=== PATIENT | male | born 1935 | race Caucasian/White ===

== ENCOUNTER → 2018-04-15 | Outpatient (CLI) | payer MEDICARE, OTHER ==
--- NOTE | 2018-04-15 12:51 | US ---
EXAMINATION TYPE: US renal artery duplex complete DATE OF EXAM: 04/15/2018 COMPARISON: Renal ultrasound February 21, 2011 CLINICAL HISTORY: I70.1 Atherosclerosis of renal artery. MEASUREMENTS: RENAL SIZE: Rt Kidney: 11.8 x 5.9 x 5.3cm Lt Kidney: 8.2 x 4.4 x 3.2 RESISTANCE INDEX Right: 0.79 Left: -- RA/AO RATIO (< 3.5 ) Right: 2.1 Left: -- RA VELOCITY ( < 180 cm/s) Right: 166 Left: -- Patient of large body habitus, with extensive overlying bowel gas. Aorta only viewed at mid portion. 2 right kidney cysts 1.) 2.1 x 1.7 x 1.8cm 2.) 4.4 x 3.8 x 3.5cm Left kidney atrophied and ill defined. Unable to visualize blood flow in left kidney. There is one po ssible vessel where flow is picked up but this may not be a vessel in the kidney, it is seen at the a edi of the hilum. Patient states that he had 2 stents put in his left kidney but thought they may be occluded. Suboptimal study due to patient's large body habitus. Visualized portion of aorta shows no aneurysm b ut is not seen in its entirety. Right kidney shows a few larger versus simple appearing cysts. Adjace nt liver is heterogeneously hyperechoic consistent with diffuse fatty infiltration. Velocity measurem ents are satisfactory but upper limits of normal. There is asymmetric atrophy and loss of cortical me dullary differentiation the left kidney without hydronephrosis. Technologist was unable to document f low within left renal artery stents. IMPRESSION: Suspect complete occlusion left renal artery. Atherosclerotic change right artery without significant stenosis clearly seen. Findings can be better evaluated with direct catheter angiogram if desired.
== END | disposition home or self-care (01) ==
LOC: RADUSMAIN 07:46
PROVIDERS: ATTEND Internal Medicine
DX: I70.1 Atherosclerosis of renal artery (principal)
CPT/HCPCS: 93975

== ENCOUNTER → 2018-07-17 | Outpatient (CLI) | payer MEDICARE, OTHER ==
--- NOTE | 2018-07-17 15:12 | US ---
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 DM EXAM MEASUREMENTS: Right Kidney: 11.9 x 5.8 x 5.4 cm Left Kidney: 7.4 x 4.4 x 3.5 cm Right Kidney: Cyst lateral= 4.3 x 4.1 x 3.6 cm/ Cyst mid= 2.5 x 1.6 x 2.2 cm Left Kidney: Appeared atrophic/ Cyst lateral= 2.2 x 1.8 x 1.6 cm Bladder: wnl Bilateral Jets seen: No IMPRESSION: 1. Atrophic left kidney with bilateral simple appearing renal cysts.
== END | disposition home or self-care (01) ==
LOC: RADUSWWP 14:17
PROVIDERS: ATTEND Internal Medicine
DX: N28.1 Cyst of kidney, acquired (principal); N26.1 Atrophy of kidney (terminal); E11.9 Type 2 diabetes mellitus without complications
CPT/HCPCS: 76770

== ENCOUNTER → 2018-07-31 | Outpatient (CLI) | payer MEDICARE, OTHER ==
[2018-07-31 23:19] LABS: Protein, Total 6.9 g/dL (6.2-8.2)
[2018-08-01 10:47] LABS: Lyme IgG/IgM 0.22 Index
[2018-08-02 14:44] LABS: Albumin 3.72 g/dL (3.80-4.90); Gamma Globulin 1.05 g/dL (0.70-1.50)
== END | disposition home or self-care (01) ==
LOC: LABWHC1 15:08
PROVIDERS: ATTEND Psychiatry & Neurology Neurology
DX: R26.81 Unsteadiness on feet (principal); R20.8 Other disturbances of skin sensation; G25.81 Restless legs syndrome; I63.19 Cerebral infarction due to embolism of other precerebral artery; G62.9 Polyneuropathy, unspecified
CPT/HCPCS: 36415; 82550; 82607; 82747; 84165; 84439; 84443; 85652; 86038; 86618

== ENCOUNTER → 2018-10-16 | Outpatient (CLI) | payer MEDICARE, OTHER ==
--- NOTE | 2018-10-16 10:59 | CT ---
EXAMINATION TYPE: CT chest wo con DATE OF EXAM: 10/16/2018 COMPARISON: None HISTORY: Abnormal CXR at doctors office. CT DLP: 330 mGycm. Automated Exposure Control for Dose Reduction was Utilized. TECHNIQUE: CT scan of the thorax is performed without IV contrast. FINDINGS: LUNGS: There is a moderate-sized right pleural effusion with compressive atelectasis. There are calci fic densities within the right lung which may represent granuloma. Left lung demonstrates changes of paraseptal emphysema. No pneumothorax. MEDIASTINUM: Lack of IV contrast is noted to limit evaluation for mediastinal and especially hilar ad enopathy. There are no definitive greater than 1 cm hilar or mediastinal lymph nodes. Heart is enlarg ed. Atherosclerotic change aorta which appears of normal caliber. There is dense coronary artery calc ification and a trace amount pericardial fluid. Hiatal hernia noted. Calcified lymph nodes are noted suggestive of chronic granulomatous disease. OTHER: Numerous splenic granuloma. Left kidney atrophic and contains a calcification measuring less t hanson 5 mm. Right renal lesion measures 15 Hounsfield units suggestive of a cyst and there is evidence of hepatic granuloma and previous cholecystectomy. Hypertrophic and degenerative change of the spine. Trace amount of gynecomastia noted. Thyroid heterogeneous correlate clinically. A small soft tissue density adjacent to the lateral margin of the liver on axial image 57 through 60. Measures 3.5 cm in greatest axis Recommend a dedicated CT of the abdomen with contrast to evaluate to exclude soft tissu e mass versus atypical morphology of the liver. IMPRESSION: 1. Moderate-sized right pleural effusion with compressive atelectasis. 2. Changes of chronic granulomatous disease. 3. COPD. 4. There is a small soft tissue density adjacent to the lateral margin of the liver on axial image 57 through 60. Recommend a dedicated CT of the abdomen with contrast to evaluate to exclude soft tissue mass versus accessory lobe of the liver.
== END | disposition home or self-care (01) ==
LOC: RADCTMAIN 08:24
PROVIDERS: ATTEND Internal Medicine
DX: J44.9 Chronic obstructive pulmonary disease, unspecified (principal); J98.11 Atelectasis; J90 Pleural effusion, not elsewhere classified; M79.89 Other specified soft tissue disorders
CPT/HCPCS: 71250

== ENCOUNTER 2018-10-28 09:45 | Inpatient (IN) | payer MEDICARE, OTHER ==
[2018-10-28] MEDS ORDERED: methylPREDNISolone SOD SUCCI 125 MG/2 ML VIAL IV STA ×2 (10:16→10:24)
[2018-10-28] MEDS ORDERED: IPRATROPIUM-ALBUTEROL 3 ML NEB INHALATION STA (10:18)
[2018-10-28 10:38] LABS: Basophils % (A) 0 %; Eosinophils # (A) 0.1 k/uL (0-0.7); Eosinophils % (A) 1 %; HCT 43.6 % (39.0-53.0); HGB 14.5 gm/dL (13.0-17.5); Lymphocytes % (A) 10 %; MCHC 33.3 g/dL (31.0-37.0); MCV 93.1 fL (80.0-100.0); Mean Platelet Volume 6.6; Monocytes # (A) 0.9 k/uL (0-1.0); Monocytes % (A) 8 %; Neutrophils # (A) 8.4 k/uL (1.3-7.7); Neutrophils % (A) 79 %; Platelet Count 372 k/uL (150-450); RBC 4.68 m/uL (4.30-5.90); RDW 13.9 % (11.5-15.5); WBC 10.6 k/uL (3.8-10.6)
[2018-10-28 10:47] LABS: Albumin 4.2 g/dL (3.5-5.0); Calcium 9.8 mg/dL (8.4-10.2); Potassium 3.7 mmol/L (3.5-5.1); Total Bilirubin 0.6 mg/dL (0.2-1.3); Total Protein 7.7 g/dL (6.3-8.2)
--- NOTE | 2018-10-28 10:51 | XR ---
EXAMINATION TYPE: XR chest 2V DATE OF EXAM: 10/28/2018 COMPARISON: Chest CT 12 days ago. HISTORY: Difficulty in breathing for one month. TECHNIQUE: Frontal and lateral views of the chest are obtained. FINDINGS: There is moderate right-sided pleural effusion felt slightly worsened from prior study wit h associated right lung atelectasis and/or infiltrate. Background chronic emphysematous change. No me diastinal shift. Left lung remains clear. Cardiac silhouette size remains within normal limits with a therosclerotic aorta. Cholecystectomy clips are present. Left renal artery vascular stent redemonstra john. Multilevel spurring thoracic spine is seen. IMPRESSION: Background chronic emphysematous change with moderate size right pleural effusion felt slightly larger from prior study with associated right midlung atelectasis and/or infiltrate again se en. Consider imaging guided thoracentesis for diagnostic and/or therapeutic purposes to further evalu ate.
--- NOTE | 2018-10-28 11:15 | ED ---
General Adult HPI - General Chief complaint: Shortness of Breath Stated complaint: KIARA Time Seen by Provider: 10/28/18 10:05 Source: patient Mode of arrival: ambulatory Limitations: no limitations - History of Present Illness Initial comments: Patient is a 83-year-old male with history of diabetes and COPD is presenting to emergency Department with a chief complaint of shortness of breath. Patient reports he was diagnosed with bronchitis proximally a month ago. Patient was prescribed steroids with minimal improvement. Patient reports going for ev aluation with the primary care who diagnosed with pneumonia. Patient was prescribed antibiotics and another course of steroids. Patient reports no was resolution of symptoms. Patient reports increased dyspnea on exertion. Patient denies any fevers night sweats or chills. Patient reports he finished his course of prescribed medication approximately a week ago. Patient denies any headaches, nausea or vomiting. Patient does report headedness but denies dizziness. Patient denies any chest pain but does report chest tightness and for sedation On full inspiration. Patient does not use oxygen at home. - Related Data Home Medications Medication Instructions Recorded Confirmed Aspirin EC [Ecotrin Low Dose] 81 mg PO DAILY 10/28/18 10/28/18 Atorvastatin [Lipitor] 20 mg PO HS 10/28/18 10/28/18 Hydrochlorothiazide [Hydrodiuril] 25 mg PO DAILY 10/28/18 10/28/18 Insulin Glargine [Lantus] 12 unit SQ DAILY 10/28/18 10/28/18 Levothyroxine Sodium [Synthroid] 25 mcg PO DAILY 10/28/18 10/28/18 Linagliptin [Tradjenta] 5 mg PO DAILY 10/28/18 10/28/18 Multivitamins, Thera [Multivitamin 1 tab PO DAILY 10/28/18 10/28/18 (formulary)] Vitamin B Complex 1 cap PO DAILY 10/28/18 10/28/18 amLODIPine [Norvasc] 5 mg PO DAILY 10/28/18 10/28/18 glipiZIDE [Glucotrol] 5 mg PO AC-BID 10/28/18 10/28/18 hydrALAZINE HCL 25 mg PO BID 10/28/18 10/28/18 Allergies Allergy/AdvReac Type Severity Reaction Status Date / Time No Known Allergies Allergy Verified 10/28/18 10:39 Review of Systems ROS Statement: Those systems with pertinent positive or pertinent negative responses have been documented in the HPI. ROS Other: All systems not noted in ROS Statement are negative. Past Medical History Past Medical History: COPD, Diabetes Mellitus, Hypertension History of Any Multi-Drug Resistant Organisms: None Reported Past Surgical History: Cholecystectomy, Heart Catheterization With Stent, Orthopedic Surgery Additional Past Surgical History / Comment(s): Carpal Tunnel Past Psychological History: No Psychological Hx Reported Smoking Status: Never smoker Past Alcohol Use History: None Reported Past Drug Use History: None Reported - Past Family History Father Family Medical History: Vascular Disorder Additional Family Medical History / Comment(s): Father of arterial sclerosis at the age of 56yrs. Mother Additional Family Medical History / Comment(s): Mother was a heavy drinker. General Exam Limitations: no limitations General appearance: alert, in no apparent distress Head exam: Present: atraumatic, normocephalic, normal inspection Eye exam: Present: normal appearance, PERRL, EOMI. Absent: conjunctival injection Pupils: Present: normal accommodation ENT exam: Present: normal exam, mucous membranes moist, normal external ear exam Neck exam: Present: normal inspection, full ROM Respiratory exam: Present: normal lung sounds bilaterally, wheezes (Wheezing at the right lung base). Absent: chest wall tenderness Cardiovascular Exam: Present: regular rate, normal rhythm, normal heart sounds GI/Abdominal exam: Present: soft. Absent: tenderness, guarding Extremities exam: Present: normal inspection, full ROM Back exam: Present: normal inspection, full ROM. Absent: CVA tenderness (R), CVA tenderness (L) Neurological exam: Present: alert, oriented X3 Psychiatric exam: Present: normal affect, normal mood Skin exam: Present: warm, intact, normal color. Absent: rash Course Vital Signs 10/28/18 10/28/18 10/28/18 09:49 10:50 11:00 Temperature 97.4 F L Pulse Rate 99 93 96 Respiratory 26 H Rate Blood Pressure 174/83 O2 Sat by Pulse 91 L Oximetry 10/28/18 10/28/18 10/28/18 11:02 12:21 12:24 Temperature Pulse Rate 93 81 Respiratory 24 18 Rate Blood Pressure 170/82 167/91 O2 Sat by Pulse 98 94 L 92 L Oximetry 10/28/18 13:00 Temperature Pulse Rate 96 Respiratory 18 Rate Blood Pressure 169/77 O2 Sat by Pulse 95 Oximetry Medical Decision Making - Medical Decision Making Patient is a 83-year-old male with history of COPD is presenting to emergency department with a chief complaint of shortness of breath. Patient was diagnosed with otitis proximally a month ago and underwent a treatment with steroids minimal improvement. Patient was evaluated and diagnosed with pneumonia and underwent a course of steroids antibiotics minimal improvement.. Patient is presenting today with dyspnea on exertion. Patient also reports feeling weak but denies any fevers, night sweats or chills. Patient was given DuoNeb treatment and Solu-Medrol. On reevaluation patient reports an improvement in dyspnea but he is still wheezing on auscultation, bilaterally. Laboratory results indicate no leukocytosis but they show an elevated elective 2.6. Chest x-ray is indicative of right-sided pleural effusion that is increased in size compared to most recent imaging. Patient does also source criteria. Patient given Rocephin and fluids. Patient will be admitted for further medical management. Case discussed with physician. Pulmonology consulted. Admitting physician is Dr. Nye. - Lab Data Result diagrams: 10/28/18 10:16 10/28/18 10:16 Lab Results 10/28/18 10/28/18 10/28/18 Range/Units 10:16 10:16 10:16 WBC 10.6 (3.8-10.6) k/uL RBC 4.68 (4.30-5.90) m/uL Hgb 14.5 (13.0-17.5) gm/dL Hct 43.6 (39.0-53.0) % MCV 93.1 (80.0-100.0) fL MCH 31.0 (25.0-35.0) pg MCHC 33.3 (31.0-37.0) g/dL RDW 13.9 (11.5-15.5) % Plt Count 372 (150-450) k/uL Neutrophils % 79 % Lymphocytes % 10 % Monocytes % 8 % Eosinophils % 1 % Basophils % 0 % Neutrophils # 8.4 H (1.3-7.7) k/uL Lymphocytes # 1.0 (1.0-4.8) k/uL Monocytes # 0.9 (0-1.0) k/uL Eosinophils # 0.1 (0-0.7) k/uL Basophils # 0.0 (0-0.2) k/uL Sodium 136 L (137-145) mmol/L Potassium 3.7 (3.5-5.1) mmol/L Chloride 95 L (98-107) mmol/L Carbon Dioxide 26 (22-30) mmol/L Anion Gap 15 mmol/L BUN 20 (9-20) mg/dL Creatinine 1.42 H (0.66-1.25) mg/dL Est GFR (CKD-EPI)AfAm 53 (>60 ml/min/1.73 sqM) Est GFR (CKD-EPI)NonAf 46 (>60 ml/min/1.73 sqM) Glucose 318 H (74-99) mg/dL Lactic Ac Sepsis Rflx Plasma Lactic Acid Linden 2.7 H* (0.7-2.0) mmol/L Calcium 9.8 (8.4-10.2) mg/dL Total Bilirubin 0.6 (0.2-1.3) mg/dL AST 22 (17-59) U/L ALT 21 (21-72) U/L Alkaline Phosphatase 80 (38-126) U/L Total Protein 7.7 (6.3-8.2) g/dL Albumin 4.2 (3.5-5.0) g/dL 10/28/18 Range/Units 11:00 WBC (3.8-10.6) k/uL RBC (4.30-5.90) m/uL Hgb (13.0-17.5) gm/dL Hct (39.0-53.0) % MCV (80.0-100.0) fL MCH (25.0-35.0) pg MCHC (31.0-37.0) g/dL RDW (11.5-15.5) % Plt Count (150-450) k/uL Neutrophils % % Lymphocytes % % Monocytes % % Eosinophils % % Basophils % % Neutrophils # (1.3-7.7) k/uL Lymphocytes # (1.0-4.8) k/uL Monocytes # (0-1.0) k/uL Eosinophils # (0-0.7) k/uL Basophils # (0-0.2) k/uL Sodium (137-145) mmol/L Potassium (3.5-5.1) mmol/L Chloride (98-107) mmol/L Carbon Dioxide (22-30) mmol/L Anion Gap mmol/L BUN (9-20) mg/dL Creatinine (0.66-1.25) mg/dL Est GFR (CKD-EPI)AfAm (>60 ml/min/1.73 sqM) Est GFR (CKD-EPI)NonAf (>60 ml/min/1.73 sqM) Glucose (74-99) mg/dL Lactic Ac Sepsis Rflx Y Plasma Lactic Acid Linden (0.7-2.0) mmol/L Calcium (8.4-10.2) mg/dL Total Bilirubin (0.2-1.3) mg/dL AST (17-59) U/L ALT (21-72) U/L Alkaline Phosphatase (38-126) U/L Total Protein (6.3-8.2) g/dL Albumin (3.5-5.0) g/dL Disposition Clinical Impression: SOB (shortness of breath), Pleural effusion Disposition: ADMITTED IP TO THIS HOSP Condition: Stable Is patient prescribed a controlled substance at d/c from ED?: No Time of Disposition: 12:02
[2018-10-28] MEDS ORDERED: ACETAMINOPHEN TAB 325 MG TAB PO PRN (11:58)
[2018-10-28] MEDS ORDERED: NALOXONE 0.4 MG/ML 1 ML VIAL IV PRN (11:58)
[2018-10-28] MEDS ORDERED: IBUPROFEN 400 MG TAB PO PRN (11:58)
[2018-10-28] MEDS ORDERED: cefTRIAXone IN SWFI 1,000 MG/10 ML SYRINGE IVP STA (12:01)
[2018-10-28] MEDS ORDERED: INSULIN REGULAR 100 UNIT/ML VIAL SQ ONE (12:45)
[2018-10-28 13:39] VITALS: BMI 29.2
[2018-10-28] MEDS: SODIUM CHLORIDE 0.9% 1,000 ML IV SCH (13:51)
[2018-10-28] MEDS: INSULIN ASPART (NovoLOG) 100 UNIT/ML VIAL SQ SCH ×3 (13:52→21:02)
[2018-10-28 14:24] LABS: Glucose,Whole Blood 310 mg/dL (75-99)
--- NOTE | 2018-10-28 15:53 | US ---
EXAMINATION TYPE: US chest DATE OF EXAM: 10/28/2018 COMPARISON: X ray earlier today. CLINICAL HISTORY: right sided pleural effusion. TECHNIQUE: Targeted ultrasound of the posterior lower right EXAM MEASUREMENTS: Right Pleural Effusion pocket size: 10.8 cm A/P but lung is noted floating within pleural effusion a t depth of 5.4cm A/P Right skin surface to fluid distance: 3.8 cm A/P Right side was marked for possible thoracentesis outside the dept. Pulmonologists are able to review the images in the patient?s EMR. IMPRESSIONS: Confirmation moderate size right pleural effusion on either image saved without signific ant left-sided effusion on single image saved. Findings correlate with same day x-ray.
[2018-10-28 17:32] LABS: Glucose,Whole Blood 261 mg/dL (75-99)
[2018-10-28 20:57] LABS: Glucose,Whole Blood 224 mg/dL (75-99)
[2018-10-28] MEDS: ATORVASTATIN 20 MG TAB PO SCH (21:03)
[2018-10-28] MEDS: hydrALAZINE HCL 25 MG TAB PO SCH (21:03)
[2018-10-28] MEDS: amLODIPine 5 MG TAB PO SCH (21:03)
[2018-10-28] MEDS ORDERED: RX INFO: IV CONTRAST WAS GIVEN 1 EACH MISC MISCELLANE PRN (22:23)
--- NOTE | 2018-10-28 22:31 | P.HPIM ---
History of Present Illness H&P Date: 10/28/18 Chief Complaint: Short of breath History of presenting complaint: This is a very pleasant 83-year-old patient of Dr. Miquel Tran. Chronic stable medical conditions include COPD, diabetes, hypertension, peripheral neuropathy, renal artery stenosis with stent, diverticulosis. Patient also has known coronary artery disease with stent. For about 2 months patient's been having history symptoms. Patient was initially treated for bronchitis given steroids and antibiotics. Continue was diagnosed of pneumonia. But patient is continued to have respiratory symptoms. At rest he is okay but with activity gets easily short winded. Patient has chronic lower extremity edema which is not worse. Denies any orthopnea or PND. There is no phlegm no fever no chills no obvious c ough. Appetite hasn't been the greatest. Patient did have a computed tomography scan of the chest without contrast on October 16. Did show right- sided pleural effusion. Review of systems: GEN.: Tired EYES: None HEENT: None NECK: None RESPIRATORY: As above CARDIOVASCULAR: None GASTROINTESTINAL: None GENITOURINARY: None MUSCULOSKELETAL: Pain in joints LYMPHATICS: None HEMATOLOGICAL: None PSYCHIATRY: None NEUROLOGICAL: None Social history: Smoked for about 32 years stopped in 1985. No alcohol. . Family history: Father from arterial sclerosis age of 56. Physical examination: VITAL SIGNS: 97.4, pulse 99, respirations 26, blood pressure 174/83 , 91% room air GENERAL: Average built, sitting up in a chair, not in distress. EYES: Pupils equal. Conjunctiva normal. HEENT: External appearance of nose and ears normal, oral cavity grossly normal. NECK: JVD not raised; masses not palpable. HEART: First and second heart sounds are normal; edema present. LUNGS: Respiratory rate increased, bronchial breathing on the right side posteriorly. ABDOMEN: Soft, nontender, liver spleen not palpable, no masses palpable. PSYCH: Alert and oriented x3; mood and affect normal. NEUROLOGICAL: Cranial nerves grossly intact; no facial asymmetry, power and sensation grossly intact. LYMPHATICS: No lymph nodes palpable in the axilla and neck MUSCULOSKELETAL: Evidence of OA especially in the hands INVESTIGATIONS, reviewed in the clinical context: Chest x-ray film personally reviewed by me shows a large right-sided pleural effusion Chest ultrasound shows a right-sided large pleural ultrasound EKG tracing personally reviewed by me shows normal sinus rhythm Computed tomography scan of the chest without contrast from October 16 shows right-sided pleural effusion lymphadenopathy cannot be did determined. Assessment: -This is a patient is had progressive respiratory symptoms for a good month now. Who's had seems to have 2 courses of antibiotics. Does not have any fever or chills appetite is decreased. Now has a large right pleural effusion parapneumonic effusions is in the differential. Need to rule out underlying malignancy. Patient is an ex-smoker -COPD in an ex-smoker -Diabetes mellitus type 2 chronically on insulin -Essential hypertension -Hypothyroid -Hyperlipidemia -Primary osteoarthritis Plan: We will hold off any antibiotics does not appear to be active infection at present time. Pulmonary is being consulted. Ultrasound has been done. We'll order a computed tomography scan of the chest abdomen pelvis with contrast. Care was discussed with the patient. Questions were answered. Home medications resumed Accu-Cheks will be followed. Past Medical History Past Medical History: COPD, Diabetes Mellitus, Hypertension Additional Past Medical History / Comment(s): Recent bronchitis/pneumonia, IDDM type II, neuropathy bilateral arms/hands/legs and feet, TIA in 2009, poor circulation, renal artery stenosis with stent, diverticular dx. History of Any Multi-Drug Resistant Organisms: None Reported Past Surgical History: Cholecystectomy, Heart Catheterization With Stent, Orthopedic Surgery Additional Past Surgical History / Comment(s): Carpal Tunnel Additional Past Anesthesia/Blood Transfusion Reaction / Comment(s): Pt states he had a cardiac arrest during PCI/stent procedure. Date of Last Stent Placement:: 04/10/08 Past Psychological History: No Psychological Hx Reported Smoking Status: Never smoker Past Alcohol Use History: None Reported Past Drug Use History: None Reported - Past Family History Father Family Medical History: Vascular Disorder Additional Family Medical History / Comment(s): Father of arterial sclerosis at the age of 56yrs. Mother Additional Family Medical History / Comment(s): Mother was a heavy drinker. Medications and Allergies Home Medications Medication Instructions Recorded Confirmed Type Aspirin EC [Ecotrin Low Dose] 81 mg PO DAILY 10/28/18 10/28/18 History Atorvastatin [Lipitor] 20 mg PO HS 10/28/18 10/28/18 History Hydrochlorothiazide [Hydrodiuril] 25 mg PO DAILY 10/28/18 10/28/18 History Insulin Glargine [Lantus] 12 unit SQ DAILY 10/28/18 10/28/18 History Levothyroxine Sodium [Synthroid] 25 mcg PO DAILY 10/28/18 10/28/18 History Linagliptin [Tradjenta] 5 mg PO DAILY 10/28/18 10/28/18 History Multivitamins, Thera [Multivitamin 1 tab PO DAILY 10/28/18 10/28/18 History (formulary)] Vitamin B Complex 1 cap PO DAILY 10/28/18 10/28/18 History amLODIPine [Norvasc] 5 mg PO DAILY 10/28/18 10/28/18 History glipiZIDE [Glucotrol] 5 mg PO AC-BID 10/28/18 10/28/18 History hydrALAZINE HCL 25 mg PO BID 10/28/18 10/28/18 History Allergies Allergy/AdvReac Type Severity Reaction Status Date / Time No Known Allergies Allergy Verified 10/28/18 10:39 Physical Exam Vitals: Vital Signs Temp Pulse Pulse Resp BP BP Pulse Ox 10/28/18 16:05 95 10/28/18 14:32 18 10/28/18 13:36 97.4 F L 99 16 178/84 95 10/28/18 13:00 96 18 169/77 95 10/28/18 12:24 92 L 10/28/18 12:21 81 18 167/91 94 L 10/28/18 11:02 93 24 170/82 98 10/28/18 11:00 96 10/28/18 10:50 93 10/28/18 09:49 97.4 F L 99 26 H 174/83 91 L Intake and Output 10/28/18 10/28/18 10/28/18 06:59 14:59 22:59 Intake Total 540 840 Balance 540 840 Intake: Oral 540 840 Other: Voiding Method Toilet # Voids 1 2 Weight 77.111 kg Results CBC & Chem 7: 10/28/18 10:16 10/28/18 10:16 Labs: Abnormal Lab Results - Last 24 Hours (Table) 10/28/18 10/28/18 10/28/18 Range/Units 10:16 10:16 10:16 Neutrophils # 8.4 H (1.3-7.7) k/uL Sodium 136 L (137-145) mmol/L Chloride 95 L (98-107) mmol/L Creatinine 1.42 H (0.66-1.25) mg/dL Glucose 318 H (74-99) mg/dL POC Glucose (mg/dL) (75-99) mg/dL Plasma Lactic Acid Linden 2.7 H* (0.7-2.0) mmol/L 10/28/18 10/28/18 10/28/18 Range/Units 13:45 14:14 17:30 Neutrophils # (1.3-7.7) k/uL Sodium (137-145) mmol/L Chloride (98-107) mmol/L Creatinine (0.66-1.25) mg/dL Glucose (74-99) mg/dL POC Glucose (mg/dL) 310 H 261 H (75-99) mg/dL Plasma Lactic Acid Linden 3.0 H* (0.7-2.0) mmol/L 10/28/18 10/28/18 Range/Units 18:18 20:45 Neutrophils # (1.3-7.7) k/uL Sodium (137-145) mmol/L Chloride (98-107) mmol/L Creatinine (0.66-1.25) mg/dL Glucose (74-99) mg/dL POC Glucose (mg/dL) 224 H (75-99) mg/dL Plasma Lactic Acid Linden 3.4 H* (0.7-2.0) mmol/L Thrombosis Risk Factor Assmnt - Choose All That Apply Any of the Below Risk Factors Present?: Yes Each Factor Represents 1 point: Abnormal pulmonary function (COPD), Obesity (BMI >25), Serious lung disease incl. pneumonia (< 1month) Other Risk Factors: Yes Each Risk Factor Represents 3 Points: Age 75 years or older Other congenital or acquired thrombophilia - If yes, enter type in comment: No Thrombosis Risk Factor Assessment Total Risk Factor Score: 6 Thrombosis Risk Factor Assessment Level: High Risk
[2018-10-29] MEDS: LEVOTHYROXINE 25 MCG TAB PO SCH (06:28)
[2018-10-29 07:18] LABS: Glucose,Whole Blood 307 mg/dL (75-99)
[2018-10-29] MEDS: IOPAMIDOL-300 CONTRAST 30 ML VIAL (ORAL USE) PO PRN ×2 (07:52→09:00)
[2018-10-29] MEDS: amLODIPine 5 MG TAB PO SCH ×2 (07:53→21:40)
[2018-10-29] MEDS: LINAGLIPTIN 5 MG TABLET PO SCH (07:53)
[2018-10-29] MEDS: HYDROCHLOROTHIAZIDE 25 MG TAB PO SCH (07:53)
[2018-10-29] MEDS: ASPIRIN 81 MG PO SCH (07:54)
[2018-10-29] MEDS: hydrALAZINE HCL 25 MG TAB PO SCH ×2 (07:54→20:25)
[2018-10-29] MEDS: INSULIN ASPART (NovoLOG) 100 UNIT/ML VIAL SQ SCH ×9 (07:54→22:23)
[2018-10-29] MEDS: MULTIVITAMINS, THERA 1 EACH TAB PO SCH (07:54)
[2018-10-29] MEDS: glipiZIDE 5 MG TAB PO SCH ×2 (07:54→17:28)
[2018-10-29] MEDS: INSULIN DETEMIR (LEVEMIR) 100 UNIT/ML SYR SQ SCH (07:54)
[2018-10-29 08:32] LABS: Albumin 4.1 g/dL (3.5-5.0); Calcium 9.6 mg/dL (8.4-10.2); Potassium 4.5 mmol/L (3.5-5.1); Total Bilirubin 0.5 mg/dL (0.2-1.3); Total Protein 7.6 g/dL (6.3-8.2)
--- NOTE | 2018-10-29 09:31 | ECHOF ---
Referral Reason:Assess LV function MEASUREMENTS -------- HEIGHT: 162.6 cm WEIGHT: 77.1 kg BP: 183/80 RVIDd: 3.2 cm (< 3.3) IVSd: 1.5 cm (0.6 - 1.1) LVIDd: 3.2 cm (3.9 - 5.3) LVPWd: 1.3 cm (0.6 - 1.1) IVSs: 1.8 cm LVIDs: 2.0 cm LVPWs: 1.6 cm LA Diam: 3.7 cm (2.7 - 3.8) LAESV Index (A-L): 20.34 ml/m Ao Diam: 3.2 cm (2.0 - 3.7) AV Cusp: 1.7 cm (1.5 - 2.6) MV EXCURSION: 15.271 mm (> 18.000) MV EF SLOPE: 54 mm/s (70 - 150) EPSS: 0.4 cm MV E Bao: 1.13 m/s MV DecT: 176 ms MV A Bao: 1.57 m/s MV E/A Ratio: 0.72 RAP: 5.00 mmHg RVSP: 52.69 mmHg FINDINGS -------- Sinus rhythm. This was a technically adequate study. The left ventricular size is normal. There is moderate concentric left ventricular hypertrophy. O verall left ventricular systolic function is normal with, an EF between 60 - 65 %. The right ventricle is normal in size. Normal LA size by volume 22+/-6 ml/m2. The right atrium is normal in size. Interatrial and interventricular septum intact. There is mild aortic valve sclerosis. Moderate mitral annular calcification present. Mild tricuspid regurgitation present. There is moderate pulmonary hypertension. The right ventric ular systolic pressure, as measured by Doppler, is 52.69mmHg. Trace/mild (physiologic) pulmonic regurgitation. The aortic root size is normal. Normal inferior vena cava with normal inspiratory collapse consistent with estimated right atrial pre ssure of 5 mmHg. There is no pericardial effusion. CONCLUSIONS -------- 1. Sinus rhythm. 2. This was a technically adequate study. 3. The left ventricular size is normal. 4. There is moderate concentric left ventricular hypertrophy. 5. Overall left ventricular systolic function is normal with, an EF between 60 - 65 %. 6. The right ventricle is normal in size. 7. Normal LA size by volume 22+/-6 ml/m2. 8. The right atrium is normal in size. 9. Interatrial and interventricular septum intact. 10. There is mild aortic valve sclerosis. 11. Moderate mitral annular calcification present. 12. Mild tricuspid regurgitation present. 13. There is moderate pulmonary hypertension. 14. The right ventricular systolic pressure, as measured by Doppler, is 52.69mmHg. 15. Trace/mild (physiologic) pulmonic regurgitation. 16. The aortic root size is normal. 17. Normal inferior vena cava with normal inspiratory collapse consistent with estimated right atrial pressure of 5 mmHg. 18. There is no pericardial effusion. TRAFFIC EXPERT: Mya Barker RDCS
[2018-10-29 11:23] LABS: Glucose,Whole Blood 298 mg/dL (75-99)
--- NOTE | 2018-10-29 11:57 | CT ---
EXAMINATION TYPE: CT ChestAbdPelvis w con DATE OF EXAM: 10/29/2018 COMPARISON: 10/16/2018 HISTORY: 83-year-old male Right pleural effusion TECHNIQUE: Contiguous axial scanning of the chest, abdomen, and pelvis performed with IV Contrast, pa tient injected with 80 mL of Isovue 300. Delayed images through the kidneys were obtained. Coronal/sa gittal reconstructions performed. CT DLP: 1589 mGycm Automated exposure control for dose reduction was used. FINDINGS: CHEST: Heart normal size without pericardial effusion. Coronary vessel calcifications and mild aortic annula r calcifications. Mild to moderate atherosclerotic arch calcifications with conventional branching anatomy. Calcified right hilar and subcarinal lymph nodes compatible with prior granulomatous disease. Otherwi se, scattered nonenlarged mediastinal lymph nodes are present. Mild bilateral gynecomastia. There is a large right pleural effusion. Some effusion is located anteriorly in the upper lung sugges ting some areas of loculation. There is collapse of the right middle and lower lobes and collapse of most of the right upper lobe as well. Small portion of the right upper lobe remains aerated. Mild to moderate centrilobular emphysema. Tiny calcified granuloma subpleural lingula. ABDOMEN: Exczz-sw-rykwders sized hiatal hernia. Calcified granulomas within the liver. No focal liver lesion otherwise seen. Portal venous system is patent. No biliary ductal dilatation. There is an ovoid area of soft tissue density along the right posterolateral aspect of the inferior r ight liver lobe of uncertain etiology. This measures 3.6 x 1.4 cm, unchanged from 10/16/2018. Cholecystectomy clips. Adrenal glands within normal limits. 4.4 cm cyst within the right kidney and smaller adjacent cyst. Atrophic left kidney with an indetermi garry, soft tissue density 1.8 cm lesion posterior aspect. A renal artery stent is present at the left renal artery origin. Multiple calcified granulomas within the spleen. Small anterior splenule. Fatty atrophy of the pancre as. Moderate atherosclerotic calcifications abdominal aorta and iliac artery. Moderate to large stool burden. Left hemicolonic diverticulosis, greatest in the sigmoid colon. No pe ricolonic inflammatory change. No mesenteric or retroperitoneal lymphadenopathy. Pelvis: Bladder partially distended. Mild circumference of wall thickening may relate to incomplete distentio n. Prostate gland measures 4.1 cm wide. Multiple pelvic phleboliths. No abnormal fluid collection in the pelvis or pelvic lymphadenopathy. Bones: Degenerative changes of the hips, SI joints, and lower lumbar spine. IMPRESSION: 1. LARGE, PARTIALLY LOCULATED RIGHT PLEURAL EFFUSION. COLLAPSE OF THE RIGHT MIDDLE AND RIGHT LOWER LO BES AND PARTIAL COLLAPSE OF THE RIGHT UPPER LOBE WELL. CONSIDER FLUID ANALYSIS TO ASSESS FOR ETIOL OGY OF THE EFFUSION. 2. COPD WITH MILD EMPHYSEMA. PRIOR GRANULOMATOUS DISEASE. 3. OVOID 3.6 X 1.4 CM SOFT TISSUE DENSITY LESION POSTERIOR AND LATERAL TO THE INFERIOR RIGHT LIVER LO BE COULD REPRESENT SMALL AMOUNT OF LOCULATED ASCITES. THE EXACT ETIOLOGY IS UNCLEAR. CONSIDER TARGETE D ULTRASOUND TO FURTHER ASSESS. 4. 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 THERE IS AN INDETERMINATE 1 .8 CM LESION POSTERIORLY. SMALL SOLID MASS OR CYST ARE BOTH POSSIBLE. SIX-MONTH FOLLOW-UP TO REASSESS . 5. MODERATE TO LARGE STOOL BURDEN. LEFT-SIDED COLONIC DIVERTICULOSIS, GREATEST IN THE SIGMOID COLON W ITHOUT ACUTE DIVERTICULITIS. 6. MILD CIRCUMFERENTIAL BLADDER WALL THICKENING MAY RELATE TO UNDER DISTENTION. CHRONIC BLADDER WALL HYPERTROPHY OR CYSTITIS ARE ALSO POSSIBLE.
--- NOTE | 2018-10-29 12:04 | PCN ---
PROCEDURE NOTE PROCEDURE: Right thoracentesis. PREOPERATIVE DIAGNOSIS: Right pleural effusion. POSTOP DIAGNOSIS: Right pleural effusion. There was informed consent and universal timeout. Ultrasound guidance was used and appropriate fluid pocket was identified and marked. Patient was positioned, prepped and draped in usual sterile fashion. Lidocaine was used to anesthetize the area. A Thoracentesis catheter was introduced into the pleural space and fluid was removed. Blood loss was none. A chest x-ray was ordered to evaluate for pneumothorax. Total Fluid Removed: 1950 mL Color of Fluid: Dark Bloody Fluid was sent for appropriate laboratory tests. Patient tolerated the procedure well and there were no complications. Post thoracentesis chest x-ray was ordered. The patient's family was in the room with the procedure was completed. He tolerated the procedure well. There was no immediate complication. MMODL / IJN: [id number] /
--- NOTE | 2018-10-29 12:34 | CONS ---
CONSULTATION PULMONARY/CRITICAL CARE CONSULTATION: DATE OF SERVICE: 10/29/2018 This is an 83-year-old male who was admitted with a diagnosis of shortness of breath. He was apparently having shortness of breath for more than a month now. He has been seen by his primary doctor and given multiple rounds of steroids and antibiotics without any improvement at all. The patient apparently saw his primary care and was diagnosed as having "pneumonia." The patient states that he got more and more short of breath over the last month. Medications did not really seem to help. There was no fever or night sweats or chills. He did have a bit of a cough but really not producing much phlegm. Actually, no phlegm. No chest pain or chest discomfort. No nausea, vomiting or diarrhea. No other complaints at this time. We are asked to see him because of a large right-sided pleural effusion. We did do a thoracentesis today. We removed nearly 2000 mL of dark bloody fluid from the right pleural space. It is an ominous sign it may reflect underlying malignancy. The patient tolerated the procedure well. The fluid will be sent for analysis. The patient's family was in the room when the thoracentesis was performed by myself. HOME MEDICATIONS: Include aspirin, Lipitor, HydroDIURIL, insulin, levothyroxine, Tradjenta, multivitamins, vitamin B complex, Norvasc, Glucotrol, and hydralazine. ALLERGIES: Denied. MEDICAL HISTORY: Includes diabetes and hypertension. He also has a history of hypothyroidism and hyperlipidemia. Additional history includes CAD. SURGICAL HISTORY: Includes cholecystectomy, PCI with stent placement, and orthopedic procedures such as carpal tunnel release. SOCIAL HISTORY: Negative for tobacco, alcohol or illicit drug use. FAMILY HISTORY: Positive for ASHD at the age of 56. Mother apparently was a heavy drinker. Likely from alcoholic liver disease. REVIEW OF SYSTEMS: CONSTITUTIONAL: Negative. NEUROLOGIC: Negative. HEENT: Negative. CARDIOVASCULAR: Negative. PULMONARY: Shortness of breath, nonproductive cough. GI: Negative. : Negative. RHEUMATOLOGIC: Negative. IMMUNOLOGIC: Negative. ENDOCRINOLOGIC: Negative. DERMATOLOGIC: Negative. Current vital signs are reviewed, they include a temperature 97.7, heart rate 95, respiratory rate 24, blood pressure 150/72 mean 98. His 2 L saturation is 100%. Appears in no acute distress. HEENT: Examination is grossly unremarkable. Mucous membranes are moist. NECK: Supple. Full range of motion. No adenopathy, thyromegaly, or neck vein distention. CARDIOVASCULAR: Examination reveals regular rhythm and rate. Heart rate 90. S1, S2 normal. LUNGS: Reveal dullness throughout the right lung. Diminished breath sounds on the right side. Left lung sounds are clear. No wheezes or crackles. ABDOMEN: Soft. Bowel sounds are heard. EXTREMITIES: Intact. No cyanosis, clubbing, or edema. SKIN: Without rash. NEUROLOGIC: Examination is brief but nonfocal. Chest x-ray shows a moderate to large right-sided pleural effusion. The chest ultrasound was done to confirm the fluid presence and location. LABS: Reviewed. White count 10.6, hemoglobin, hematocrit and platelet count all normal. Sodium 132, potassium 4.5, chloride 97, CO2 is 22, anion gap 13. BUN and creatinine were 27 and 1.56. His initial lactic acid was 4, dropped down to 1.7. Microbiology is pending or negative. Medications are reviewed. Currently, he is on ceftriaxone for suspected pneumonia. He is also on steroids which he does not need. ASSESSMENT: 1. Large right-sided pleural effusion, which is ominous looking on appearance and may reflect underlying infection and/or a malignancy. 2. Previous history of PCI for coronary artery disease. 3. Hyperlipidemia. 4. Hypertension. 5. Diabetes mellitus. 6. Lifelong nonsmoker. 7. Doubt pneumonia at this time. PLAN: The fluid was sent off for both chemistry, cytology and microbiology. Additional recommendations and suggestions are forthcoming. X-ray was ordered after the procedure. Will continue to follow. Prognosis is guarded. The fluid looks ominous in the sense that it may be consistent with either inflammatory infectious or neoplastic process. The patient tolerated the thoracentesis well. MMODL / IJN: [id number] /
--- NOTE | 2018-10-29 12:40 | XR ---
EXAMINATION TYPE: XR chest 1V portable DATE OF EXAM: 10/29/2018 Comparison: 10/28/2018 Clinical History: 83-year-old male Recent bedside right side thoracentesis Findings: Heart normal size. Atherosclerotic arch calcifications. There is residual glodi-ni-rqxoquvw right ple ural effusion with patchy mid and lower lung opacity. Curvilinear edge could represent a loculated sm all pneumothorax at the right base. Left lung and pleural space relatively clear. Impression: 1. Residual small to moderate right pleural effusion after thoracentesis. There is a curvilinear edge at the right base that could represent a small loculated pneumothorax. Finding called to Nurse Maia haro at 12:38pm. 2. Patchy mid and lower lung opacities on the right could represent residual atelectasis or developin g edema.
[2018-10-29] MEDS: SODIUM CHLORIDE 0.9% 1,000 ML IV SCH (13:20)
[2018-10-29 14:50] LABS: Appearance,BF Bloody; Color,BF Red; Nucleated Cells, Body Fluid 2000 /uL
[2018-10-29 14:51] LABS: RBC, Body Fluid 255500 /uL
[2018-10-29 14:56] LABS: Mononuclear WBC,Body Fluid 35 %; Polynuclear WBC,Body Fluid 60 %; Total Cells Counted,Body Fluid 100
[2018-10-29 17:07] LABS: Glucose,Whole Blood 197 mg/dL (75-99)
[2018-10-29] MEDS: ATORVASTATIN 20 MG TAB PO SCH (20:25)
[2018-10-29 20:32] LABS: Glucose,Whole Blood 211 mg/dL (75-99)
[2018-10-29 21:09] LABS: Total Protein, Body Fluid 4600 mg/dL
[2018-10-29] MEDS: SENNOSIDES 8.6 MG TAB PO SCH (22:39)
--- NOTE | 2018-10-29 23:53 | P.PN ---
Progress Note - Text Progress Note Date: 10/29/18 Chief Complaint: Short of breath Interval history: This is a very pleasant 83-year-old patient of Dr. Miquel Tran. Chronic stable medical conditions include COPD, diabetes, hypertension, peripheral neuropathy, renal artery stenosis with stent, diverticulosis. Patient also has known coronary artery disease with stent. For about 2 months patient's been having history symptoms. Patient was initially treated for bronchitis given steroids and antibiotics. Continue was diagnosed of pneumonia. But patient is continued to have respiratory symptoms. At rest he is okay but with activity gets easily short winded. Patient has chronic lower extremity edema which is not worse. Denies any orthopnea or PND. There is no phlegm no fever no chills no obvious cough. Appetite hasn't been the greatest. Patient did have a computed tomography scan of the chest without contrast on October 16. Did show right- sided pleural effusion. -Today-saw the patient earlier today. Had just returned from a computed tomography scan her chest abdomen pelvis. Awaiting to see pulmonary. No change in breathing patent Review of systems: Was done for constitutional, cardiovascular, GI, pulmonary. relevant finding as above Active Medications Acetaminophen (Tylenol Tab) 650 mg PO Q6HR PRN PRN Reason: Mild Pain or Fever > 100.5 Amlodipine Besylate (Norvasc) 5 mg PO BID [facility] Last Admin: 10/29/18 21:40 Dose: 5 mg Documented by: Aspirin (Aspirin) 81 mg PO DAILY [facility] Last Admin: 10/29/18 07:54 Dose: 81 mg Documented by: Atorvastatin Calcium (Lipitor) 20 mg PO HS [facility] Last Admin: 10/29/18 20:25 Dose: 20 mg Documented by: Glipizide (Glucotrol) 5 mg PO AC-BID [facility] Last Admin: 10/29/18 17:28 Dose: 5 mg Documented by: Hydralazine HCl (Apresoline) 25 mg PO BID [facility] Last Admin: 10/29/18 20:25 Dose: 25 mg Documented by: Hydrochlorothiazide (Hydrodiuril) 25 mg PO DAILY [facility] Last Admin: 10/29/18 07:53 Dose: 25 mg Documented by: Sodium Chloride (Saline 0.9%) 1,000 mls @ 20 mls/hr IV .Q24H [facility] Last Admin: 10/29/18 13:20 Dose: 20 mls/hr Documented by: Insulin Aspart (Novolog) 0 unit SQ ACHS [facility]; Protocol Last Admin: 10/29/18 22:23 Dose: Not Given Documented by: Insulin Aspart (Novolog) 0 unit SQ ACHS [facility]; Protocol Last Admin: 10/29/18 21:52 Dose: 3 unit Documented by: Insulin Detemir (Levemir) 12 unit SQ DAILY@0700 [facility] Last Admin: 10/29/18 07:54 Dose: 12 unit Documented by: Levothyroxine Sodium (Synthroid) 25 mcg PO DAILY@0630 [facility] Last Admin: 10/29/18 06:28 Dose: 25 mcg Documented by: Linagliptin (Tradjenta) 5 mg PO DAILY [facility] Last Admin: 10/29/18 07:53 Dose: 5 mg Documented by: Miscellaneous Information (Rx Info: Iv Contrast Was Given) 1 each MISCELLANE DAILY PRN PRN Reason: Per Protocol Stop: 10/30/18 22:24 Multivitamins (Theragran) 1 each PO DAILY [facility] Last Admin: 10/29/18 07:54 Dose: 1 each Documented by: Naloxone HCl (Narcan) 0.2 mg IV Q2M PRN PRN Reason: Opioid Reversal Senna (Senokot) 8.6 mg PO BID [facility] Last Admin: 10/29/18 22:39 Dose: Not Given Documented by: Physical examination: VITAL SIGNS: 97.7, 98, 24, 1 47 x 16, 100% on 2 L GENERAL: Sitting at the edge of the bed. EYES: Pupils equal. Conjunctiva normal. HEENT: External appearance of nose and ears normal, oral cavity grossly normal. NECK: JVD not raised; masses not palpable. HEART: First and second heart sounds are normal; edema present. LUNGS: Respiratory rate increased, bronchial breathing on the right side posteriorly. ABDOMEN: Soft, nontender, liver spleen not palpable, no masses palpable. PSYCH: Alert and oriented x3; mood and affect normal. INVESTIGATIONS, reviewed in the clinical context: Sodium 132 potassium 4.5 BUN 27 creatinine 1.56 Accu-Cheks 292, 307, 298 Computed tomography scan of the chest abdomen pelvis-large partially loculated right pleural effusion, collapse of the right middle and right lower lobe and partial collapse of the right upper lobe. Atrophic left kidney. Left-sided colonic diverticulosis Admission tests: Chest x-ray film personally reviewed by me shows a large right-sided pleural effusion Chest ultrasound shows a right-sided large pleural ultrasound EKG tracing personally reviewed by me shows normal sinus rhythm Computed tomography scan of the chest without contrast from October 16 shows right-sided pleural effusion lymphadenopathy cannot be did determined. Assessment: -Collapse of the right lower and middle lobe and partial upper lobe of the lung -Loculated right pleural effusion 19 50 mL of bloody fluid was removed by thoracentesis -Localized right liver density -COPD in an ex-smoker -Diabetes mellitus type 2 chronically on insulin -Essential hypertension -Hypothyroid -Hyperlipidemia -Primary osteoarthritis -Atrophic left kidney -Colonic diverticulosis -Hyponatremia likely hypoosmolar, POA Plan: Patient did have thoracentesis per Dr. Jarquin of 19 50 mL bloody fluid was obtained. Patient may need bronchoscopy. Await cytology studies. Given different abdominal findings also get oncology involved.
[2018-10-30] MEDS: LEVOTHYROXINE 25 MCG TAB PO SCH (06:29)
[2018-10-30 07:15] LABS: Glucose,Whole Blood 128 mg/dL (75-99)
--- NOTE | 2018-10-30 07:38 | XR ---
EXAMINATION TYPE: XR chest 2V DATE OF EXAM: 10/30/2018 COMPARISON: Chest x-ray and CT from yesterday. HISTORY: Hydropneumothorax progress study. TECHNIQUE: Frontal and lateral views of the chest are obtained. FINDINGS: There is persistent small to moderate-sized right basilar hydropneumothorax with associate d patchy right basilar atelectasis and/or infiltrate. No mediastinal shift. Left lung remains clear. The cardiac silhouette size remains within normal limits. The osseous structures are intact. IMPRESSION: No significant change from most recent chest x-ray. Partially loculated vjfhn-to-lsugqcq e size right lower lung hydropneumothorax with associated right basilar atelectasis and/or infiltrate
[2018-10-30] MEDS: INSULIN ASPART (NovoLOG) 100 UNIT/ML VIAL SQ SCH ×4 (07:57→13:51)
[2018-10-30] MEDS: SENNOSIDES 8.6 MG TAB PO SCH ×2 (08:16→08:18)
[2018-10-30] MEDS: ASPIRIN 81 MG PO SCH (08:16)
[2018-10-30] MEDS: glipiZIDE 5 MG TAB PO SCH (08:16)
[2018-10-30] MEDS: hydrALAZINE HCL 25 MG TAB PO SCH (08:17)
[2018-10-30] MEDS: HYDROCHLOROTHIAZIDE 25 MG TAB PO SCH (08:17)
[2018-10-30] MEDS: MULTIVITAMINS, THERA 1 EACH TAB PO SCH (08:17)
[2018-10-30] MEDS: INSULIN DETEMIR (LEVEMIR) 100 UNIT/ML SYR SQ SCH (08:17)
[2018-10-30] MEDS: amLODIPine 5 MG TAB PO SCH (08:17)
[2018-10-30] MEDS: LINAGLIPTIN 5 MG TABLET PO SCH (08:17)
--- NOTE | 2018-10-30 11:02 | P.PN ---
Subjective Progress Note Date: 10/30/18 Principal diagnosis: Shortness of breath, large right-sided pleural effusion On 10/30/2018 patient seen in follow-up on medical surgical floor. He is awake and alert, he states his shortness of breath has significantly improved since the right-sided thoracentesis would removal of 1900 mL of dark pleural fluid, pleural fluid analysis reviewed today, showing fluid protein of 4.6 g, and fluid LDH of 528, and this is an exudative fluid, cytology is pending, cultures are negative thus far. He denies any chest pain, he is currently on 2 L of oxygen and the pulse ox of 94%, yesterday postprocedure patient developed some loculated pneumothorax on the right, clinically asymptomatic, follow-up chest x- ray today shows partially loculated jvpqg-ip-wvyumfed size right lower lung hydropneumothorax with associated right basilar atelectasis, and there is some reaccumulation of the fluid in the right lung. No fever or chills, vital signs are stable, no cough or congestion. Patient is tolerating ambulation, he is requesting to go home today, from pulmonary perspective patient is stable for discharge home with outpatient follow-up Objective - Vital Signs Vital signs: Vital Signs Temp 97.8 F 10/30/18 04:45 Pulse 74 10/30/18 04:45 Resp 20 10/30/18 04:45 BP 140/72 10/30/18 04:45 Pulse Ox 94 L 10/30/18 04:45 Intake & Output 10/29/18 10/30/18 10/30/18 18:59 06:59 18:59 Intake Total 1080 100 Balance 1080 100 Intake: Oral 1080 100 Other: Voiding Method Toilet # Voids 1 1 - Exam GENERAL EXAM: Alert, pleasant, 83-year-old white male, on 2 L of oxygen with a pulse ox of 94% comfortable in no apparent distress. HEAD: Normocephalic/atraumatic. EYES: Normal reaction of pupils, equal size. Conjunctiva pink, sclera white. NOSE: Clear with pink turbinates. THROAT: No erythema or exudates. NECK: No masses, no JVD, no thyroid enlargement, no adenopathy. CHEST: No chest wall deformity. Symmetrical expansion. LUNGS: Equal air entry with diminished breath sounds right lower lung CVS: Regular rate and rhythm, normal S1 and S2, no gallops, no murmurs, no rubs ABDOMEN: Soft, nontender. No hepatosplenomegaly, normal bowel sounds, no guarding or rigidity. EXTREMITIES: No clubbing, no edema, no cyanosis, 2+ pulses and upper and lower extremities. MUSCULOSKELETAL: Muscle strength and tone normal. SPINE: No scoliosis or deformity SKIN: No rashes CENTRAL NERVOUS SYSTEM: Alert and oriented -3. No focal deficits, tone is normal in all 4 extremities. PSYCHIATRIC: Alert and oriented -3. Appropriate affect. Intact judgment and insight. - Labs CBC & Chem 7: 10/28/18 10:16 10/29/18 05:52 Labs: Abnormal Lab Results - Last 24 Hours (Table) 10/29/18 10/29/18 10/29/18 Range/Units 11:12 17:00 20:28 POC Glucose (mg/dL) 298 H 197 H 211 H (75-99) mg/dL 10/30/18 Range/Units 07:11 POC Glucose (mg/dL) 128 H (75-99) mg/dL Microbiology - Last 24 Hours (Table) 10/29/18 11:00 Anaerobic Culture - Preliminary Pleural Fluid 10/29/18 11:00 Body Fluid Culture - Preliminary Pleural Fluid 10/29/18 11:00 Fungal Culture - Preliminary Pleural Fluid 10/29/18 11:00 Acid Fast Bacilli Culture - Preliminary Pleural Fluid 10/28/18 10:40 Blood Culture - Preliminary Blood No Growth after 24 hours Assessment and Plan Plan: Assessment: #1. Dyspnea related to large right pleural effusion, status post right-sided thoracentesis would removal of 1900 mL of dark pleural fluid, with pleural fluid analysis indicated of exudative fluid, cytology is pending, doubt infectious etiology, suspect malignant process #2. Coronary artery disease with previous PCI #3. Hypertension #4. Hyperlipidemia #5. Diabetes mellitus #6. Lifelong nonsmoker Plan: A pulmonary perspective patient is stable for discharge home today, cytology is pending, may not be back for a couple more days, clinically patient remains stable, follow-up chest x-ray today shows partial reaccumulation of fluid in the right lung, but overall patient states his breathing much improved since the thoracentesis. He'll need to follow up with Dr. Rivas in the office next week for results of the pleural fluid cytology, pleural fluid cultures are pending, but infectious process is doubtful, suspect malignancy as the underlying cause of right pleural effusion I performed a history & physical examination of the patient and discussed their management with my nurse practitioner, Mireille Tillman. I reviewed the nurse practitioner's note and agree with the documented findings and plan of care. Lung sounds are positive for diminished breath sounds right lower lobe. The findings and the impression was discussed with the patient. I attest to the do cumentation by the nurse practitioner. Time with Patient: Less than 30
[2018-10-30 12:05] LABS: Glucose,Whole Blood 107 mg/dL (75-99)
[2018-10-30] MEDS: SODIUM CHLORIDE 0.9% 1,000 ML IV SCH (13:52)
[2018-10-30 15:49] VITALS: BP 142/81; PULSE 106; RESP 18; TEMP 97.6
--- NOTE | 2018-11-03 00:18 | P.DS ---
Providers Date of admission: 10/28/18 11:53 Expected date of discharge: 10/30/18 Attending physician: Ernesto Nye Consults: 10/28/18 11:58 Consult Physician Stat Consulting Provider: Vasquez Rivas Consult Reason/Comments: Pleural effusion Do you want consulting provider notified?: Yes 10/29/18 23:53 Consult Physician Routine Consulting Provider: Duran Kapadia Consult Reason/Comments: Abdominal masses, and collapsed right middle and lower lung Do you want consulting provider notified?: Yes Primary care physician: [facility] Course: Hospital course: This is a very pleasant 83-year-old patient of Dr. Miquel Tran. Chronic stable medical conditions include COPD, diabetes, hypertension, peripheral neuropathy, renal artery stenosis with stent, diverticulosis. Patient also has known coronary artery disease with stent. For about 2 months patient's been having history symptoms. Patient was initially treated for bronchitis given steroids and antibiotics. He was then treated for pneumonia. But patient is continued to have respiratory symptoms. At rest he is okay but with activity gets easily short winded. Patient has chronic lower extremity edema which is not worse. Denies any orthopnea or PND. There is no phlegm no fever no chills no obvious cough. Appetite hasn't been the greatest. Patient did have a computed tomography scan of the chest without contrast on October 16. Did show right- sided pleural effusion. I ordered a computed tomography scan of the chest abdomen pelvis with contrast. Patient is found to have right middle and lower lobe collapse and some involvement of the right upper lobe. Patient also supportive loculate effusion.. 195 0 mL of bloody fluid was tapped. Patient is stable following the procedure. Dr. Sisi younger the patient to be discharged to be followed up as an outpatient. Consultation: Dr. Rivas from pulmonary Physical examination: VITAL SIGNS: 97.6, 106, 18, 142/81, 92% room air GENERAL: Sitting at the edge of the bed. EYES: Pupils equal. Conjunctiva normal. HEENT: External appearance of nose and ears normal, oral cavity grossly normal. NECK: JVD not raised; masses not palpable. HEART: First and second heart sounds are normal; edema present. LUNGS: Respiratory rate increased, bronchial breathing on the right side posteriorly. ABDOMEN: Soft, nontender, liver spleen not palpable, no masses palpable. PSYCH: Alert and oriented x3; mood and affect normal. INVESTIGATIONS, reviewed in the clinical context: Sodium 132 potassium 4.5 BUN 27 creatinine 1.56 Accu-Cheks 292, 307, 298 Computed tomography scan of the chest abdomen pelvis-large partially loculated right pleural effusion, collapse of the right middle and right lower lobe and partial collapse of the right upper lobe. Atrophic left kidney. Left-sided colonic diverticulosis Admission tests: Chest x-ray film personally reviewed by me shows a large right-sided pleural effusion Chest ultrasound shows a right-sided large pleural ultrasound EKG tracing personally reviewed by me shows normal sinus rhythm Computed tomography scan of the chest without contrast from October 16 shows right-sided pleural effusion lymphadenopathy cannot be did determined. Discharge diagnosis: -Collapse of the right lower and middle lobe and partial upper lobe of the right lung -Loculated right pleural effusion 19 50 mL of bloody fluid was removed by thoracentesis -Localized right liver density -COPD in an ex-smoker -Diabetes mellitus type 2 chronically on insulin -Essential hypertension -Hypothyroid -Hyperlipidemia -Primary osteoarthritis -Atrophic left kidney -Colonic diverticulosis -Hyponatremia likely hypoosmolar, POA Disposition: Home Patient Condition at Discharge: Stable Plan - Discharge Summary Discharge Rx Participant: No New Discharge Prescriptions: Continue Vitamin B Complex 1 cap PO DAILY Multivitamins, Thera [Multivitamin (formulary)] 1 tab PO DAILY Linagliptin [Tradjenta] 5 mg PO DAILY Insulin Glargine [Lantus] 12 unit SQ DAILY Atorvastatin [Lipitor] 20 mg PO HS Aspirin EC [Ecotrin Low Dose] 81 mg PO DAILY hydrALAZINE HCL 25 mg PO BID glipiZIDE [Glucotrol] 5 mg PO AC-BID amLODIPine [Norvasc] 5 mg PO BID Hydrochlorothiazide [Hydrodiuril] 25 mg PO DAILY Levothyroxine Sodium [Synthroid] 25 mcg PO DAILY Discharge Medication List Aspirin EC [Ecotrin Low Dose] 81 mg PO DAILY 10/28/18 [History] Atorvastatin [Lipitor] 20 mg PO HS 10/28/18 [History] Hydrochlorothiazide [Hydrodiuril] 25 mg PO DAILY 10/28/18 [History] Insulin Glargine [Lantus] 12 unit SQ DAILY 10/28/18 [History] Levothyroxine Sodium [Synthroid] 25 mcg PO DAILY 10/28/18 [History] Linagliptin [Tradjenta] 5 mg PO DAILY 10/28/18 [History] Multivitamins, Thera [Multivitamin (formulary)] 1 tab PO DAILY 10/28/18 [History] Vitamin B Complex 1 cap PO DAILY 10/28/18 [History] amLODIPine [Norvasc] 5 mg PO BID 10/28/18 [History] glipiZIDE [Glucotrol] 5 mg PO AC-BID 10/28/18 [History] hydrALAZINE HCL 25 mg PO BID 10/28/18 [History] Follow up Appointment(s)/Referral(s): Vasquez Rivas DO [Doctor of Osteopathic Medicine] - 11/06/18 10:15 am Miquel Ortiz MD [Primary Care Provider] - 11/05/18 10:00 am Patient Instructions/Handouts: Pleural Effusion (DC) Activity/Diet/Wound Care/Special Instructions: Follow-up with Dr. Rivas about test results from thoracentesis. Discharge Disposition: HOME SELF-CARE
== END 2018-10-30 15:13 | disposition home or self-care (01) | DRG 187 ==
LOC: EC 09:45 → 4MS4W 11:53
PROVIDERS: ADMIT Hospitalist; ATTEND Hospitalist
PROC: 0W993ZZ Drainage of Right Pleural Cavity, Percutaneous Approach (ICD-10-PCS; principal; 2018-10-29)
DX: J90 Pleural effusion, not elsewhere classified (principal); E87.1 Hypo-osmolality and hyponatremia; J98.19 Other pulmonary collapse; E11.42 Type 2 diabetes mellitus with diabetic polyneuropathy; J44.9 Chronic obstructive pulmonary disease, unspecified; I70.1 Atherosclerosis of renal artery; E03.9 Hypothyroidism, unspecified; E78.5 Hyperlipidemia, unspecified; I10 Essential (primary) hypertension; I25.10 Atherosclerotic heart disease of native coronary artery without angina pectoris; K57.30 Diverticulosis of large intestine without perforation or abscess without bleeding; M19.91 Primary osteoarthritis, unspecified site; N26.1 Atrophy of kidney (terminal); Z79.4 Long term (current) use of insulin; Z79.82 Long term (current) use of aspirin; Z79.890 Hormone replacement therapy; Z79.899 Other long term (current) drug therapy; Z90.49 Acquired absence of other specified parts of digestive tract; Z95.5 Presence of coronary angioplasty implant and graft; Z87.891 Personal history of nicotine dependence; Z86.73 Personal history of transient ischemic attack (TIA), and cerebral infarction without residual deficits; Z86.74 Personal history of sudden cardiac arrest; Z82.49 Family history of ischemic heart disease and other diseases of the circulatory system
CPT/HCPCS: 36415; 71045; 71046; 71260; 74177; 76604; 80053; 82945; 83605; 83615; 84157; 85025; 87040; 87070; 87075; 87102; 87116; 87205; 87206; 87252; 87496; 87498; 87502; 87529; 87634; 87798; 88108; 88305; 89050; 93005; 93306; 94640; 94760; 96374; 96375; 99285

== ENCOUNTER 2018-11-12 08:45 | Day surgery (SDC) | payer MEDICARE, OTHER ==
[2018-11-12 09:29] VITALS: RESP 22; TEMP 98
[2018-11-12 09:31] LABS: Mean Platelet Volume 6.5; Platelet Count 444 k/uL (150-450)
[2018-11-12 09:37] LABS: INR 0.9 (<1.2); Prothrombin Time 9.9 sec (9.0-12.0)
[2018-11-12 10:45] VITALS: BP 159/71; PULSE 96
--- NOTE | 2018-11-12 10:57 | XR ---
EXAMINATION TYPE: XR chest 1V portable DATE OF EXAM: 11/12/2018 COMPARISON: 11/06/2018 HISTORY: Status post thoracentesis TECHNIQUE: Single frontal view of the chest is obtained. FINDINGS: Moderate to large right pleural effusion, appearing loculated is increased from the prior of 11/06/2018. Few air-fluid levels are again noted in the right lung apex. Right-sided airspace diseas e is progressed. Obscuration of the right cardiac border is unchanged and left cardiac border is unre markable. Left lung remains well aerated. No acute osseous pathology. IMPRESSION: Increasing moderate to large right pleural effusion with air-fluid levels in loculated c omponent in comparison to the prior of 11/06/2018.
[2018-11-12 14:00] LABS: Appearance,BF Cloudy; Color,BF Red
[2018-11-12 14:37] LABS: Nucleated Cells, Body Fluid 300 /uL; RBC, Body Fluid 169900 /uL
[2018-11-12 14:42] LABS: Mononuclear WBC,Body Fluid 87 %; Polynuclear WBC,Body Fluid 10 %; Total Cells Counted,Body Fluid 100
--- NOTE | 2018-11-12 15:24 | US ---
EXAMINATION TYPE: US thoracentesis DATE OF EXAM: 11/12/2018 COMPARISON: NONE HISTORY: Pleural effusion. FINDINGS: Maximal barrier technique was utilized. The skin overlying a suitable pocket of fluid was localized and the overlying skin prepped and draped. Lidocaine was used for local anesthesia. Ultras ound was used with sterile technique. A 5 Portuguese catheter over guide needle was advanced into the pl eural fluid collection using ultrasound guidance and the catheter advanced, needle removed. Approxim ately 0.4 liter(s) of dark red fluid was removed. Catheter was withdrawn and hemostasis achieved. T here is no immediate complication. The patient discharged in stable condition without complication. IMPRESSION: STATUS POST ULTRASOUND GUIDED THORACENTESIS, POST PROCEDURE CHEST X-RAY PENDING. THIS [place] OCEDURE WAS PERFORMED BY THE UNDERSIGNED. Specimen sent for laboratory analysis.
[2018-11-12 20:16] LABS: Total Protein, Body Fluid 3800 mg/dL
== END 2018-11-12 11:05 | disposition home or self-care (01) ==
LOC: RADPROMAIN 08:45
PROVIDERS: ATTEND Internal Medicine Critical Care Medicine
DX: J90 Pleural effusion, not elsewhere classified (principal)
CPT/HCPCS: 32555; 36415; 71045; 82945; 82947; 83615; 84157; 85049; 85610; 87070; 87075; 87116; 87205; 87206; 88108; 88305; 89050

== ENCOUNTER 2018-11-20 10:59 | Day surgery (SDC) | payer MEDICARE, OTHER ==
[2018-11-18 14:10] VITALS: BMI 29.5
[~2018-11-20 10:59] MED LIST: ALBUTEROL NEB (CONC) 2.5 MG/0.5 ML INHALATION ONE; ATROPINE SULFATE 0.4 MG/ML 1 ML VIAL IM ONE; LACTATED RINGERS 1,000 ML IV SCH; LIDOCAINE 1% 20 ML VIAL (10MG/ML) FOR IV START INTRADERMA PRN; LIDOCAINE 2% (PF) 20 MG/ML 5 ML VIAL INHALATION ONE; LIDOCAINE VISCOUS 300 MG/15 ML CUP MUCOUS MEM ONE; SODIUM CHLORIDE 0.9% 1,000 ML IV SCH
[2018-11-20 11:30] VITALS: RESP 18; TEMP 98.5
[2018-11-20 11:51] LABS: Glucose,Whole Blood 140 mg/dL (75-99)
[2018-11-20] MEDS ORDERED: PROPOFOL 10 MG/ML 20 ML VIAL IV ONE (12:04)
[2018-11-20] MEDS ORDERED: LIDOCAINE 2% INJ 20 MG/ML INTRATRACH ONE (12:18)
[2018-11-20 12:47] VITALS: BP 141/78; PULSE 86
--- NOTE | 2018-11-20 14:23 | PCN ---
PROCEDURE NOTE PROCEDURE: Bronchoscopy, airway examination, therapeutic lavage, BAL. JUMPBASTING MACHINE OPERATOR: Dr. Roman. There was informed consent. There was universal timeout. The patient's procedure took place in room #2 [facility]. Anesthesiologist Andrea Rivera CRNA provided unconscious sedation and general anesthesia. After the patient was adequately anesthetized and sedated, and being fully monitored, the bronchoscope was inserted through the right nostril. It passed through the right nasopharynx into the oropharynx. Then it passed into the hypopharynx. The hypopharyngeal structures including anterior commissure, true cords, false cords, arytenoids, piriform sinuses, right and left vallecula and epiglottis all appeared relatively normal. After topicalization, the bronchoscope was pushed through the glottic opening into the trachea. The patient had a clear-cut saber-sheath trachea. The tracheal kesha was sharp. The right and left mainstem were topicalized. Right upper lobe and its 3 segments, the right lower lobe and its 5 segments appeared normal. The entrance into the right middle lobe was quite narrowed. The patient is at high risk for right middle lobe syndrome. I am not sure if this was from the pleural effusion on the right side or from extrinsic compression. Nonetheless, we were able to enter into the right middle lobe. The segments looked normal. There was no dominant mass or tumor. The airways looked relatively clean. The mucosa appeared relatively normal although there was mild erythema. On the left side, the left upper lobe proper and its 2 segments, the lingula and its 2 segments and the left lower lobe and its 4 segments all appeared normal. There were minimal secretions. Again, no dominant mass or tumor. The bronchoscope was wedged into the distal right lung. It sat right above the right middle lobe and right lower lobe. The BAL took place. The patient tolerated the procedure well; 30 mL of fluid was collected. The bronchoscope was then withdrawn. There was no bleeding. The patient will be recovered. The patient tolerated the procedure well. MMODL / IJN: [id number] /
[2018-11-20 16:47] LABS: Appearance,BF Cloudy; Color,BF Red
[2018-11-20 17:30] LABS: RBC, Body Fluid 57300 /uL
[2018-11-20 17:32] LABS: Nucleated Cells, Body Fluid 200 /uL
[2018-11-20 18:35] LABS: Mononuclear WBC,Body Fluid 7 %; Polynuclear WBC,Body Fluid 93 %; Total Cells Counted,Body Fluid 100
== END 2018-11-20 13:11 | disposition home or self-care (01) ==
LOC: ORWHC2ENDO 10:59
PROVIDERS: ATTEND Internal Medicine Critical Care Medicine
DX: J90 Pleural effusion, not elsewhere classified (principal); J44.1 Chronic obstructive pulmonary disease with (acute) exacerbation; I10 Essential (primary) hypertension; E03.9 Hypothyroidism, unspecified; I25.10 Atherosclerotic heart disease of native coronary artery without angina pectoris; M19.90 Unspecified osteoarthritis, unspecified site; K57.90 Diverticulosis of intestine, part unspecified, without perforation or abscess without bleeding; E11.9 Type 2 diabetes mellitus without complications; E78.5 Hyperlipidemia, unspecified; I27.20 Pulmonary hypertension, unspecified; Z79.82 Long term (current) use of aspirin; Z79.890 Hormone replacement therapy; Z79.4 Long term (current) use of insulin; Z79.899 Other long term (current) drug therapy; Z99.81 Dependence on supplemental oxygen; Z95.820 Peripheral vascular angioplasty status with implants and grafts; Z95.5 Presence of coronary angioplasty implant and graft; Z90.49 Acquired absence of other specified parts of digestive tract; Z98.890 Other specified postprocedural states; Z87.891 Personal history of nicotine dependence; Z86.73 Personal history of transient ischemic attack (TIA), and cerebral infarction without residual deficits; Z81.1 Family history of alcohol abuse and dependence
CPT/HCPCS: 94640; 87798 ×3; 87496; 87498; 87529 ×2; 88108; 88305; 89050; 87252; 87502; 87634; 87070; 87205; 87116; 87102; 87206; 31624; J2001 ×2; J0461; J2704

== ENCOUNTER → 2018-12-02 | Outpatient (CLI) | payer MEDICARE, OTHER ==
--- NOTE | 2018-12-02 13:25 | XR ---
EXAMINATION TYPE: XR chest 2V DATE OF EXAM: 12/02/2018 COMPARISON: 11/12/2018 HISTORY: Shortness of breath TECHNIQUE: Frontal and lateral views of the chest are obtained. FINDINGS: Scattered senescent parenchymal changes noted. Hyperinflation compatible with COPD. Persistent right-sided pleural effusion with underlying mass, infiltrate and/or atelectasis. Left carlos alberto g is clear. No significant change seen. Heart size is stable. Mediastinal structures are stable and grossly unremarkable. No evidence for hilar prominence. Degenerative changes dorsal spine. IMPRESSION: 1. Persistent right-sided pleural effusion with underlying mass, infiltrate and/or atelectasis. Left lung is clear. No significant change seen.
== END | disposition home or self-care (01) ==
LOC: RADXRMAIN 12:26
PROVIDERS: ATTEND Thoracic Surgery (Cardiothoracic Vascular Surgery)
DX: J90 Pleural effusion, not elsewhere classified (principal)
CPT/HCPCS: 71046

== ENCOUNTER → 2018-12-04 | Outpatient (CLI) | payer MEDICARE, OTHER ==
[2018-12-04 13:39] LABS: INR 0.9 (<1.2); Partial Thromboplastin Time 28.8 sec (22.0-30.0); Prothrombin Time 10.2 sec (9.0-12.0)
[2018-12-05 01:58] LABS: African American GFR (CKD) 54.2 (60.0-200.0); Anion Gap 11.2 mmol/L (4.00-12.00); Carbon Dioxide 27.8 mmol/L (21.6-31.8); Non-African American GFR(CKD) 46.8 (60.0-200.0); Potassium 4.1 mmol/L (3.5-5.5)
== END | disposition home or self-care (01) ==
LOC: LABWHC1 12:21
PROVIDERS: ATTEND Thoracic Surgery (Cardiothoracic Vascular Surgery)
DX: D68.9 Coagulation defect, unspecified (principal); Z01.818 Encounter for other preprocedural examination; Z01.812 Encounter for preprocedural laboratory examination; J90 Pleural effusion, not elsewhere classified; R58 Hemorrhage, not elsewhere classified; E86.0 Dehydration; R06.00 Dyspnea, unspecified
CPT/HCPCS: 36415; 80051; 82565; 82947; 84520; 85610; 85730; 93005

== ENCOUNTER 2018-12-11 09:10 | Day surgery (SDC) | payer MEDICARE, OTHER ==
[2018-12-08 10:06] VITALS: BMI 29.2
[~2018-12-11 09:10] MED LIST changes: -ALBUTEROL NEB (CONC) 2.5 MG/0.5 ML INHALATION ONE; -ATROPINE SULFATE 0.4 MG/ML 1 ML VIAL IM ONE; +HYDROmorphone 0.5 MG/0.5 ML SYRINGE IVP PRN; -LIDOCAINE 1% 20 ML VIAL (10MG/ML) FOR IV START INTRADERMA PRN; -LIDOCAINE 2% (PF) 20 MG/ML 5 ML VIAL INHALATION ONE; -LIDOCAINE VISCOUS 300 MG/15 ML CUP MUCOUS MEM ONE; -SODIUM CHLORIDE 0.9% 1,000 ML IV SCH
[2018-12-11 09:33] VITALS: RESP 18; TEMP 98.2
[2018-12-11] MEDS ORDERED: LIDOCAINE 1% 20 ML VIAL (10MG/ML) FOR IV START INTRADERMA ONE (09:56)
[2018-12-11] MEDS ORDERED: ONDANSETRON 4 MG/2 ML VIAL IVP ONE (09:58)
[2018-12-11 10:01] LABS: Glucose,Whole Blood 123 mg/dL (75-99)
[2018-12-11] MEDS ORDERED: LIDOCAINE 1% INJ 10MG/ML (20 ML MDV) SQ ONE ×3 (10:23→11:18)
[2018-12-11] MEDS ORDERED: PROPOFOL 10 MG/ML 20 ML VIAL IV ONE (10:48)
[2018-12-11] MEDS ORDERED: LIDOCAINE 1% INJ 10MG/ML (20 ML MDV) ONE (10:48)
[2018-12-11] MEDS ORDERED: MIDAZOLAM 2 MG/2 ML VIAL ONE (10:48)
[2018-12-11] MEDS ORDERED: fentaNYL (PF) 50 MCG/ML 2 ML AMP ONE (10:48)
--- NOTE | 2018-12-11 11:52 | P.OP ---
Date of Procedure: 12/11/18 Preoperative Diagnosis: Recurrent right pleural effusion Postoperative Diagnosis: Same Procedure(s) Performed: Right Pleurx catheter placement with fluoroscopy Implants: Pleurx catheter Anesthesia: MAC Surgeon: Peter Guaman Estimated Blood Loss (ml): 3 IV fluids (ml): 300 Pathology: other (Right pleural fluid for cytology) Condition: stable Indications for Procedure: 83-year-old male with symptomatic right pleural effusion. This was initially tapped by Dr. Laird for 2 L with good symptomatic improvement. Was again tapped this time by interventional radiology. They are unable to draw 350 mL and the patient remained severely short of breath. Patient was referred for evaluation and it was felt that the best initial treatment in this elderly gentleman should be placement of a Pleurx catheter. Operative Findings: 900 mL of serous fluid was drained. The majority of this was sent for cytology. Description of Procedure: The patient was brought to the operating room and placed supine on the fluoroscopy table. The right chest was sterilely prepped and draped. Area in the anterior axillary line above the sixth rib was anesthetized with 1% lidocaine and the pleura was punctured here with a 18-gauge needle. Guidewire was threaded into the right chest under fluoroscopic guidance. One percent lidocaine was used to anesthetize an area just below the costal margin and a three-quarter and centimeter incision was made here. The site of the guidewire was enlarged to 1.2 cm. Pleurx catheter was tunneled from the costal margin to the guidewire and the cuff was positioned just under the skin at the costal margin. Introducer and dilator were placed over the guidewire and under fluoroscopic guidance pushed into the pleural cavity. Dilator and guidewire were removed and through the introducer sheath the Pleurx catheter was placed into the right pleural space. Introducer sheath was then split and removed. Fluoroscopy demonstrated good placement of the catheter in the right pleural space. The catheter was connected to suction in the pleural fluid drained. The entry site was closed with a 4-0 Vicryl suture. This was then dressed with some skin glue and a Band-Aid. Dry sterile dressings were applied applied at the exit site. Catheter was capped. Tegaderm dressing was applied. Patient was transferred to recovery in stable condition.
--- NOTE | 2018-12-11 12:45 | XR ---
EXAMINATION TYPE: XR chest 1V portable DATE OF EXAM: 12/11/2018 Comparison: 12/02/2018 Clinical History: 83-year-old male post Pleurx cath placement Findings: Heart upper limits of normal in size. The splenic arch calcifications. Mild hyperinflation. New right basilar loculated appearing pneumotho rax measuring approximately 3.4 cm. Pleurx catheter is in place with corresponding subcutaneous emphy sema. Residual focal areas of pleural parenchymal right mid and lower lung density. Impression: Right Pleurx catheter now in place with a 3.4 cm right basilar, loculated pneumothorax. Underlying pl eural effusion appears to have diminished though prominent residual pleural-parenchymal opacities rem ain in the right mid and lower lung.
[2018-12-11 13:12] LABS: Glucose,Whole Blood 130 mg/dL (75-99)
[2018-12-11 13:20] VITALS: BP 138/77; PULSE 90
--- NOTE | 2018-12-11 14:37 | FL ---
EXAMINATION TYPE: FL fluoroscopy <1hr DATE OF EXAM: 12/11/2018 FLUOROSCOPY Fluoroscopy time of 41 seconds was used during right Pleurx catheter insertion. 1 image/s document/s the procedure.
== END 2018-12-11 13:36 | disposition home health service (06) ==
LOC: OR 09:10
PROVIDERS: ATTEND Thoracic Surgery (Cardiothoracic Vascular Surgery)
DX: J90 Pleural effusion, not elsewhere classified (principal); E11.9 Type 2 diabetes mellitus without complications; I25.10 Atherosclerotic heart disease of native coronary artery without angina pectoris; I11.9 Hypertensive heart disease without heart failure; I27.20 Pulmonary hypertension, unspecified; K57.90 Diverticulosis of intestine, part unspecified, without perforation or abscess without bleeding; Z79.82 Long term (current) use of aspirin; Z79.4 Long term (current) use of insulin; Z79.899 Other long term (current) drug therapy; Z79.890 Hormone replacement therapy; Z99.81 Dependence on supplemental oxygen; Z91.011 Allergy to milk products; Z90.49 Acquired absence of other specified parts of digestive tract; Z98.890 Other specified postprocedural states; Z98.42 Cataract extraction status, left eye; Z98.41 Cataract extraction status, right eye; Z95.5 Presence of coronary angioplasty implant and graft; Z95.820 Peripheral vascular angioplasty status with implants and grafts; Z87.891 Personal history of nicotine dependence; Z86.73 Personal history of transient ischemic attack (TIA), and cerebral infarction without residual deficits
CPT/HCPCS: 32550; 88108; 88305; 75989; 71045; J2250; J0690; J2405; J2001; J3010; J2704; 76000

== ENCOUNTER → 2018-12-22 | Outpatient (CLI) | payer MEDICARE, OTHER ==
[2018-12-22 19:58] LABS: Total Volume 24 Hour,Urine 1500 mL
[2018-12-22 20:10] LABS: Anti-DNA, DS unit <1.0 IU/mL; DNA Double-Stranded NEGATIVE (NEGATIVE)
[2018-12-22 21:41] LABS: Total Protein,Urine Random 41.1 mg/dL (0.0-13.5)
[2018-12-23 11:28] LABS: Free Kappa Lt Chain Qnt, Serum 7.56 mg/dL (0.33-1.94)
[2018-12-23 13:29] LABS: C-ANCA <1:20 Titer (<1:20)
== END | disposition home or self-care (01) ==
LOC: LABWHC1 12:12
PROVIDERS: ATTEND Nurse Practitioner Family
DX: R80.9 Proteinuria, unspecified (principal)
CPT/HCPCS: 36415; 81050; 82570; 83516; 83883; 84156; 84166; 86038; 86160; 86162; 86225; 86255; 86334

== ENCOUNTER → 2019-01-07 | Outpatient (CLI) | payer MEDICARE, OTHER ==
[2019-01-07 07:37] LABS: MCH 27.4 pg (25.0-35.0); MCHC 31.5 g/dL (31.0-37.0); MCV 87.1 fL (80.0-100.0); Platelet Count 591 k/uL (150-450); RBC 4.36 m/uL (4.30-5.90); RDW 14.7 % (11.5-15.5); WBC 11.7 k/uL (3.8-10.6)
[2019-01-07 11:48] LABS: % Iron Saturation 9.77 (15.00-50.00); African American GFR (CKD) 59.3 (60.0-200.0); Albumin 4.1 g/dL (3.80-4.90); Albumin/Globulin Ratio 1.46 (1.60-3.17); Anion Gap 8.9 mmol/L (4.00-12.00); BUN/Creat Ratio 13.08 Ratio (12.00-20.00); Calcium 9.2 mg/dL (8.7-10.3); Carbon Dioxide 31.1 mmol/L (21.6-31.8); Ferritin 980.5 ng/mL (22.0-322.0); Globulin 2.8 g/dL (1.6-3.3); Magnesium 1.7 mg/dL (1.5-2.4); Phosphorus 3.1 mg/dL (2.4-5.1); Potassium 4.7 mmol/L (3.5-5.5); Total Bilirubin 0.4 mg/dL (0.3-1.2); Total Protein 6.9 g/dL (6.2-8.2); Uric Acid 4.9 mg/dL (3.7-8.7)
[2019-01-07 14:06] LABS: Hemoglobin A1C 8.5 % (4.0-6.0)
[2019-01-07 15:14] LABS: Appearance,Urine Clear (Clear); Bacteria,Urine Rare /hpf; Bilirubin,Urine Negative (Negative); Blood,Urine Negative (Negative); Color,Urine Yellow; Glucose,Urine (UA) Negative (Negative); Hyaline Casts,Urine 1 /lpf (0-2); Ketones,Urine Negative (Negative); Leukocyte Esterase,Urine Negative (Negative); Mucus,Urine Rare /hpf; Nitrite,Urine Negative (Negative); Protein,Urine 1+ (Negative); RBC,Urine 1 /hpf (0-5); Specific Gravity,Urine 1.015 (1.001-1.035); Squamous Epithelial Cell,Urine <1 /hpf (0-4); Urobilinogen,Urine <2.0 mg/dL (<2.0); WBC,Urine <1 /hpf (0-5)
== END | disposition home or self-care (01) ==
LOC: LABWHC1 06:46
PROVIDERS: ATTEND Nurse Practitioner Family
DX: N18.3 Chronic kidney disease, stage 3 (moderate) (principal); E11.22 Type 2 diabetes mellitus with diabetic chronic kidney disease; D63.1 Anemia in chronic kidney disease; N39.0 Urinary tract infection, site not specified; N25.81 Secondary hyperparathyroidism of renal origin; E55.0 Rickets, active; M10.9 Gout, unspecified
CPT/HCPCS: 36415; 80053; 81001; 82306; 82728; 83036; 83540; 83550; 83735; 83970; 84100; 84550; 85027

== ENCOUNTER 2019-01-08 08:12 | Day surgery (SDC) | payer MEDICARE, OTHER ==
[2019-01-06 11:45] VITALS: BMI 27.4
[~2019-01-08 08:12] MED LIST changes: +ONDANSETRON 4 MG/2 ML VIAL IVP PRN
[2019-01-08 08:40] VITALS: TEMP 98.2
[2019-01-08] MEDS ORDERED: LIDOCAINE 1% 20 ML VIAL (10MG/ML) FOR IV START INTRADERMA ONE (09:00)
[2019-01-08] MEDS ORDERED: LACTATED RINGERS 1,000 ML IV ONE (09:00)
[2019-01-08 09:06] LABS: Glucose,Whole Blood 137 mg/dL (75-99)
[2019-01-08] MEDS ORDERED: LIDOCAINE 1% INJ 10MG/ML (20 ML MDV) SQ ONE (09:06)
[2019-01-08] MEDS ORDERED: PROPOFOL 10 MG/ML 20 ML VIAL IV ONE (09:30)
[2019-01-08] MEDS ORDERED: MIDAZOLAM 2 MG/2 ML VIAL ONE (09:30)
[2019-01-08] MEDS ORDERED: fentaNYL (PF) 50 MCG/ML 2 ML AMP ONE (09:30)
--- NOTE | 2019-01-08 10:07 | P.OP ---
Date of Procedure: 01/08/19 Preoperative Diagnosis: History of recurrent right pleural effusion, status post right Pleurx placement and treatment. Postoperative Diagnosis: Same Procedure(s) Performed: Removal of right Pleurx catheter Anesthesia: MAC Surgeon: Peter Guaman Estimated Blood Loss (ml): 2 IV fluids (ml): 160 Pathology: none sent Condition: stable Disposition: PACU Indications for Procedure: 83-year-old male with recurrent right pleural effusion underwent right Pleurx catheter. Patient drainage has proceeded well and over the last 2 weeks he has had minimal drainage from the catheter and therefore removal of the catheter was recommended. Operative Findings: Pleurx catheter was exiting the skin without any evidence of inflammation or infection. The subcutaneous cuff was well incorporated into the subcutaneous tissues. Description of Procedure: The right Pleurx catheter at its exit site were sterilely prepped and draped. 1% lidocaine was injected into the skin and subcutaneous tissues at the exit site and around the subcutaneous cuff. Gentle blunt dissection with a hemostat was performed up along the catheter and along the subcutaneous cuff freeing it from its investing tissues. The catheter was then gently removed from the chest. The skin was approximated with direct finger pressure and skin glue was applied. Once this was dried a Band-Aid dressing was applied. Plan - Discharge Summary Discharge Rx Participant: Yes New Discharge Prescriptions: Continue Vitamin B Complex 1 cap PO DAILY Multivitamins, Thera [Multivitamin (formulary)] 1 tab PO DAILY Linagliptin [Tradjenta] 5 mg PO DAILY Insulin Glargine [Lantus] 16 unit SQ HS Atorvastatin [Lipitor] 20 mg PO HS Aspirin EC [Ecotrin Low Dose] 81 mg PO DAILY hydrALAZINE HCL 25 mg PO BID glipiZIDE [Glucotrol] 5 mg PO AC-BID amLODIPine [Norvasc] 5 mg PO BID Hydrochlorothiazide [Hydrodiuril] 25 mg PO DAILY Levothyroxine Sodium [Synthroid] 25 mcg PO DAILY Discharge Medication List Aspirin EC [Ecotrin Low Dose] 81 mg PO DAILY 10/28/18 [History] Atorvastatin [Lipitor] 20 mg PO HS 10/28/18 [History] Hydrochlorothiazide [Hydrodiuril] 25 mg PO DAILY 10/28/18 [History] Insulin Glargine [Lantus] 16 unit SQ HS 10/28/18 [History] Levothyroxine Sodium [Synthroid] 25 mcg PO DAILY 10/28/18 [History] Linagliptin [Tradjenta] 5 mg PO DAILY 10/28/18 [History] Multivitamins, Thera [Multivitamin (formulary)] 1 tab PO DAILY 10/28/18 [History] Vitamin B Complex 1 cap PO DAILY 10/28/18 [History] amLODIPine [Norvasc] 5 mg PO BID 10/28/18 [History] glipiZIDE [Glucotrol] 5 mg PO AC-BID 10/28/18 [History] hydrALAZINE HCL 25 mg PO BID 10/28/18 [History]
[2019-01-08 10:29] LABS: Glucose,Whole Blood 131 mg/dL (75-99)
[2019-01-08 11:24] VITALS: BP 145/80; PULSE 78; RESP 20
== END 2019-01-08 11:14 | disposition home or self-care (01) ==
LOC: OR 08:12
PROVIDERS: ATTEND Thoracic Surgery (Cardiothoracic Vascular Surgery)
DX: Z46.82 Encounter for fitting and adjustment of non-vascular catheter (principal); J90 Pleural effusion, not elsewhere classified; I10 Essential (primary) hypertension; I25.10 Atherosclerotic heart disease of native coronary artery without angina pectoris; E73.9 Lactose intolerance, unspecified; E78.5 Hyperlipidemia, unspecified; J44.9 Chronic obstructive pulmonary disease, unspecified; I70.1 Atherosclerosis of renal artery; E11.42 Type 2 diabetes mellitus with diabetic polyneuropathy; E07.9 Disorder of thyroid, unspecified; Z87.891 Personal history of nicotine dependence; Z95.5 Presence of coronary angioplasty implant and graft; Z95.828 Presence of other vascular implants and grafts; Z79.4 Long term (current) use of insulin; Z79.890 Hormone replacement therapy; Z79.82 Long term (current) use of aspirin; Z79.899 Other long term (current) drug therapy; Z90.49 Acquired absence of other specified parts of digestive tract; Z98.41 Cataract extraction status, right eye; Z98.42 Cataract extraction status, left eye
CPT/HCPCS: 32552; J2250; J2405; J2001; J3010; J2704

== ENCOUNTER → 2019-01-12 | Outpatient (CLI) | payer MEDICARE, OTHER ==
--- NOTE | 2019-01-12 14:33 | CT ---
EXAMINATION TYPE: CT angio chest DATE OF EXAM: 01/12/2019 COMPARISON: October 29, 2018 HISTORY: Increasing SOB CT DLP: 339.1 mGycm CONTRAST: CT chest with contrast and 3D reconstruction with MIP imaging is performed with IV Contrast, patient injected with 60 mL of Isovue 370. Contrast-enhanced CT of the chest was performed through the course of the pulmonary arteries with carlos alberto g and mediastinal window settings submitted. 3D reconstruction with MIP imaging was also performed. PULMONARY ARTERIES: The pulmonary arteries and their major tributaries are patent. I do not see cam dence for sizable filling defect to suggest pulmonary embolic process. LUNGS: Large right-sided pleural effusion is redemonstrated with maximal AP dimension of 9 cm. Right lower lobe volume loss persists. Underlying infiltrate or mass is difficult to exclude. Right-sided p leural thickening noted. MEDIASTINUM: Thoracic aorta is of normal caliber,however, evaluation is limited given timing of the contrast bolus. If there is concern for thoracic aortic pathology consider HEATHER. Correlate clinicall y . The heart is enlarged. No evidence for mediastinal mass. No mediastinal lymph nodes greater kandice n 1cm. Calcified hilar mediastinal lymph nodes identified. Mild scattered emphysematous changes. Mode rate fixed hiatal hernia. HILAR STRUCTURES: No evidence for mass. No hilar lymph nodes greater than 1 cm. UPPER ABDOMEN: Splenic and hepatic calcifications noted. Atrophic changes left kidney. Renal cystic c hange right kidney. IMPRESSION: 1. No evidence for Pulmonary embolism at this time.
== END ==
LOC: RADCTMAIN 13:56
PROVIDERS: ATTEND Internal Medicine Critical Care Medicine
DX: R06.02 Shortness of breath (principal)
CPT/HCPCS: 71275; Q9967

== ENCOUNTER → 2019-01-13 | Outpatient (CLI) | payer MEDICARE, OTHER ==
--- NOTE | 2019-01-13 08:22 | US ---
EXAMINATION TYPE: US chest DATE OF EXAM: 01/13/2019 COMPARISON: CT 01/12/19, US 11/12/18 CLINICAL HISTORY: J90 Pleural effusion-right side. TECHNIQUE: Targeted ultrasound of the posterior lower right hemithorax EXAM MEASUREMENTS: Right Pleural Effusion pocket size: 7.0 cm Right skin surface to fluid distance: 1.4 cm Left Pleural Effusion pocket size: No fluid seen cm Right side marked for possible thoracentesis outside the dept. Pulmonologists are able to review the images in the patient?s EMR. IMPRESSIONS: 1. Right pleural effusion
== END | disposition home or self-care (01) ==
LOC: RADUSWWP 07:23
PROVIDERS: ATTEND Internal Medicine Critical Care Medicine
DX: J90 Pleural effusion, not elsewhere classified (principal)
CPT/HCPCS: 76604

== ENCOUNTER 2019-01-22 08:48 | Day surgery (SDC) | payer MEDICARE, OTHER ==
[2019-01-22 09:35] LABS: Mean Platelet Volume 6.3; Platelet Count 561 k/uL (150-450)
[2019-01-22 09:38] VITALS: TEMP 97.6
[2019-01-22 09:40] LABS: Prothrombin Time 10.7 sec (9.0-12.0)
[2019-01-22 10:35] VITALS: BP 150/72; PULSE 90; RESP 20
--- NOTE | 2019-01-22 10:59 | XR ---
EXAMINATION TYPE: XR chest 1V DATE OF EXAM: 01/22/2019 COMPARISON: 12/11/2018 HISTORY: 83-year-old male postthoracentesis TECHNIQUE: Single frontal view of the chest is obtained. FINDINGS: Heart remains mildly enlarged. Residual moderate right pleural effusion with a patchy opacity through out the mid and lower right lung. No appreciable pneumothorax. IMPRESSION: Residual moderate right pleural effusion with adjacent atelectasis and/or consolidation. No appreciab le pneumothorax.
--- NOTE | 2019-01-22 11:53 | US ---
EXAMINATION TYPE: US thoracentesis DATE OF EXAM: 01/22/2019 COMPARISON: NONE HISTORY: Pleural effusion. FINDINGS: Maximal barrier technique was utilized. The skin overlying a suitable pocket of fluid was localized and the overlying skin prepped and draped. Lidocaine was used for local anesthesia. Ultras ound was used with sterile technique. A 5 Portuguese catheter over guide needle was advanced into the pl eural fluid collection using ultrasound guidance the catheter advanced, needle removed. Approximatel y 0.6 liter(s) of serous fluid was removed. Catheter was withdrawn and hemostasis achieved. There i s no immediate complication. The patient discharged in stable condition without complication. IMPRESSION: STATUS POST ULTRASOUND GUIDED THORACENTESIS, POST PROCEDURE CHEST X-RAY PENDING. THIS [place] OCEDURE WAS PERFORMED BY THE UNDERSIGNED. Specimen sent for laboratory analysis.
[2019-01-22 15:33] LABS: Appearance,BF Hazy; Nucleated Cells, Body Fluid 140 /uL; RBC, Body Fluid 4550 /uL
[2019-01-22 15:39] LABS: Mononuclear WBC,Body Fluid 94 %; Polynuclear WBC,Body Fluid 6 %; Total Cells Counted,Body Fluid 100
[2019-01-22 20:53] LABS: Glucose, BF Source Pleural Fluid; Glucose, Body Fluid 136 mg/dL; LDH, Body Fluid Source Pleural Fluid; Total Protein, Body Fluid 3900 mg/dL
== END 2019-01-22 11:10 | disposition home or self-care (01) ==
LOC: RADPROMAIN 08:48
PROVIDERS: ATTEND Internal Medicine Critical Care Medicine
DX: J90 Pleural effusion, not elsewhere classified (principal); R84.8 Other abnormal findings in specimens from respiratory organs and thorax; R91.8 Other nonspecific abnormal finding of lung field
CPT/HCPCS: 32555; 36415; 71045; 82945; 83615; 84157; 85049; 85610; 87070; 87075; 87102; 87205; 88108; 88305; 88341; 88342; 89050

== ENCOUNTER 2019-02-02 09:16 | Inpatient (IN) | payer MEDICARE, OTHER ==
--- NOTE | 2019-02-02 09:53 | ED ---
General Adult HPI - General Chief complaint: Shortness of Breath Stated complaint: SOB Time Seen by Provider: 02/02/19 09:20 Source: patient, RN notes reviewed, old records reviewed Mode of arrival: wheelchair - History of Present Illness Initial comments: This is an 84-year-old male with past medical history significant for COPD and right-sided pleural effusion. Patient comes in today because he states he had a thoracentesis about 10 days ago and after about 4-5 days he started having difficulty breathing is gotten progressively worse. Patient states today it was so bad he couldn't do anything because he was short of breath with any exertion. Patient denies any chest pain or palpitations. Patient denies any fever chills or cough. Patient denies any abdominal pain patient's nausea vomiting diarrhea per patient denies headache patient denies any lightheadedness or dizziness. Patient denies any swelling to the legs or calf tenderness. - Related Data Home Medications Medication Instructions Recorded Confirmed Aspirin EC [Ecotrin Low Dose] 81 mg PO DAILY 10/28/18 01/22/19 Atorvastatin [Lipitor] 20 mg PO HS 10/28/18 01/22/19 Hydrochlorothiazide [Hydrodiuril] 25 mg PO DAILY 10/28/18 01/22/19 Insulin Glargine [Lantus] 22 unit SQ HS 10/28/18 01/22/19 Levothyroxine Sodium [Synthroid] 25 mcg PO DAILY 10/28/18 01/22/19 Linagliptin [Tradjenta] 5 mg PO DAILY 10/28/18 01/22/19 Multivitamins, Thera [Multivitamin 1 tab PO DAILY 10/28/18 01/22/19 (formulary)] Vitamin B Complex 1 cap PO DAILY 10/28/18 01/22/19 amLODIPine [Norvasc] 5 mg PO BID 10/28/18 01/22/19 glipiZIDE [Glucotrol] 5 mg PO AC-BID 10/28/18 01/22/19 hydrALAZINE HCL 25 mg PO BID 10/28/18 01/22/19 Allergies Allergy/AdvReac Type Severity Reaction Status Date / Time No Known Allergies Allergy Verified 01/22/19 09:27 Review of Systems ROS Statement: Those systems with pertinent positive or pertinent negative responses have been documented in the HPI. ROS Other: All systems not noted in ROS Statement are negative. Past Medical History Past Medical History: COPD, Diabetes Mellitus, Hypertension, Thyroid Disorder Additional Past Medical History / Comment(s): Wears O@ @ 4L via [place], neuropathy bilateral arms/hands/legs and feet, TIA in 2009, poor circulation, renal artery stenosis with stent, diverticular dx. "Dr Guaman put tube in right chest and then took it out last week Jan 2019" History of Any Multi-Drug Resistant Organisms: None Reported Past Surgical History: Cholecystectomy, Heart Catheterization With Stent, Orthopedic Surgery Additional Past Surgical History / Comment(s): Bronchoscopy, Carpal Tunnel, renal stent, rotator cuff, cabrera cataracts, thorocentesis, insertion of PleurX in 2018. "doctors can't figure out why fluid is building up in chest" Additional Past Anesthesia/Blood Transfusion Reaction / Comment(s): Pt states he had a cardiac arrest during PCI/stent procedure 2006. Has had other surgical procedures with anesthesia since then with no problems at all. States he think it was all heart issues and nothing to do with the anesthesia. Date of Last Stent Placement:: 04/10/08 Past Psychological History: No Psychological Hx Reported Smoking Status: Former smoker Past Alcohol Use History: Occasional Past Drug Use History: None Reported - Past Family History Father Family Medical History: Vascular Disorder Additional Family Medical History / Comment(s): Father of arterial sclerosis at the age of 56yrs. Mother Additional Family Medical History / Comment(s): Mother was a heavy drinker. General Exam - General Exam Comments Initial Comments: GENERAL: Patient is well-developed and well-nourished. Patient is nontoxic and well- hydrated and is in mild distress. ENT: Neck is soft and supple. No significant lymphadenopathy is noted. Oropharynx is clear. Moist mucous membranes. Neck has full range of motion without elici ting any pain. EYES: The sclera were anicteric and conjunctiva were pink and moist. Extraocular m ovements were intact and pupils were equal round and reactive to light. Eyelids were unremarkable. PULMONARY: Patient has diminished breath sounds right base CARDIOVASCULAR: There is a regular rate and rhythm without any murmurs gallops or rubs. ABDOMEN: Soft and nontender with normal bowel sounds. SKIN: Skin is clear with no lesions or rashes and otherwise unremarkable. NEUROLOGIC: Patient is alert and oriented x3. Cranial nerves II through XII are grossly intact. Motor and sensory are also intact. Normal speech, volume and content. Symmetrical smile. MUSCULOSKELETAL: Normal extremities with adequate strength and full range of motion. LYMPHATICS: No significant lymphadenopathy is noted PSYCHIATRIC: Normal psychiatric evaluation. Course Vital Signs 02/02/19 09:26 Temperature 97.6 F Pulse Rate 99 Respiratory 28 H Rate Blood Pressure 140/74 O2 Sat by Pulse 87 L Oximetry Medical Decision Making - Medical Decision Making EKG shows normal sinus rhythm at 89 bpm VT interval 150 QRS is 92 QT interval 392 QTC is 476. Patient's EKG shows no ST segment elevation or depression or T wave abnormalities are noted. X-ray shows a large right-sided pleural effusion I spoke with Dr. Lewis he agreed to admit the patient admitted the patient wrote admitting orders. - Lab Data Result diagrams: 02/02/19 10:43 02/02/19 10:43 Lab Results 02/02/19 02/02/19 02/02/19 Range/Units 10:43 10:43 10:43 WBC 10.5 (3.8-10.6) k/uL RBC 4.03 L (4.30-5.90) m/uL Hgb 11.2 L (13.0-17.5) gm/dL Hct 34.1 L (39.0-53.0) % MCV 84.5 (80.0-100.0) fL MCH 27.9 (25.0-35.0) pg MCHC 33.0 (31.0-37.0) g/dL RDW 15.1 (11.5-15.5) % Plt Count 596 H (150-450) k/uL Neutrophils % 81 % Lymphocytes % 8 % Monocytes % 8 % Eosinophils % 1 % Basophils % 0 % Neutrophils # 8.5 H (1.3-7.7) k/uL Lymphocytes # 0.8 L (1.0-4.8) k/uL Monocytes # 0.8 (0-1.0) k/uL Eosinophils # 0.1 (0-0.7) k/uL Basophils # 0.0 (0-0.2) k/uL Hypochromasia Slight PT 10.4 (9.0-12.0) sec INR 1.0 (<1.2) APTT 29.0 (22.0-30.0) sec Sodium 135 L (137-145) mmol/L Potassium 4.0 (3.5-5.1) mmol/L Chloride 93 L (98-107) mmol/L Carbon Dioxide 30 (22-30) mmol/L Anion Gap 12 mmol/L BUN 24 H (9-20) mg/dL Creatinine 1.29 H (0.66-1.25) mg/dL Est GFR (CKD-EPI)AfAm 59 (>60 ml/min/1.73 sqM) Est GFR (CKD-EPI)NonAf 51 (>60 ml/min/1.73 sqM) Glucose 249 H (74-99) mg/dL Calcium 9.4 (8.4-10.2) mg/dL Magnesium 1.8 (1.6-2.3) mg/dL Total Bilirubin 0.4 (0.2-1.3) mg/dL AST 22 (17-59) U/L ALT 24 (21-72) U/L Alkaline Phosphatase 85 (38-126) U/L Troponin I (0.000-0.034) ng/mL Total Protein 7.0 (6.3-8.2) g/dL Albumin 3.4 L (3.5-5.0) g/dL 02/02/19 Range/Units 10:43 WBC (3.8-10.6) k/uL RBC (4.30-5.90) m/uL Hgb (13.0-17.5) gm/dL Hct (39.0-53.0) % MCV (80.0-100.0) fL MCH (25.0-35.0) pg MCHC (31.0-37.0) g/dL RDW (11.5-15.5) % Plt Count (150-450) k/uL Neutrophils % % Lymphocytes % % Monocytes % % Eosinophils % % Basophils % % Neutrophils # (1.3-7.7) k/uL Lymphocytes # (1.0-4.8) k/uL Monocytes # (0-1.0) k/uL Eosinophils # (0-0.7) k/uL Basophils # (0-0.2) k/uL Hypochromasia PT (9.0-12.0) sec INR (<1.2) APTT (22.0-30.0) sec Sodium (137-145) mmol/L Potassium (3.5-5.1) mmol/L Chloride (98-107) mmol/L Carbon Dioxide (22-30) mmol/L Anion Gap mmol/L BUN (9-20) mg/dL Creatinine (0.66-1.25) mg/dL Est GFR (CKD-EPI)AfAm (>60 ml/min/1.73 sqM) Est GFR (CKD-EPI)NonAf (>60 ml/min/1.73 sqM) Glucose (74-99) mg/dL Calcium (8.4-10.2) mg/dL Magnesium (1.6-2.3) mg/dL Total Bilirubin (0.2-1.3) mg/dL AST (17-59) U/L ALT (21-72) U/L Alkaline Phosphatase (38-126) U/L Troponin I <0.012 (0.000-0.034) ng/mL Total Protein (6.3-8.2) g/dL Albumin (3.5-5.0) g/dL Disposition Clinical Impression: Dyspnea, Pleural effusion Disposition: ADMITTED IP TO THIS HOSP Referrals: Cathy Rivera MD [Primary Care Provider] - 1-2 days Time of Disposition: 11:44
--- NOTE | 2019-02-02 10:23 | XR ---
EXAMINATION TYPE: XR chest 2V DATE OF EXAM: 02/02/2019 COMPARISON: Chest x-ray January 22, 2019. CTA chest January 12, 2019 HISTORY: History of COPD with shortness of breath. TECHNIQUE: Frontal and lateral views of the chest are obtained. FINDINGS: There is persistent cardiomegaly. There is persistent concentric narrowing of the trachea above the aortic knob. There is persistent moderate right pleural effusion and associated right lung atelectasis and/or infiltrate. Left lung remains clear. The osseous structures remain demineralized with slight scoliotic curvature and multilevel spurring in the spine. Calcified right infrahilar lymp h node redemonstrated. IMPRESSION: Overall stable findings, chronic emphysematous changes and cardiomegaly with persistent [id number] right pleural effusion and associated right lower lung masslike consolidation and/o r atelectasis. No significant change from most recent x-ray after thoracentesis.
[2019-02-02 11:02] LABS: Basophils % (A) 0 %; Eosinophils # (A) 0.1 k/uL (0-0.7); Eosinophils % (A) 1 %; HCT 34.1 % (39.0-53.0); HGB 11.2 gm/dL (13.0-17.5); Hypochromasia Slight; Lymphocytes # (A) 0.8 k/uL (1.0-4.8); Lymphocytes % (A) 8 %; MCH 27.9 pg (25.0-35.0); MCV 84.5 fL (80.0-100.0); Mean Platelet Volume 5.5; Monocytes # (A) 0.8 k/uL (0-1.0); Monocytes % (A) 8 %; Neutrophils # (A) 8.5 k/uL (1.3-7.7); Neutrophils % (A) 81 %; Platelet Count 596 k/uL (150-450); RBC 4.03 m/uL (4.30-5.90); RDW 15.1 % (11.5-15.5); WBC 10.5 k/uL (3.8-10.6)
[2019-02-02 11:09] LABS: Albumin 3.4 g/dL (3.5-5.0); Calcium 9.4 mg/dL (8.4-10.2); Magnesium 1.8 mg/dL (1.6-2.3); Total Bilirubin 0.4 mg/dL (0.2-1.3)
[2019-02-02 11:10] LABS: Prothrombin Time 10.4 sec (9.0-12.0)
[2019-02-02] MEDS ORDERED: SODIUM CHLORIDE 0.9% 1,000 ML IV ONE (11:44)
[2019-02-02] MEDS ORDERED: ONDANSETRON 4 MG/2 ML VIAL IVP PRN (11:57)
[2019-02-02] MEDS ORDERED: NALOXONE 0.4 MG/ML 1 ML VIAL IV PRN (11:57)
[2019-02-02] MEDS ORDERED: ACETAMINOPHEN TAB 325 MG TAB PO PRN (11:57)
--- NOTE | 2019-02-02 12:12 | P.HPIM ---
History of Present Illness H&P Date: 02/02/19 Chief Complaint: shortness of breath The patient is a 84-year-old male patient of Dr. Lucas with a past medical history of chronic respiratory failure on 3-4 L at baseline , COPD and former smoker, coronary artery disease with stenting 3, essential hyperten jose miguel, type 2 diabetes with peripheral neuropathy, renal artery stenosis with stenting who presents to the ER with chief complaint of worsening shortness of breath and cough. Apparently the patient has had recurrent episodes of recurrent pleural effusions on the right side that was last drained appr oximately 10 days ago, today he complains of worsening shortness of breath with exertion, lower extremity swelling, and productive cough with white sputum for the last week or so, he reports some pleuritic chest discomfort but denies any chest pain associated with exertion. He denies any subjective fevers chills or night sweats, denies any sick contacts. Patient reports grievously having right Pleurx catheter placed which was subsequently discontinued, and previous echocardiogram showing an EF of 60-65% without any significant valvular abnormalities and moderate pulmonary hypertension In the ER he had a comprehensive workup, EKG showed sinus rhythm, troponin was negative at less than 0.012, hemoglobin 11.2 hematocrit 34.1, serum sodium 135, serum creatinine 1.3, blood sugar 249. Chest x-ray indicated chronic emphysematous change with persistent small to moderate right-sided pleural e ffusion and associated right lower masslike consolidation and/or atelectasis without any recent change from prior thoracentesis Review of Systems Pertinent positives per HPI all other review is otherwise negative Past Medical History Past Medical History: COPD, Diabetes Mellitus, Hypertension, Thyroid Disorder Additional Past Medical History / Comment(s): Wears O@ @ 4L via [place], neuropathy bilateral arms/hands/legs and feet, TIA in 2009, poor circulation, renal artery stenosis with stent, diverticular dx. "Dr Guaman put tube in right chest and then took it out last week Jan 2019" History of Any Multi-Drug Resistant Organisms: None Reported Past Surgical History: Cholecystectomy, Heart Catheterization With Stent, Orthopedic Surgery Additional Past Surgical History / Comment(s): Bronchoscopy, Carpal Tunnel, renal stent, rotator cuff, cabrera cataracts, thorocentesis, insertion of PleurX in 2018. "doctors can't figure out why fluid is building up in chest" Additional Past Anesthesia/Blood Transfusion Reaction / Comment(s): Pt states he had a cardiac arrest during PCI/stent procedure 2006. Has had other surgical procedures with anesthesia since then with no problems at all. States he think i t was all heart issues and nothing to do with the anesthesia. Date of Last Stent Placement:: 04/10/08 Past Psychological History: No Psychological Hx Reported Smoking Status: Former smoker Past Alcohol Use History: Occasional Past Drug Use History: None Reported - Past Family History Father Family Medical History: Vascular Disorder Additional Family Medical History / Comment(s): Father of arterial sclerosis at the age of 56yrs. Mother Additional Family Medical History / Comment(s): Mother was a heavy drinker. Medications and Allergies Home Medications Medication Instructions Recorded Confirmed Type Atorvastatin [Lipitor] 20 mg PO HS 10/28/18 02/02/19 History Hydrochlorothiazide [Hydrodiuril] 25 mg PO DAILY 10/28/18 02/02/19 History Insulin Glargine [Lantus] 22 unit SQ HS 10/28/18 02/02/19 History Levothyroxine Sodium [Synthroid] 25 mcg PO DAILY 10/28/18 02/02/19 History Linagliptin [Tradjenta] 5 mg PO DAILY 10/28/18 02/02/19 History Multivitamins, Thera [Multivitamin 1 tab PO DAILY 10/28/18 02/02/19 History (formulary)] Vitamin B Complex 1 cap PO DAILY 10/28/18 02/02/19 History amLODIPine [Norvasc] 5 mg PO BID 10/28/18 02/02/19 History glipiZIDE [Glucotrol] 5 mg PO AC-BID 10/28/18 02/02/19 History hydrALAZINE HCL 25 mg PO TID 10/28/18 02/02/19 History Clopidogrel [Plavix] 75 mg PO DAILY 02/02/19 02/02/19 History Allergies Allergy/AdvReac Type Severity Reaction Status Date / Time No Known Allergies Allergy Verified 02/02/19 12:03 Physical Exam Vitals: Vital Signs Temp Pulse Resp BP Pulse Ox 02/02/19 09:26 97.6 F 99 28 H 140/74 87 L Intake and Output 12/01/19 12/02/19 12/02/19 22:59 06:59 14:59 Other: Weight 78.471 kg Constitutional: No acute distress, conversant, pleasant Eyes: Anicteric sclerae, moist conjunctiva, no lid-lag, PERRLA ENMT: NC/AT,Oropharynx clear, no erythema, exudates Neck:Supple, FROM, no masses, or JVD, No carotid bruits; No thyromegaly Lungs: diminished in the right middle and lower lung amaro, increased dullness to percussion, clear to auscultation on the left Cardiovascular: Heart regular in rate and rhythm, No murmurs, gallops, or rubs no peripheral edema Abdominal: Soft Nontender, nom distended, no guarding, no rebound or rigidity, Normoactive bowel sounds No hepatomegaly, No splenomegaly, No palpable mass No abdominal wall hernia noted Skin: Normal temperature, tone, texture, turgor, No induration No subcutaneous nodules, No rash, lesions, No ulcers Extremities:No digital cyanosis No clubbing, Pedal pulses intact and symmetrical Radial pulses intact and symmetrical Normal gait and station, No calf tenderness Psychiatric: Alert and oriented to person, place and time, Appropriate affect Intact judgement Neuro: Muscles Strength 5/5 in all 4 extremities, Sensation to light touch grossly present throughout, Cranial nerves II-XII grossly intact. No focal sensory deficits Results CBC & Chem 7: 02/03/19 05:38 02/03/19 05:38 Labs: Abnormal Lab Results - Last 24 Hours (Table) 02/02/19 02/02/19 Range/Units 10:43 10:43 RBC 4.03 L (4.30-5.90) m/uL Hgb 11.2 L (13.0-17.5) gm/dL Hct 34.1 L (39.0-53.0) % Plt Count 596 H (150-450) k/uL Neutrophils # 8.5 H (1.3-7.7) k/uL Lymphocytes # 0.8 L (1.0-4.8) k/uL Sodium 135 L (137-145) mmol/L Chloride 93 L (98-107) mmol/L BUN 24 H (9-20) mg/dL Creatinine 1.29 H (0.66-1.25) mg/dL Glucose 249 H (74-99) mg/dL Albumin 3.4 L (3.5-5.0) g/dL Assessment and Plan Assessment: Recurrent right-sided pleural effusion chronic respiratory failure Dyspnea Essential hypertension Type 2 diabetes with hyperglycemia Coronary artery disease with stenting COPD without acute exacerbation CKD stage III in the setting of Renal artery stenosis with stent with atrophic Left Kidney Plan: The patient is patient observation anticipated less than 2 midnight stay after presenting with dyspnea and a patient with recurrent right-sided pleural effusion of idiopathic cause, with chest x-ray confirming small to moderate pleural effusion with associated right lower lung masslike consolidation and/or atelectasis. The color is consulted from the ER will likely require therapeutic thoracentesis during this hospitalization, chest US is ordered; could consider replacing Pleurx catheter would defer to pulmonary and CTS surgery. The patient will be restarted on his home medications. We'll continue to follow his clinical course CODE STATUS: Full code Anticipated discharge: 1-[address]: Home Discussed plan of care with: Adolph Harry and patient medical decision maker: Adolph Harry Prophylaxis: SCDs
[2019-02-02 13:06] LABS: Glucose,Whole Blood 179 mg/dL (75-99)
[2019-02-02] MEDS ORDERED: FUROSEMIDE 10 MG/ML 4 ML VIAL IV STA (13:13)
--- NOTE | 2019-02-02 13:35 | US ---
EXAMINATION TYPE: US chest DATE OF EXAM: 02/02/2019 COMPARISON: US 2019 CLINICAL HISTORY: R sided pleural effusion. Right pleural effusion TECHNIQUE: Targeted ultrasound of the posterior lower right hemithorax EXAM MEASUREMENTS: Right Pleural Effusion pocket size: 8.1 cm Right skin surface to fluid distance: 2.9 cm Right side MARKED for possible thoracentesis outside the dept. Pulmonologists are able to review the images in the patient?s EMR. Fluid collection appears slightly loculated. IMPRESSIONS: Loculated right pleural effusion appears small.
[2019-02-02] MEDS: glipiZIDE 5 MG TAB PO SCH (15:45)
[2019-02-02] MEDS: hydrALAZINE HCL 25 MG TAB PO SCH ×2 (15:45→19:52)
--- NOTE | 2019-02-02 16:26 | P.CNPUL ---
History of Present Illness Consult date: 02/02/19 Requesting physician: Neil Bazan Reason for consult: dyspnea, pleural effusion, abnormal CXR/CT Chief complaint: Dyspnea, recurrent right-sided pleural effusion History of present illness: This is a 84-year-old male patient who is known to us from his previous admission for large right-sided pleural effusion, with previous thoracentesis on 10/29/2018 removal of 1950 mL of dark pleural fluid, which was exudative, however the cytology was negative, alters were also negative. On 11/20/2018 quinn cardenas underwent bronchoscopy with BAL airway examination, which did not show any endobronchial disease and cytology of the bronchial washing was negative. Patient had a reaccumulation of the right sided pleural effusion and was referred to thoracic surgery. A Pleurx catheter was placed in the right pleural space by Dr. Guaman on 12/11/2018, but because of decreased drainage, it was removed on January 08. Cytology of the pleural fluid collected on the day of the Pleurx catheter insertion was again negative. Most recently patient had a follow-up appointment with Dr. Rivas 01/12/2019 and patient was complaining of shortness of breath and for this reason CT angios chest was completed a large right-sided pleural effusion, right lower lobe volume loss, Infiltrate or a mass difficult to exclude, right-sided pleural thickening was also noted. No mediastinal mass or lymphadenopathy greater than 1 cm, there were calcified hilar mediastinal lymph nodes. Other medical history includes diabetes mellitus II with peripheral neuropathy, hypertension, hyperlipidemia, hypothyroidism, osteoarthritis, coronary artery disease with previous stenting, COPD, and patient is a former smoker, his history of TIA. Patient came into the emergency department on 02/02/2019 with complaints of worsening shortness of breath. He had a right-sided ultrasound-guided thoracentesis by interventional radiology on 01/22/2019 and approximately 600 mL of serous pleural fluid was removed and sent for analysis, cytology was negative, fluid analysis revealed exudative fluid LDH of 387, pleural fluid total protein of 3.9, and serum protein of 7.0. Chest x-ray was completed showing overall stable findings, on a Emphysematous changes and cardiomegaly with persistent small to moderate right-sided pleural effusion and associated right lower lung mass like consolidation and/or atelectasis. Chest x-ray was n ot significantly different from his most recent chest x-ray after his right- sided thoracentesis on 01/22/2019. Ultrasound of the chest showed 8.1 cm fluid pocket on the right. Previous echocardiogram in October 2018 showed preserved left ventricular systolic function with an EF of 60-65% without significant valvular abnormalities and a moderate pulmonary hypertension. EKG showed normal sinus rhythm without acute ischemic changes, troponin was negative. Patient denies any fever, chills, denies any cough or congestion, denied any chest pain or palpitations, no nausea, no vomiting or diarrhea. Having severe exertional dyspnea. He is currently on 3 L of oxygen with a pulse ox of 99%, increased wheezing. Review of Systems All systems: negative Constitutional: Denies chills, Denies fever Eyes: denies blurred vision, denies pain Ears, nose, mouth and throat: Denies headache, Denies sore throat Cardiovascular: Reports decreased exercise tolerance, Reports dyspnea on exertion, Reports edema, Reports leg edema, Reports shortness of breath, Denies chest pain Respiratory: Reports dyspnea, Reports wheezing, Denies cough Gastrointestinal: Denies abdominal pain, Denies diarrhea, Denies nausea, Denies vomiting Musculoskeletal: Denies myalgias Integumentary: Denies pruritus, Denies rash Neurological: Denies numbness, Denies weakness Psychiatric: Denies anxiety, Denies depression Endocrine: Denies fatigue, Denies weight change Past Medical History Past Medical History: COPD, Diabetes Mellitus, Hypertension, Thyroid Disorder Additional Past Medical History / Comment(s): Wears O@ @ 4L via NC, neuropathy bilateral arms/hands/legs and feet, TIA in 2009, poor circulation, renal artery stenosis with stent, diverticular dx. "Dr Guaman put tube in right chest and then took it out last week Jan 2019" History of Any Multi-Drug Resistant Organisms: None Reported Past Surgical History: Cholecystectomy, Heart Catheterization With Stent, Orthopedic Surgery Additional Past Surgical History / Comment(s): Bronchoscopy, Carpal Tunnel, emma al stent, rotator cuff, cabrera cataracts, thorocentesis, insertion of PleurX in 2018. "doctors can't figure out why fluid is building up in chest" Additional Past Anesthesia/Blood Transfusion Reaction / Comment(s): Pt states he had a cardiac arrest during PCI/stent procedure 2006. Has had other surgical procedures with anesthesia since then with no problems at all. States he think it was all heart issues and nothing to do with the anesthesia. Date of Last Stent Placement:: 04/10/08 Past Psychological History: No Psychological Hx Reported Smoking Status: Former smoker Past Alcohol Use History: Occasional Past Drug Use History: None Reported - Past Family History Father Family Medical History: Vascular Disorder Additional Family Medical History / Comment(s): Father of arterial sclerosis at the age of 56yrs. Mother Additional Family Medical History / Comment(s): Mother was a heavy drinker. Medications and Allergies Home Medications Medication Instructions Recorded Confirmed Type Atorvastatin [Lipitor] 20 mg PO HS 10/28/18 02/02/19 History Hydrochlorothiazide [Hydrodiuril] 25 mg PO DAILY 10/28/18 02/02/19 History Insulin Glargine [Lantus] 22 unit SQ HS 10/28/18 02/02/19 History Levothyroxine Sodium [Synthroid] 25 mcg PO DAILY 10/28/18 02/02/19 History Linagliptin [Tradjenta] 5 mg PO DAILY 10/28/18 02/02/19 History Multivitamins, Thera [Multivitamin 1 tab PO DAILY 10/28/18 02/02/19 History (formulary)] Vitamin B Complex 1 cap PO DAILY 10/28/18 02/02/19 History amLODIPine [Norvasc] 5 mg PO BID 10/28/18 02/02/19 History glipiZIDE [Glucotrol] 5 mg PO AC-BID 10/28/18 02/02/19 History hydrALAZINE HCL 25 mg PO TID 10/28/18 02/02/19 History Clopidogrel [Plavix] 75 mg PO DAILY 02/02/19 02/02/19 History Allergies Allergy/AdvReac Type Severity Reaction Status Date / Time No Known Allergies Allergy Verified 02/02/19 12:03 Physical Exam Vitals: Vital Signs Temp Pulse Resp BP Pulse Ox 02/02/19 12:46 97.6 F 89 17 160/92 99 02/02/19 12:21 89 160/92 99 02/02/19 12:00 89 160/92 99 02/02/19 11:30 89 17 168/78 95 02/02/19 11:00 93 34 H 146/79 97 02/02/19 10:53 85 35 H 02/02/19 09:26 97.6 F 99 28 H 140/74 87 L Intake and Output 02/01/19 02/02/19 02/02/19 22:59 06:59 14:59 Other: Weight 78.471 kg GENERAL EXAM: Alert, pleasant, 84-year-old white male, on 3 L of oxygen, dyspneic and bronchospastic HEAD: Normocephalic/atraumatic. EYES: Normal reaction of pupils, equal size. Conjunctiva pink, sclera white. NOSE: Clear with pink turbinates. THROAT: No erythema or exudates. NECK: No masses, no JVD, no thyroid enlargement, no adenopathy. CHEST: No chest wall deformity. Symmetrical expansion. LUNGS: Equal air entry with diminished breath sounds over right mid and lower lobe, and diffuse wheezes CVS: Regular rate and rhythm, normal S1 and S2, no gallops, no murmurs, no rubs ABDOMEN: Soft, nontender. No hepatosplenomegaly, normal bowel sounds, no guarding or rigidity. EXTREMITIES: No clubbing, 1+ edema, no cyanosis, 2+ pulses and upper and lower extremities. MUSCULOSKELETAL: Muscle strength and tone normal. SPINE: No scoliosis or deformity SKIN: No rashes CENTRAL NERVOUS SYSTEM: Alert and oriented -3. No focal deficits, tone is normal in all 4 extremities. PSYCHIATRIC: Alert and oriented -3. Appropriate affect. Intact judgment and insight. Results - Laboratory Findings CBC and BMP: 02/02/19 10:43 02/02/19 10:43 PT/INR, D-dimer PT 10.4 sec (9.0-12.0) 02/02/19 10:43 INR 1.0 (<1.2) 02/02/19 10:43 Abnormal lab findings: Abnormal Labs 02/02/19 02/02/19 02/02/19 10:43 10:43 12:54 RBC 4.03 L Hgb 11.2 L Hct 34.1 L Plt Count 596 H Neutrophils # 8.5 H Lymphocytes # 0.8 L Sodium 135 L Chloride 93 L BUN 24 H Creatinine 1.29 H Glucose 249 H POC Glucose (mg/dL) 179 H Albumin 3.4 L - Diagnostic Findings Chest x-ray: report reviewed, image reviewed Additional studies: EKG reviewed Assessment and Plan Plan: Assessment: #1. Dyspnea related to recurrent right-sided pleural effusion, with previous history of right-sided thoracentesis and Pleurx catheter placement with subsequent removal. Pleural fluid was found to be exudative, however cytology and cultures were negative. Patient had a bronchoscopy on 11/20/2018 with no evidence of endobronchial disease, and bronchial lavage cytology was negative #2. Recent history of right-sided thoracentesis on 01/22/2019 with removal of 600 mL of serous pleural fluid, exudative in nature, and cytology and cultures were negative #3. Placement of a right-sided Pleurx catheter subsequent removal in view of decreased pleural fluid drainage #4. COPD #5. Previous history of smoking, in remission, patient does carry 35 years of smoking history #6. Acute kidney injury #7. Coronary artery disease, with previous stenting #8. Diabetes mellitus type 2 with diabetic neuropathy #9. Hypertension #10. Hyperlipidemia #11. Hypothyroidism #12. Diverticulosis Plan: Patient received a dose of IV Lasix for increased difficulty breathing, and low er extremity edema. Chest ultrasound results have been reviewed, the right- sided pleural effusion has reaccumulated, and we will ask the interventional radiology to place a pigtail chest tube for drainage of the pleural fluid. If the pleural fluid continues to rapidly reaccumulate may need to consider Pleurx catheter placement, and pleural biopsy. I performed a history & physical examination of the patient and discussed their management with my nurse practitioner, Mireille Tillman. I reviewed the nurse practitioner's note and agree with the documented findings and plan of care. Lung sounds are positive for diffuse wheezes throughout the lung amaro. The findings and the impression was discussed with the patient. I attest to the documentation by the nurse practitioner. Time with Patient: Greater than 30
[2019-02-02 17:12] LABS: Glucose,Whole Blood 203 mg/dL (75-99)
[2019-02-02] MEDS: amLODIPine 5 MG TAB PO SCH (19:52)
[2019-02-02] MEDS: INSULIN ASPART (NovoLOG) 100 UNIT/ML VIAL SQ SCH (19:53)
[2019-02-02] MEDS: ATORVASTATIN 20 MG TAB PO SCH (19:53)
[2019-02-02 19:55] LABS: Glucose,Whole Blood 204 mg/dL (75-99)
[2019-02-02] MEDS: INSULIN DETEMIR (LEVEMIR) 100 UNIT/ML SYR SQ SCH (20:37)
[2019-02-03 03:43] LABS: Hemoglobin A1C 8.1 % (4.0-6.0)
[2019-02-03 06:24] LABS: Basophils % (A) 0 %; Eosinophils # (A) 0.2 k/uL (0-0.7); Eosinophils % (A) 1 %; HGB 12.3 gm/dL (13.0-17.5); Lymphocytes # (A) 0.9 k/uL (1.0-4.8); Lymphocytes % (A) 8 %; MCH 27.1 pg (25.0-35.0); MCHC 31.7 g/dL (31.0-37.0); MCV 85.5 fL (80.0-100.0); Mean Platelet Volume 6.3; Monocytes # (A) 0.9 k/uL (0-1.0); Monocytes % (A) 8 %; Neutrophils # (A) 9.1 k/uL (1.3-7.7); Neutrophils % (A) 81 %; Platelet Count 598 k/uL (150-450); RBC 4.56 m/uL (4.30-5.90); RDW 15.6 % (11.5-15.5); WBC 11.3 k/uL (3.8-10.6)
[2019-02-03 06:30] LABS: Glucose,Whole Blood 130 mg/dL (75-99)
[2019-02-03] MEDS: INSULIN ASPART (NovoLOG) 100 UNIT/ML VIAL SQ SCH ×4 (06:34→21:02)
[2019-02-03 06:38] LABS: Albumin 3.8 g/dL (3.5-5.0); Calcium 9.5 mg/dL (8.4-10.2); Potassium 4.2 mmol/L (3.5-5.1); Total Bilirubin 0.5 mg/dL (0.2-1.3); Total Protein 7.4 g/dL (6.3-8.2)
[2019-02-03] MEDS: glipiZIDE 5 MG TAB PO SCH ×2 (06:40→15:53)
[2019-02-03] MEDS: LEVOTHYROXINE 25 MCG TAB PO SCH (06:40)
[2019-02-03] MEDS ORDERED: CLOPIDOGREL 75 MG TAB PO SCH (09:00)
[2019-02-03] MEDS ORDERED: NON FORMULARY DRUG (Vitamin B Complex [Vitamin B Complex] 1 CAP) PO SCH (09:00)
[2019-02-03] MEDS: MULTIVITAMINS, THERA 1 EACH TAB PO SCH (09:07)
[2019-02-03] MEDS: hydrALAZINE HCL 25 MG TAB PO SCH ×3 (09:07→21:03)
[2019-02-03] MEDS: HYDROCHLOROTHIAZIDE 25 MG TAB PO SCH (09:08)
[2019-02-03] MEDS: amLODIPine 5 MG TAB PO SCH ×2 (09:08→21:03)
[2019-02-03] MEDS: LINAGLIPTIN 5 MG TABLET PO SCH (09:08)
[2019-02-03 11:50] LABS: Glucose,Whole Blood 136 mg/dL (75-99)
--- NOTE | 2019-02-03 12:20 | P.PN ---
Subjective Progress Note Date: 02/03/19 Principal diagnosis: The patient is a 84-year-old male patient of Dr. Lucas with a past medical history of chronic respiratory failure on 3-4 L at baseline , COPD and former smoker, coronary artery disease with stenting 3, essential hypertension, type 2 diabetes with peripheral neuropathy, renal artery stenosis with stenting who presents to the ER with chief complaint of worsening shortness of breath and cough.the patient was admitted with dyspnea due to recurrent idiopathicright-sided pleural effusion previously worked up with pleural fluid analysis did not point to any causative etiology. pulmonary was consulted who recommended iron replacement of a pigtail chest tube for drainage of the pleural fluid 02/03. patient's and examined at bedside present, reporting that his breathing is better has been up and ambulatory to the restroom and back, reports decreased swelling in his lower extremities. no acute events overnight Objective - Vital Signs Vital signs: Vital Signs Temp 97.5 F L 02/03/19 08:00 Pulse 87 02/03/19 12:00 Resp 22 02/03/19 12:00 BP 157/83 02/03/19 12:00 Pulse Ox 97 02/03/19 12:00 Intake & Output 02/02/19 02/03/19 02/03/19 18:59 06:59 18:59 Intake Total 240 Output Total 300 725 Balance -300 -725 240 Weight 78.471 kg 71.6 kg Intake: Oral 240 Output: Urine 300 725 Other: # Voids 0 1 # Bowel Movements 1 - Exam Constitutional: No acute distress, conversant, pleasant Eyes: Anicteric sclerae, moist conjunctiva, no lid-lag, PERRLA ENMT: NC/AT,Oropharynx clear, no erythema, exudates Neck:Supple, FROM, no masses, or JVD, No carotid bruits; No thyromegaly Lungs: diminished in the right middle and lower lung amaro, increased dullness to percussion, clear to auscultation on the left Cardiovascular: Heart regular in rate and rhythm, No murmurs, gallops, or rubs, +1 peripheral edema Abdominal: Soft Nontender, nom distended, no guarding, no rebound or rigidity, Normoactive bowel sounds No hepatomegaly, No splenomegaly, No palpable mass No abdominal wall hernia noted Skin: Normal temperature, tone, texture, turgor, No induration No subcutaneous nodules, No rash, lesions, No ulcers Extremities:No digital cyanosis No clubbing, Pedal pulses intact and symmetrical Radial pulses intact and symmetrical Normal gait and station, No calf tenderness Psychiatric: Alert and oriented to person, place and time, Appropriate affect Intact judgement Neuro: Muscles Strength 5/5 in all 4 extremities, Sensation to light touch gr ossly present throughout, Cranial nerves II-XII grossly intact. No focal sensory deficits - Labs CBC & Chem 7: 02/03/19 05:38 02/03/19 05:38 Labs: Abnormal Lab Results - Last 24 Hours (Table) 02/02/19 02/02/19 02/02/19 Range/Units 10:43 12:54 16:55 WBC (3.8-10.6) k/uL Hgb (13.0-17.5) gm/dL RDW (11.5-15.5) % Plt Count (150-450) k/uL Neutrophils # (1.3-7.7) k/uL Lymphocytes # (1.0-4.8) k/uL Sodium (137-145) mmol/L Chloride (98-107) mmol/L BUN (9-20) mg/dL Creatinine (0.66-1.25) mg/dL Glucose (74-99) mg/dL POC Glucose (mg/dL) 179 H 203 H (75-99) mg/dL Hemoglobin A1c 8.1 H (4.0-6.0) % 02/02/19 02/03/19 02/03/19 Range/Units 19:43 05:38 05:38 WBC 11.3 H (3.8-10.6) k/uL Hgb 12.3 L (13.0-17.5) gm/dL RDW 15.6 H (11.5-15.5) % Plt Count 598 H (150-450) k/uL Neutrophils # 9.1 H (1.3-7.7) k/uL Lymphocytes # 0.9 L (1.0-4.8) k/uL Sodium 136 L (137-145) mmol/L Chloride 95 L (98-107) mmol/L BUN 27 H (9-20) mg/dL Creatinine 1.27 H (0.66-1.25) mg/dL Glucose 119 H (74-99) mg/dL POC Glucose (mg/dL) 204 H (75-99) mg/dL Hemoglobin A1c (4.0-6.0) % 02/03/19 02/03/19 Range/Units 06:29 11:48 WBC (3.8-10.6) k/uL Hgb (13.0-17.5) gm/dL RDW (11.5-15.5) % Plt Count (150-450) k/uL Neutrophils # (1.3-7.7) k/uL Lymphocytes # (1.0-4.8) k/uL Sodium (137-145) mmol/L Chloride (98-107) mmol/L BUN (9-20) mg/dL Creatinine (0.66-1.25) mg/dL Glucose (74-99) mg/dL POC Glucose (mg/dL) 130 H 136 H (75-99) mg/dL Hemoglobin A1c (4.0-6.0) % Assessment and Plan Assessment: Recurrent right-sided pleural effusion * History of bronchoscopy 11/20 with no evidence of endobronchial disease, nothing by mouth negative cytology * Prior thoracentesis 01/22 pleural analysis exudative with cytology and cultures negative * Plan for right sided pigtail catheter placement later today * Appreciate pulmonary recommendations chronic respiratory failure * Continue on supplemental oxygen at 3 L Dyspnea * Secondary to recurrent right-sided pleural effusion Essential hypertension * Blood pressure stable and controlled * Continue current regimen Type 2 diabetes with hyperglycemia * Blood sugar stable and controlled continue current regimen Coronary artery disease with stenting * Stable asymptomatic COPD without acute exacerbation Stable asymptomatic * CKD stage III in the setting of Renal artery stenosis with stent with atrophic L eft Kidney
--- NOTE | 2019-02-03 12:50 | P.PN ---
Subjective Progress Note Date: 02/03/19 Principal diagnosis: This is a 84-year-old male patient who is known to us from his previous admission for large right-sided pleural effusion, with previous thoracentesis on 10/29/2018 removal of 1950 mL of dark pleural fluid, which was exudative, however the cytology was negative, alters were also negative. On 11/20/2018 patient underwent bronchoscopy with BAL airway examination, which did not show any endobronchial disease and cytology of the bronchial washing was negative. Patient had a reaccumulation of the right sided pleural effusion and was referred to thoracic surgery. A Pleurx catheter was placed in the right pleural space by Dr. Guaman on 12/11/2018, but because of decreased drainage, it was removed on January 08. Cytology of the pleural fluid collected on the day of the Pleurx catheter insertion was again negative. Most recently patient had a follow-up appointment with Dr. Rivas 01/12/2019 and patient was complaining of shortness of breath and for this reason CT angios chest was completed a large right-sided pleural effusion, right lower lobe volume loss, Infiltrate or a mass difficult to exclude, right-sided pleural thickening was also noted. No mediastinal mass or lymphadenopathy greater than 1 cm, there were calcified hilar mediastinal lymph nodes. Other medical history includes diabetes mellitus II with peripheral neuropathy, hypertension, hyperlipidemia, hypothyroidism, osteoarthritis, coronary artery disease with previous stenting, COPD, and patient is a former smoker, his history of TIA. Patient came into the emergency department on 02/02/2019 with complaints of worsening shortness of breath. He had a right-sided ultrasound-guided thoracentesis by interventional radiology on 01/22/2019 and approximately 600 mL of serous pleural fluid was removed and sent for analysis, cytology was negative, fluid analysis revealed exudative fluid LDH of 387, pleural fluid total protein of 3.9, and serum protein of 7.0. Chest x-ray was completed showing overall stable findings, on a Emphysematous changes and cardiomegaly with persistent small to moderate right-sided pleural effusion and associated right lower lung mass like consolidation and/or atelectasis. Chest x-ray was not significantly different from his most recent chest x-ray after his right- sided thoracentesis on 01/22/2019. Ultrasound of the chest showed 8.1 cm fluid pocket on the right. Previous echocardiogram in October 2018 showed preserved left ventricular systolic function with an EF of 60-65% without significant valvular abnormalities and a moderate pulmonary hypertension. EKG showed normal sinus rhythm without acute ischemic changes, troponin was negative. Patient denies any fever, chills, denies any cough or congestion, denied any chest pain or palpitations, no nausea, no vomiting or diarrhea. Having severe exertional dyspnea. He is currently on 3 L of oxygen with a pulse ox of 99%, increased wheezing. On 02/03/2019 patient seen in follow-up on selective care unit. Interventional radiology was consulted yesterday for right-sided pigtail chest tube insertion however they recommended Plavix to be held for 5 days. Patient is Alert, and si tting up on the edge of the bed today, he is having shortness of breath on exertion and at times at rest, and intermittent pain in his right torso. He is on 3 L of oxygen with a pulse ox of 97%, he is afebrile, hemodynamically stable, Plavix was held today. We will consult the cardiothoracic surgery for placement of a Pleurx catheter, and possible biopsies. Objective - Vital Signs Vital signs: Vital Signs Temp 97.5 F L 02/03/19 08:00 Pulse 87 02/03/19 12:00 Resp 22 02/03/19 12:00 BP 157/83 02/03/19 12:00 Pulse Ox 97 02/03/19 12:00 Intake & Output 02/02/19 02/03/19 02/03/19 18:59 06:59 18:59 Intake Total 240 Output Total 300 725 Balance -300 -725 240 Weight 78.471 kg 71.6 kg Intake: Oral 240 Output: Urine 300 725 Other: # Voids 0 1 # Bowel Movements 1 - Exam GENERAL EXAM: Alert, pleasant, 84-year-old white male, on 3 L of oxygen, dyspneic and bronchospastic HEAD: Normocephalic/atraumatic. EYES: Normal reaction of pupils, equal size. Conjunctiva pink, sclera white. NOSE: Clear with pink turbinates. THROAT: No erythema or exudates. NECK: No masses, no JVD, no thyroid enlargement, no adenopathy. CHEST: No chest wall deformity. Symmetrical expansion. LUNGS: Equal air entry with diminished breath sounds over right mid and lower lobe, and diffuse wheezes CVS: Regular rate and rhythm, normal S1 and S2, no gallops, no murmurs, no rubs ABDOMEN: Soft, nontender. No hepatosplenomegaly, normal bowel sounds, no guarding or rigidity. EXTREMITIES: No clubbing, 1+ edema, no cyanosis, 2+ pulses and upper and lower extremities. MUSCULOSKELETAL: Muscle strength and tone normal. SPINE: No scoliosis or deformity SKIN: No rashes CENTRAL NERVOUS SYSTEM: Alert and oriented -3. No focal deficits, tone is normal in all 4 extremities. PSYCHIATRIC: Alert and oriented -3. Appropriate affect. Intact judgment and insight. - Labs CBC & Chem 7: 02/03/19 05:38 02/03/19 05:38 Labs: Abnormal Lab Results - Last 24 Hours (Table) 02/02/19 02/02/19 02/02/19 Range/Units 10:43 12:54 16:55 WBC (3.8-10.6) k/uL Hgb (13.0-17.5) gm/dL RDW (11.5-15.5) % Plt Count (150-450) k/uL Neutrophils # (1.3-7.7) k/uL Lymphocytes # (1.0-4.8) k/uL Sodium (137-145) mmol/L Chloride (98-107) mmol/L BUN (9-20) mg/dL Creatinine (0.66-1.25) mg/dL Glucose (74-99) mg/dL POC Glucose (mg/dL) 179 H 203 H (75-99) mg/dL Hemoglobin A1c 8.1 H (4.0-6.0) % 02/02/19 02/03/19 02/03/19 Range/Units 19:43 05:38 05:38 WBC 11.3 H (3.8-10.6) k/uL Hgb 12.3 L (13.0-17.5) gm/dL RDW 15.6 H (11.5-15.5) % Plt Count 598 H (150-450) k/uL Neutrophils # 9.1 H (1.3-7.7) k/uL Lymphocytes # 0.9 L (1.0-4.8) k/uL Sodium 136 L (137-145) mmol/L Chloride 95 L (98-107) mmol/L BUN 27 H (9-20) mg/dL Creatinine 1.27 H (0.66-1.25) mg/dL Glucose 119 H (74-99) mg/dL POC Glucose (mg/dL) 204 H (75-99) mg/dL Hemoglobin A1c (4.0-6.0) % 02/03/19 02/03/19 Range/Units 06:29 11:48 WBC (3.8-10.6) k/uL Hgb (13.0-17.5) gm/dL RDW (11.5-15.5) % Plt Count (150-450) k/uL Neutrophils # (1.3-7.7) k/uL Lymphocytes # (1.0-4.8) k/uL Sodium (137-145) mmol/L Chloride (98-107) mmol/L BUN (9-20) mg/dL Creatinine (0.66-1.25) mg/dL Glucose (74-99) mg/dL POC Glucose (mg/dL) 130 H 136 H (75-99) mg/dL Hemoglobin A1c (4.0-6.0) % Assessment and Plan Plan: Assessment: #1. Dyspnea related to recurrent right-sided pleural effusion, with previous history of right-sided thoracentesis and Pleurx catheter placement with subsequent removal. Pleural fluid was found to be exudative, however cytology and cultures were negative. Patient had a bronchoscopy on 11/20/2018 with no evidence of endobronchial disease, and bronchial lavage cytology was negative #2. Recent history of right-sided thoracentesis on 01/22/2019 with removal of 600 mL of serous pleural fluid, exudative in nature, and cytology and cultures were negative #3. Placement of a right-sided Pleurx catheter subsequent removal in view of decreased pleural fluid drainage #4. COPD #5. Previous history of smoking, in remission, patient does carry 35 years of smoking history #6. Acute kidney injury #7. Coronary artery disease, with previous stenting #8. Diabetes mellitus type 2 with diabetic neuropathy #9. Hypertension #10. Hyperlipidemia #11. Hypothyroidism #12. Diverticulosis Plan: Hold Plavix, we will consult cardiac thoracic surgery for possibility of right chest Pleurx catheter insertion and possible pleural biopsies. I performed a history & physical examination of the patient and discussed their management with my nurse practitioner, Mireille Tillman. I reviewed the nurse practitioner's note and agree with the documented findings and plan of care. Lung sounds are positive for diffuse wheezes throughout the lung amaro. The findings and the impression was discussed with the patient. I attest to the documentation by the nurse practitioner. Time with Patient: Less than 30
--- NOTE | 2019-02-03 14:25 | P.GSCN ---
History of Present Illness Consult date: 02/03/19 Reason for Consult: Recurrent right-sided pleural effusion Requesting physician: Monse Leonard History of present illness: This is an 84-year-old gentleman who follows on an outpatient basis with Dr. Rivera. He has a previous medical history significant for recurrent right pleural effusion, previous tobacco dependence, COPD on home oxygen therapy, coronary artery disease with previous stenting, chronic kidney disease stage III with previous renal artery stenting, hypertension, hyperlipidemia, hypothyroidism, and diabetes. He is well-known to our service as Dr. Guaman was consulted earlier this year for Pleurx catheter placement after patient had thoracentesis 2 with rapid reaccumulation of fluid. Right-sided Pleurx catheter was placed on 12/11/2018, and the patient was sent home to continue to drain as needed. Initially he had higher drainage amounts, but eventually he had minimal drainage in the Pleurx catheter was removed on 01/08/2019. Subsequently he reaccumulated fluid on the right side, and Dr. Arrieta from interventional radiology performed a thoracentesis on the 2018 with removal of 600 mL of fluid. Pleural fluid has been sent for cytology several times, always resulting as reactive mesothelial cells with no malignancy noted. This gentleman presented back to [facility] emergency room yesterday with continued complaints of shortness of breath with any activity. He does state that he feels okay if he just lays there and does nothing, but even walking to the bathroom causes him significant shortness of breath. He denies any chest pain, dizziness, fevers, or recent sick contacts. He does admit to productive cough with whitish colored sputum and bilateral lower extremity edema. Chest x- ray completed in the emergency room demonstrated cardiomegaly, chronic emp hysematous changes, and persistent small to moderate right-sided pleural effusion which appears unchanged from most recent x-ray after thoracentesis almost 2 weeks ago. Chest ultrasound was also completed demonstrating 8.1 cm right-sided fluid pocket. The patient was admitted for evaluation and treatment with consultation placed to pulmonology. Due to the patient's reaccumulation of fluid, consultation was placed to Dr. Powers from cardiothoracic surgery for treatment recommendations, possible replacement of Pleurx catheter, and possible biopsies. Review of Systems Review of systems was completed and was negative except as noted - Cardiovascular Reports dyspnea on exertion, Reports leg edema - Respiratory Reports cough with sputum, Reports dyspnea, Reports home oxygen Past Medical History Past Medical History: Coronary Artery Disease (CAD), COPD, Diabetes Mellitus, Hyperlipidemia, Hypertension, Thyroid Disorder Additional Past Medical History / Comment(s): Wears O@ @ 4L via [place], neuropathy bilateral arms/hands/legs and feet, TIA in 2009, poor circulation, renal artery stenosis with stent, diverticular dx.; recurrent right-sided pleural effusion History of Any Multi-Drug Resistant Organisms: None Reported Past Surgical History: Cholecystectomy, Heart Catheterization With Stent, Ortho pedic Surgery Additional Past Surgical History / Comment(s): Bronchoscopy, Carpal Tunnel, renal stent, rotator cuff, cabrera cataracts, thorocentesis, right-sided Pleurx catheter placement 12/11/2018 with removal 01/08/2019 Additional Past Anesthesia/Blood Transfusion Reaction / Comm: Pt states he had a cardiac arrest during PCI/stent procedure 2006. Has had other surgical procedures with anesthesia since then with no problems at all. States he think it was all heart issues and nothing to do with the anesthesia. Date of Last Stent Placement:: 04/10/08 Past Psychological History: No Psychological Hx Reported Smoking Status: Former smoker Past Alcohol Use History: Occasional Past Drug Use History: None Reported - Past Family History Father Family Medical History: Vascular Disorder Additional Family Medical History / Comment(s): Father of arterial sclerosis at the age of 56yrs. Mother Additional Family Medical History / Comment(s): Mother was a heavy drinker. Medications and Allergies Home Medications Medication Instructions Recorded Confirmed Type Atorvastatin [Lipitor] 20 mg PO HS 10/28/18 02/02/19 History Hydrochlorothiazide [Hydrodiuril] 25 mg PO DAILY 10/28/18 02/02/19 History Insulin Glargine [Lantus] 22 unit SQ HS 10/28/18 02/02/19 History Levothyroxine Sodium [Synthroid] 25 mcg PO DAILY 10/28/18 02/02/19 History Linagliptin [Tradjenta] 5 mg PO DAILY 10/28/18 02/02/19 History Multivitamins, Thera [Multivitamin 1 tab PO DAILY 10/28/18 02/02/19 History (formulary)] Vitamin B Complex 1 cap PO DAILY 10/28/18 02/02/19 History amLODIPine [Norvasc] 5 mg PO BID 10/28/18 02/02/19 History glipiZIDE [Glucotrol] 5 mg PO AC-BID 10/28/18 02/02/19 History hydrALAZINE HCL 25 mg PO TID 10/28/18 02/02/19 History Clopidogrel [Plavix] 75 mg PO DAILY 02/02/19 02/02/19 History Allergies Allergy/AdvReac Type Severity Reaction Status Date / Time No Known Allergies Allergy Verified 02/02/19 12:03 Surgical - Exam Vital Signs Temp Pulse Resp BP Pulse Ox 97.6 F 99 28 H 140/74 87 L 02/02/19 09:26 02/02/19 09:26 02/02/19 09:26 02/02/19 09:26 02/02/19 09:26 - General well developed, well nourished, no distress, no pain, chronically ill - Eyes PERRL, normal ocular movement - ENT no hearing loss - Neck no masses, no bruits, trachea midline - Respiratory Lungs sounds diminished bilaterally, right greater than left. Respirations even, nonlabored. Currently on 3 L nasal cannula with oxygen saturation 97%. - Cardiovascular S1, S2 present. Regular rate and rhythm, sinus rhythm on telemetry. Palpable peripheral pulses bilaterally. 1-2+ bilateral lower extremity edema present, right greater than left. No calf pain or tenderness noted. - Abdomen Abdomen: soft, non tender, bowel sounds - Genitourinary Deferred - Rectum Deferred - Integumentary no rash, no growths - Neurologic normal coordination, normal sensation - Musculoskeletal normal gait, normal posture - Psychiatric oriented to time, oriented to person, oriented to place, speech is normal, memory intact Results - Labs 02/03/19 05:38 02/03/19 05:38 Abnormal Lab Results - Last 24 Hours (Table) 02/02/19 02/02/19 02/02/19 Range/Units 10:43 16:55 19:43 WBC (3.8-10.6) k/uL Hgb (13.0-17.5) gm/dL RDW (11.5-15.5) % Plt Count (150-450) k/uL Neutrophils # (1.3-7.7) k/uL Lymphocytes # (1.0-4.8) k/uL Sodium (137-145) mmol/L Chloride (98-107) mmol/L BUN (9-20) mg/dL Creatinine (0.66-1.25) mg/dL Glucose (74-99) mg/dL POC Glucose (mg/dL) 203 H 204 H (75-99) mg/dL Hemoglobin A1c 8.1 H (4.0-6.0) % 02/03/19 02/03/19 02/03/19 Range/Units 05:38 05:38 06:29 WBC 11.3 H (3.8-10.6) k/uL Hgb 12.3 L (13.0-17.5) gm/dL RDW 15.6 H (11.5-15.5) % Plt Count 598 H (150-450) k/uL Neutrophils # 9.1 H (1.3-7.7) k/uL Lymphocytes # 0.9 L (1.0-4.8) k/uL Sodium 136 L (137-145) mmol/L Chloride 95 L (98-107) mmol/L BUN 27 H (9-20) mg/dL Creatinine 1.27 H (0.66-1.25) mg/dL Glucose 119 H (74-99) mg/dL POC Glucose (mg/dL) 130 H (75-99) mg/dL Hemoglobin A1c (4.0-6.0) % 02/03/19 Range/Units 11:48 WBC (3.8-10.6) k/uL Hgb (13.0-17.5) gm/dL RDW (11.5-15.5) % Plt Count (150-450) k/uL Neutrophils # (1.3-7.7) k/uL Lymphocytes # (1.0-4.8) k/uL Sodium (137-145) mmol/L Chloride (98-107) mmol/L BUN (9-20) mg/dL Creatinine (0.66-1.25) mg/dL Glucose (74-99) mg/dL POC Glucose (mg/dL) 136 H (75-99) mg/dL Hemoglobin A1c (4.0-6.0) % Diabetes panel 02/02/19 02/03/19 Range/Units 10:43 05:38 Sodium 136 L (137-145) mmol/L Potassium 4.2 (3.5-5.1) mmol/L Chloride 95 L (98-107) mmol/L Carbon Dioxide 29 (22-30) mmol/L BUN 27 H (9-20) mg/dL Creatinine 1.27 H (0.66-1.25) mg/dL Glucose 119 H (74-99) mg/dL Hemoglobin A1c 8.1 H (4.0-6.0) % Calcium 9.5 (8.4-10.2) mg/dL AST 26 (17-59) U/L ALT 24 (21-72) U/L Alkaline Phosphatase 92 (38-126) U/L Total Protein 7.4 (6.3-8.2) g/dL Albumin 3.8 (3.5-5.0) g/dL Calcium panel 02/03/19 Range/Units 05:38 Calcium 9.5 (8.4-10.2) mg/dL Albumin 3.8 (3.5-5.0) g/dL Pituitary panel 02/03/19 Range/Units 05:38 Sodium 136 L (137-145) mmol/L Potassium 4.2 (3.5-5.1) mmol/L Chloride 95 L (98-107) mmol/L Carbon Dioxide 29 (22-30) mmol/L BUN 27 H (9-20) mg/dL Creatinine 1.27 H (0.66-1.25) mg/dL Glucose 119 H (74-99) mg/dL Calcium 9.5 (8.4-10.2) mg/dL Adrenal panel 02/03/19 Range/Units 05:38 Sodium 136 L (137-145) mmol/L Potassium 4.2 (3.5-5.1) mmol/L Chloride 95 L (98-107) mmol/L Carbon Dioxide 29 (22-30) mmol/L BUN 27 H (9-20) mg/dL Creatinine 1.27 H (0.66-1.25) mg/dL Glucose 119 H (74-99) mg/dL Calcium 9.5 (8.4-10.2) mg/dL Total Bilirubin 0.5 (0.2-1.3) mg/dL AST 26 (17-59) U/L ALT 24 (21-72) U/L Alkaline Phosphatase 92 (38-126) U/L Total Protein 7.4 (6.3-8.2) g/dL Albumin 3.8 (3.5-5.0) g/dL - Imaging Chest x-ray: report reviewed, image reviewed Additional studies: Chest ultrasound reviewed Assessment and Plan Assessment: 1. Recurrent right-sided pleural effusion, status post multiple thoracentesis, status post Pleurx catheter placement on 12/11/2018 with removal on 01/08/2019, all cytology negative for malignancy, positive for reactive mesothelial cells 2. Previous tobacco dependence 3. COPD on home oxygen therapy 4. Coronary artery disease with previous stenting 5. Chronic kidney disease stage III with previous renal artery stenting 6. Hypertension 7. Hyperlipidemia 8. Hypothyroidism 9. Diabetes Plan: The patient was seen and examined at the bedside on the cardiac stepdown unit. He is currently laying in bed in no acute distress. Denies any pain. States his shortness of breath is present with activity. He has been on long-term Plavix, last dose was yesterday. The case will be discussed with Dr. Powers today as well as Dr. Guaman tomorrow for further treatment recommendations. Of note, any surgical intervention would require the patient to be off Plavix for several days to reduce the risk of bleeding. This was discussed with the patient and with pulmonology. Continue medical management of other comorbidities per primary care service. More recommendations to follow. Thank you Dr. Leonard for this consult. We look forward to working with you in the care of your patient. Time with Patient: Greater than 30
[2019-02-03 16:38] LABS: Glucose,Whole Blood 205 mg/dL (75-99)
[2019-02-03 20:31] LABS: Glucose,Whole Blood 230 mg/dL (75-99)
[2019-02-03] MEDS: ATORVASTATIN 20 MG TAB PO SCH (21:03)
[2019-02-03] MEDS: INSULIN DETEMIR (LEVEMIR) 100 UNIT/ML SYR SQ SCH (21:03)
[2019-02-04 06:09] LABS: Glucose,Whole Blood 87 mg/dL (75-99)
[2019-02-04] MEDS: INSULIN ASPART (NovoLOG) 100 UNIT/ML VIAL SQ SCH ×4 (06:32→21:18)
[2019-02-04] MEDS: LEVOTHYROXINE 25 MCG TAB PO SCH (06:32)
[2019-02-04] MEDS: glipiZIDE 5 MG TAB PO SCH ×2 (08:22→17:40)
[2019-02-04] MEDS: hydrALAZINE HCL 25 MG TAB PO SCH ×3 (08:31→21:18)
[2019-02-04] MEDS: amLODIPine 5 MG TAB PO SCH ×2 (08:31→21:18)
--- NOTE | 2019-02-04 09:57 | CT ---
EXAMINATION TYPE: CT chest wo con DATE OF EXAM: 02/04/2019 COMPARISON: 01/12/2019 HISTORY: recurrent Rt pleural effusion CT DLP: 334.[address] of the chest was performed with lung and mediastinal window settings submitted. The la ck of contrast limits evaluation of the vascular, mediastinal and parenchymal structures including th e upper abdomen. LUNGS: Persistent pleural thickening throughout the right lung with increasing right perihilar and ri ght lower lobe infiltrate and/or atelectasis. Underlying mass is difficult to exclude. Redemonstrated is a large right-sided pleural effusion with maximal AP dimension of approximately 9.4 cm versus 9.0 cm previously. The left lung is clear. MEDIASTINUM/BILLY: Thoracic aorta is of normal caliber with limited evaluation given lack of contras t. The heart is not enlarged. No evidence for mediastinal mass. No lymph nodes greater than 1cm. UPPER ABDOMEN: Atrophic change left kidney. Right renal cysts. Splenic and hepatic granulomas. Paraes ophageal hiatal hernia. OTHER: No significant other abnormality. IMPRESSION: 1. Persistent pleural thickening throughout the right lung with increasing right perihilar and right lower lobe infiltrate and/or atelectasis. Underlying mass is difficult to exclude. Redemonstrated is a large right-sided pleural effusion with maximal AP dimension of approximately 9.4 cm versus 9.0 cm previously.
--- NOTE | 2019-02-04 10:39 | P.PN ---
Subjective Progress Note Date: 02/04/19 Principal diagnosis: Recurrent right-sided pleural effusion, status post multiple thoracentesis and placement and removal of right Pleurx catheter, all pleural fluid cytology has b een negative for malignancy, positive for reactive mesothelial cells. Past medical history significant for chronic obstructive pulmonary disease with home oxygen use, history of tobacco dependence, coronary artery disease with previous stenting, chronic kidney disease stage III with previous renal stenting, hypertension, hyperlipidemia, hypothyroid and diabetes mellitus type 2. The patient is sitting up to the bedside chair on the cardiac stepdown unit. He is in no acute distress. He denies any complaints of pain at this time although reports he continues to have episodes of shortness of breath with minimal activity. The patient's states that his shortness of breath has really never go ne away since his Pleurx catheter was placed. Oxygen saturations are 92% on 3 L nasal cannula. Interventional radiology has been consulted yesterday to place a right sided pigtail chest tube although due to the patient's Plavix it was recommended to hold his Plavix for 5 days prior to his pigtail catheter insertion. He remains afebrile and is currently nothing by mouth. Objective - Vital Signs Vital signs: Vital Signs Temp 97.5 F L 02/04/19 08:00 Pulse 91 02/04/19 08:00 Resp 20 02/04/19 08:00 BP 141/75 02/04/19 08:00 Pulse Ox 92 L 02/04/19 08:00 Intake & Output 02/03/19 02/04/19 02/04/19 18:59 06:59 18:59 Intake Total 600 20 10 Output Total 450 Balance 600 -430 10 Weight 70.1 kg Intake: IV 20 10 Invasive Line 1 20 10 Oral 600 Output: Urine 450 Other: Voiding Method Toilet Toilet # Voids 1 1 - Constitutional Constitutional Comment(s): Chronically ill General appearance: Present: cooperative, no acute distress - Respiratory Details: Lungs sounds essentially diminished bilaterally, right greater than left. Respi rations are symmetrical and nonlabored. Oxygen saturation are 92% on 3 L nasal cannula. - Cardiovascular Details: Regular rhythm with tachycardic rate. S1 and S2 present, negative for S3, gallop or murmur. Remote telemetry showing sinus tachycardia heart rate 105. +1 edema to his bilateral lower extremities. - Gastrointestinal Gastrointestinal Comment(s): Abdomen is soft, nontender and nondistended. Active bowel sounds present all 4 abdominal quadrants. No guarding or rigidity. No organomegaly appreciated. - Integumentary Integumentary Comment(s): Skin is warm and dry. No clubbing or cyanosis is present. No rash or abnormal pigmentation is present. - Neurologic Neurologic: Present: CNII-XII intact - Musculoskeletal Musculoskeletal: Present: gait normal, generalized weakness, strength equal bilaterally - Psychiatric Psychiatric: Present: A&O x's 3, appropriate affect, intact judgment & insight - Allied health notes Allied health notes reviewed: nursing - Labs CBC & Chem 7: 02/03/19 05:38 02/03/19 05:38 Labs: Abnormal Lab Results - Last 24 Hours (Table) 02/03/19 02/03/19 02/03/19 Range/Units 11:48 16:36 20:30 POC Glucose (mg/dL) 136 H 205 H 230 H (75-99) mg/dL - Imaging and Cardiology Chest x-ray: report reviewed, image reviewed CT scan - chest: report reviewed, image reviewed Assessment and Plan Assessment: 1. Recurrent right-sided pleural effusion, status post multiple thoracentesis, status post Pleurx catheter placement on 12/11/2018 with removal on 01/08/2019, all cytology negative for malignancy, positive for reactive mesothelial cells 2. Previous tobacco dependence 3. COPD on home oxygen therapy 4. Coronary artery disease with previous stenting 5. Chronic kidney disease stage III with previous renal artery stenting 6. Hypertension 7. Hyperlipidemia 8. Hypothyroidism 9. Diabetes Plan: 1. We will obtain a computed tomography scan without contrast of his chest today. 2. Oxygen and bronchodilator management per pulmonary medicine recommendations. 3. Encourage use of his incentive spirometry every hour while awake. 4. Medical management and other comorbidities per primary care service. 6. Once the computed tomography scan of his chest has been obtained and has been reviewed by Dr. Guaman more recommendations to follow based on patient's clinical course. Time with Patient: Greater than 30
--- NOTE | 2019-02-04 10:47 | XR ---
EXAMINATION TYPE: XR chest 1V portable DATE OF EXAM: 02/04/2019 HISTORY: Shortness of breath. COMPARISON: 02/02/2019 TECHNIQUE: Single view of the chest is submitted. FINDINGS: large right-sided pleural effusion redemonstrated without significant interval change. Left lung is c lear. Infiltrate mass or atelectasis difficult to exclude. The heart is stable. Hilar and mediastinal structures are within normal limits. Degenerative changes are seen of the dorsal spine. IMPRESSION: 1. Stable chest with large right-sided pleural effusion.
--- NOTE | 2019-02-04 11:13 | P.PN ---
Subjective Progress Note Date: 02/04/19 Principal diagnosis: This is a 84-year-old male patient who is known to us from his previous admission for large right-sided pleural effusion, with previous thoracentesis on 10/29/2018 removal of 1950 mL of dark pleural fluid, which was exudative, however the cytology was negative, alters were also negative. On 11/20/2018 patient underwent bronchoscopy with BAL airway examination, which did not show any endobronchial disease and cytology of the bronchial washing was negative. Patient had a reaccumulation of the right sided pleural effusion and was referred to thoracic surgery. A Pleurx catheter was placed in the right pleural space by Dr. Guaman on 12/11/2018, but because of decreased drainage, it was removed on January 08. Cytology of the pleural fluid collected on the day of the Pleurx catheter insertion was again negative. Most recently patient had a follow-up appointment with Dr. Rivas 01/12/2019 and patient was complaining of shortness of breath and for this reason CT angios chest was completed a large right-sided pleural effusion, right lower lobe volume loss, Infiltrate or a mass difficult to exclude, right-sided pleural thickening was also noted. No mediastinal mass or lymphadenopathy greater than 1 cm, there were calcified hilar mediastinal lymph nodes. Other medical history includes diabetes mellitus II with peripheral neuropathy, hypertension, hyperlipidemia, hypothyroidism, osteoarthritis, coronary artery disease with previous stenting, COPD, and patient is a former smoker, his history of TIA. Patient came into the emergency department on 02/02/2019 with complaints of worsening shortness of breath. He had a right-sided ultrasound-guided thoracentesis by interventional radiology on 01/22/2019 and approximately 600 mL of serous pleural fluid was removed and sent for analysis, cytology was negative, fluid analysis revealed exudative fluid LDH of 387, pleural fluid total protein of 3.9, and serum protein of 7.0. Chest x-ray was completed showing overall stable findings, on a Emphysematous changes and cardiomegaly with persistent small to moderate right-sided pleural effusion and associated right lower lung mass like consolidation and/or atelectasis. Chest x-ray was not significantly different from his most recent chest x-ray after his right- sided thoracentesis on 01/22/2019. Ultrasound of the chest showed 8.1 cm fluid pocket on the right. Previous echocardiogram in October 2018 showed preserved left ventricular systolic function with an EF of 60-65% without significant valvular abnormalities and a moderate pulmonary hypertension. EKG showed normal sinus rhythm without acute ischemic changes, troponin was negative. Patient denies any fever, chills, denies any cough or congestion, denied any chest pain or palpitations, no nausea, no vomiting or diarrhea. Having severe exertional dyspnea. He is currently on 3 L of oxygen with a pulse ox of 99%, increased wheezing. On 02/03/2019 patient seen in follow-up on selective care unit. Interventional radiology was consulted yesterday for right-sided pigtail chest tube insertion however they recommended Plavix to be held for 5 days. Patient is Alert, and si tting up on the edge of the bed today, he is having shortness of breath on exertion and at times at rest, and intermittent pain in his right torso. He is on 3 L of oxygen with a pulse ox of 97%, he is afebrile, hemodynamically stable, Plavix was held today. We will consult the cardiothoracic surgery for placement of a Pleurx catheter, and possible biopsies. On 02/04/2019 patient seen in follow-up on selective care unit, he is awake and alert, mildly tachypneic, and short of breath at rest, but no acute distress, pulse ox is 92% on 3 L, hemodynamically stable, he denies any chest pain. His Plavix remains on hold, and patient will be seen by surgery today for possibility of right-sided Pleurx catheter placement. CT chest without contrast was completed yesterday showing persistent pleural thickening throughout the right lung with increasing right. Hilar and right lower lobe infiltrate and or atelectasis. Underlying mass was difficult to exclude, and redemonstrated a large right-sided pleural effusion. Objective - Vital Signs Vital signs: Vital Signs Temp 97.5 F L 02/04/19 08:00 Pulse 91 02/04/19 08:00 Resp 20 02/04/19 08:00 BP 141/75 02/04/19 08:00 Pulse Ox 92 L 02/04/19 08:00 Intake & Output 02/03/19 02/04/19 02/04/19 18:59 06:59 18:59 Intake Total 600 20 10 Output Total 450 Balance 600 -430 10 Weight 70.1 kg Intake: IV 20 10 Invasive Line 1 20 10 Oral 600 Output: Urine 450 Other: Voiding Method Toilet Toilet # Voids 1 1 - Exam GENERAL EXAM: Alert, pleasant, 84-year-old white male, on 3 L of oxygen, dyspneic and bronchospastic HEAD: Normocephalic/atraumatic. EYES: Normal reaction of pupils, equal size. Conjunctiva pink, sclera white. NOSE: Clear with pink turbinates. THROAT: No erythema or exudates. NECK: No masses, no JVD, no thyroid enlargement, no adenopathy. CHEST: No chest wall deformity. Symmetrical expansion. LUNGS: Equal air entry with diminished breath sounds over right mid and lower lobe, and diffuse wheezes CVS: Regular rate and rhythm, normal S1 and S2, no gallops, no murmurs, no rubs ABDOMEN: Soft, nontender. No hepatosplenomegaly, normal bowel sounds, no guarding or rigidity. EXTREMITIES: No clubbing, 1+ edema, no cyanosis, 2+ pulses and upper and lower extremities. MUSCULOSKELETAL: Muscle strength and tone normal. SPINE: No scoliosis or deformity SKIN: No rashes CENTRAL NERVOUS SYSTEM: Alert and oriented -3. No focal deficits, tone is n ormal in all 4 extremities. PSYCHIATRIC: Alert and oriented -3. Appropriate affect. Intact judgment and insight. - Labs CBC & Chem 7: 02/03/19 05:38 02/03/19 05:38 Labs: Abnormal Lab Results - Last 24 Hours (Table) 02/03/19 02/03/19 02/03/19 Range/Units 11:48 16:36 20:30 POC Glucose (mg/dL) 136 H 205 H 230 H (75-99) mg/dL Assessment and Plan Plan: Assessment: #1. Dyspnea related to recurrent right-sided pleural effusion, with previous history of right-sided thoracentesis and Pleurx catheter placement with subsequent removal. Pleural fluid was found to be exudative, however cytology and cultures were negative. Patient had a bronchoscopy on 11/20/2018 with no evidence of endobronchial disease, and bronchial lavage cytology was negative #2. Recent history of right-sided thoracentesis on 01/22/2019 with removal of 600 mL of serous pleural fluid, exudative in nature, and cytology and cultures were negative #3. Placement of a right-sided Pleurx catheter subsequent removal in view of decreased pleural fluid drainage #4. COPD #5. Previous history of smoking, in remission, patient does carry 35 years of smoking history #6. Acute kidney injury #7. Coronary artery disease, with previous stenting #8. Diabetes mellitus type 2 with diabetic neuropathy #9. Hypertension #10. Hyperlipidemia #11. Hypothyroidism #12. Diverticulosis Plan: Awaiting input from the cardiothoracic surgery in terms of Pleurx catheter insertion. Plavix remains on hold. Vital signs are stable, patient is having increased shortness of breath, but no acute distress. Patient is nothing by mouth for possibility of Pleurx catheter insertion today. I performed a history & physical examination of the patient and discussed their management with my nurse practitioner, Mireille Tillman. I reviewed the nurse practitioner's note and agree with the documented findings and plan of care. Lung sounds are positive for diffuse wheezes throughout the lung amaro. The findings and the impression was discussed with the patient. I attest to the documentation by the nurse practitioner. Time with Patient: Less than 30
[2019-02-04 11:45] LABS: Glucose,Whole Blood 74 mg/dL (75-99)
--- NOTE | 2019-02-04 14:40 | P.PN ---
Subjective Progress Note Date: 02/04/19 Principal diagnosis: The patient is a 84-year-old male patient of Dr. Lucas with a past medical history of chronic respiratory failure on 3-4 L at baseline , COPD and former smoker, coronary artery disease with stenting 3, essential hypertension, type 2 diabetes with peripheral neuropathy, renal artery stenosis with stenting who presents to the ER with chief complaint of worsening shortness of breath and cough.the patient was admitted with dyspnea due to recurrent idiopathicright-sided pleural effusion previously worked up with pleural fluid analysis did not point to any causative etiology. pulmonary was consulted who recommended iron replacement of a pigtail chest tube for drainage of the pleural fluid 02/03. patient's and examined at bedside present, reporting that his breathing is better has been up and ambulatory to the restroom and back, reports decreased swelling in his lower extremities. no acute events overnight Objective - Vital Signs Vital signs: Vital Signs Temp 97.5 F L 02/04/19 08:00 Pulse 91 02/04/19 08:00 Resp 20 02/04/19 08:00 BP 141/75 02/04/19 08:00 Pulse Ox 92 L 02/04/19 08:00 Intake & Output 02/03/19 02/04/19 02/04/19 18:59 06:59 18:59 Intake Total 600 20 10 Output Total 450 Balance 600 -430 10 Weight 70.1 kg Intake: IV 20 10 Invasive Line 1 20 10 Oral 600 Output: Urine 450 Other: Voiding Method Toilet Toilet # Voids 1 1 - Exam Constitutional: No acute distress, conversant, pleasant Eyes: Anicteric sclerae, moist conjunctiva, no lid-lag, PERRLA ENMT: NC/AT,Oropharynx clear, no erythema, exudates Neck:Supple, FROM, no masses, or JVD, No carotid bruits; No thyromegaly Lungs: diminished in the right middle and lower lung amaro, increased dullness to percussion, clear to auscultation on the left Cardiovascular: Heart regular in rate and rhythm, No murmurs, gallops, or rubs, +1 peripheral edema Abdominal: Soft Nontender, nom distended, no guarding, no rebound or rigidity, Normoactive bowel sounds No hepatomegaly, No splenomegaly, No palpable mass No abdominal wall hernia noted Skin: Normal temperature, tone, texture, turgor, No induration No subcutaneous nodules, No rash, lesions, No ulcers Extremities:No digital cyanosis No clubbing, Pedal pulses intact and symmetrical Radial pulses intact and symmetrical Normal gait and station, No calf tenderness Psychiatric: Alert and oriented to person, place and time, Appropriate affect Intact judgement Neuro: Muscles Strength 5/5 in all 4 extremities, Sensation to light touch grossly present throughout, Cranial nerves II-XII grossly intact. No focal sensory deficits - Labs CBC & Chem 7: 02/03/19 05:38 02/03/19 05:38 Labs: Abnormal Lab Results - Last 24 Hours (Table) 02/03/19 02/03/19 02/04/19 Range/Units 16:36 20:30 11:42 POC Glucose (mg/dL) 205 H 230 H 74 L (75-99) mg/dL Assessment and Plan Assessment: Recurrent right-sided pleural effusion * History of bronchoscopy 11/20 with no evidence of endobronchial disease, nothing by mouth negative cytology * Prior thoracentesis 01/22 pleural analysis exudative with cytology and cultures negative * Plan for right sided pigtail catheter placement later recommendations to hold Plavix for 5 days prior to insertion * Appreciate pulmonary recommendations * Evaluated by cardiothoracic surgery chronic respiratory failure * Continue on supplemental oxygen at 3 L * Dyspnea * Secondary to recurrent right-sided pleural effusion Essential hypertension * Blood pressure stable and controlled * Continue current regimen Type 2 diabetes with hyperglycemia * Blood sugar stable and controlled continue current regimen Coronary artery disease with stenting * Stable asymptomatic COPD without acute exacerbation Stable asymptomatic CKD stage III in the setting of Renal artery stenosis with stent with atrophic Left Kidney
[2019-02-04] MEDS: HYDROCHLOROTHIAZIDE 25 MG TAB PO SCH (15:22)
[2019-02-04] MEDS: LINAGLIPTIN 5 MG TABLET PO SCH (15:22)
[2019-02-04] MEDS: MULTIVITAMINS, THERA 1 EACH TAB PO SCH (15:22)
[2019-02-04 16:58] LABS: Glucose,Whole Blood 205 mg/dL (75-99)
[2019-02-04 21:13] LABS: Glucose,Whole Blood 252 mg/dL (75-99)
[2019-02-04] MEDS: ATORVASTATIN 20 MG TAB PO SCH (21:18)
[2019-02-04] MEDS: INSULIN DETEMIR (LEVEMIR) 100 UNIT/ML SYR SQ SCH (21:19)
[2019-02-05 06:28] LABS: Glucose,Whole Blood 80 mg/dL (75-99)
[2019-02-05] MEDS: INSULIN ASPART (NovoLOG) 100 UNIT/ML VIAL SQ SCH ×4 (06:30→20:19)
[2019-02-05] MEDS: glipiZIDE 5 MG TAB PO SCH ×2 (06:51→17:09)
[2019-02-05] MEDS: LEVOTHYROXINE 25 MCG TAB PO SCH (06:51)
[2019-02-05] MEDS: LINAGLIPTIN 5 MG TABLET PO SCH (08:39)
[2019-02-05] MEDS: amLODIPine 5 MG TAB PO SCH ×2 (08:39→20:19)
[2019-02-05] MEDS: HYDROCHLOROTHIAZIDE 25 MG TAB PO SCH (08:39)
[2019-02-05] MEDS: MULTIVITAMINS, THERA 1 EACH TAB PO SCH (08:39)
[2019-02-05] MEDS: hydrALAZINE HCL 25 MG TAB PO SCH ×3 (08:39→20:19)
--- NOTE | 2019-02-05 09:33 | P.PN ---
Subjective Progress Note Date: 02/05/19 Principal diagnosis: Recurrent right-sided pleural effusion. Previous medical history of recurrent right-sided pleural effusion with placement of Pleurx catheter 12/11/2018 and re moval 01/08/2019, COPD on home oxygen therapy, previous tobacco dependence, coronary artery disease with previous stenting, chronic kidney disease stage III with previous renal artery stenting, hypertension, hyperlipidemia, hypothyroidism, and diabetes The patient's currently sitting up in the recliner in no acute distress. Does continue to complain of shortness of breath with activity, denies any pain. No new complaints. Objective - Vital Signs Vital signs: Vital Signs Temp 98.8 F 02/05/19 04:30 Pulse 88 02/05/19 04:30 Resp 20 02/05/19 08:13 BP 165/75 02/05/19 04:30 Pulse Ox 97 02/05/19 04:30 Intake & Output 02/04/19 02/05/19 02/05/19 18:59 06:59 18:59 Intake Total 232 10 240 Output Total 300 Balance 232 -290 240 Weight 71.4 kg Intake: IV 10 10 Invasive Line 1 10 10 Oral 222 240 Output: Urine 300 Other: Voiding Method Toilet Toilet Toilet # Voids 1 1 - Constitutional General appearance: Present: cooperative, no acute distress - Respiratory Details: Lungs sounds diminished bilaterally, right greater than left. Respirations even, nonlabored. Currently on 3 L nasal cannula with oxygen saturation 95%. - Cardiovascular Details: S1, S2 present. Regular rate and rhythm, sinus rhythm on telemetry. Palpable peripheral pulses bilaterally. 1-2+ bilateral lower extremity edema present, right greater than left. No calf pain or tenderness noted. - Gastrointestinal Gastrointestinal Comment(s): Abdomen soft, nontender, nondistended. Active bowel sounds present 4 quadrants. Tolerating diet. Positive bowel movement - Genitourinary Genitourinary Comment(s): Continues to void - Integumentary Integumentary Comment(s): Skin is warm and dry with evidence of good perfusion - Neurologic Neurologic: Present: CNII-XII intact - Musculoskeletal Musculoskeletal: Present: gait normal, strength equal bilaterally - Psychiatric Psychiatric: Present: A&O x's 3, appropriate affect, intact judgment & insight - Allied health notes Allied health notes reviewed: nursing - Labs CBC & Chem 7: 02/03/19 05:38 02/03/19 05:38 Labs: Abnormal Lab Results - Last 24 Hours (Table) 02/04/19 02/04/19 02/04/19 Range/Units 11:42 16:57 21:11 POC Glucose (mg/dL) 74 L 205 H 252 H (75-99) mg/dL Assessment and Plan Assessment: 1. Recurrent right-sided pleural effusion, status post multiple thoracentesis, status post Pleurx catheter placement on 12/11/2018 with removal on 01/08/2019, all cytology negative for malignancy, positive for reactive mesothelial cells 2. Previous tobacco dependence 3. COPD on home oxygen therapy 4. Coronary artery disease with previous stenting 5. Chronic kidney disease stage III with previous renal artery stenting 6. Hypertension 7. Hyperlipidemia 8. Hypothyroidism 9. Diabetes Plan: 1. No surgical intervention at this time. Recommend thoracentesis versus pigtail catheter placement at the discretion of pulmonology 2. Continue oxygen per home regimen, bronchodilators per pulmonology 3. Incentive spirometry ordered, encourage use 4. Medical management of other comorbidities per primary care service 5. We will continue to see patient on an as-needed basis Time with Patient: Greater than 30
--- NOTE | 2019-02-05 10:18 | P.PN ---
Subjective Progress Note Date: 02/05/19 Principal diagnosis: This is a 84-year-old male patient who is known to us from his previous admission for large right-sided pleural effusion, with previous thoracentesis on 10/29/2018 removal of 1950 mL of dark pleural fluid, which was exudative, however the cytology was negative, alters were also negative. On 11/20/2018 patient underwent bronchoscopy with BAL airway examination, which did not show any endobronchial disease and cytology of the bronchial washing was negative. Patient had a reaccumulation of the right sided pleural effusion and was referred to thoracic surgery. A Pleurx catheter was placed in the right pleural space by Dr. Guaman on 12/11/2018, but because of decreased drainage, it was removed on January 08. Cytology of the pleural fluid collected on the day of the Pleurx catheter insertion was again negative. Most recently patient had a follow-up appointment with Dr. Rivas 01/12/2019 and patient was complaining of shortness of breath and for this reason CT angios chest was completed a large right-sided pleural effusion, right lower lobe volume loss, Infiltrate or a mass difficult to exclude, right-sided pleural thickening was also noted. No mediastinal mass or lymphadenopathy greater than 1 cm, there were calcified hilar mediastinal lymph nodes. Other medical history includes diabetes mellitus II with peripheral neuropathy, hypertension, hyperlipidemia, hypothyroidism, osteoarthritis, coronary artery disease with previous stenting, COPD, and patient is a former smoker, his history of TIA. Patient came into the emergency department on 02/02/2019 with complaints of worsening shortness of breath. He had a right-sided ultrasound-guided thoracentesis by interventional radiology on 01/22/2019 and approximately 600 mL of serous pleural fluid was removed and sent for analysis, cytology was negative, fluid analysis revealed exudative fluid LDH of 387, pleural fluid total protein of 3.9, and serum protein of 7.0. Chest x-ray was completed showing overall stable findings, on a Emphysematous changes and cardiomegaly with persistent small to moderate right-sided pleural effusion and associated right lower lung mass like consolidation and/or atelectasis. Chest x-ray was not significantly different from his most recent chest x-ray after his right- sided thoracentesis on 01/22/2019. Ultrasound of the chest showed 8.1 cm fluid pocket on the right. Previous echocardiogram in October 2018 showed preserved left ventricular systolic function with an EF of 60-65% without significant valvular abnormalities and a moderate pulmonary hypertension. EKG showed normal sinus rhythm without acute ischemic changes, troponin was negative. Patient denies any fever, chills, denies any cough or congestion, denied any chest pain or palpitations, no nausea, no vomiting or diarrhea. Having severe exertional dyspnea. He is currently on 3 L of oxygen with a pulse ox of 99%, increased wheezing. On 02/03/2019 patient seen in follow-up on selective care unit. Interventional radiology was consulted yesterday for right-sided pigtail chest tube insertion however they recommended Plavix to be held for 5 days. Patient is Alert, and si tting up on the edge of the bed today, he is having shortness of breath on exertion and at times at rest, and intermittent pain in his right torso. He is on 3 L of oxygen with a pulse ox of 97%, he is afebrile, hemodynamically stable, Plavix was held today. We will consult the cardiothoracic surgery for placement of a Pleurx catheter, and possible biopsies. On 02/04/2019 patient seen in follow-up on selective care unit, he is awake and alert, mildly tachypneic, and short of breath at rest, but no acute distress, pulse ox is 92% on 3 L, hemodynamically stable, he denies any chest pain. His Plavix remains on hold, and patient will be seen by surgery today for possibility of right-sided Pleurx catheter placement. CT chest without contrast was completed yesterday showing persistent pleural thickening throughout the right lung with increasing right. Hilar and right lower lobe infiltrate and or atelectasis. Underlying mass was difficult to exclude, and redemonstrated a large right-sided pleural effusion. On 02/05/2019 patient seen in follow-up on selective care unit, he sitting up in the chair, he is tachypneic, with a rate between 20 and 24 breaths per minute, shallow respirations, dyspneic with conversation. He is on 3 L of oxygen, with pulse ox of 97%, he is afebrile, no complaints of chest pain, lung sounds reveal diminished breath sounds on the right side. he was seen by CT surgery, and CT surgery felt that patient would be a high risk for decortication surgery, and that the patient did not feel any better with the Pleurx catheter when it was in. Plavix has been on hold, and we will proceed with right-sided thoracentesis today Objective - Vital Signs Vital signs: Vital Signs Temp 98.8 F 02/05/19 04:30 Pulse 88 02/05/19 04:30 Resp 20 02/05/19 08:13 BP 165/75 02/05/19 04:30 Pulse Ox 97 02/05/19 04:30 Intake & Output 02/04/19 02/05/19 02/05/19 18:59 06:59 18:59 Intake Total 232 10 240 Output Total 300 Balance 232 -290 240 Weight 71.4 kg Intake: IV 10 10 Invasive Line 1 10 10 Oral 222 240 Output: Urine 300 Other: Voiding Method Toilet Toilet Toilet # Voids 1 1 - Exam GENERAL EXAM: Alert, pleasant, 84-year-old white male, on 3 L of oxygen, dyspneic and bronchospastic HEAD: Normocephalic/atraumatic. EYES: Normal reaction of pupils, equal size. Conjunctiva pink, sclera white. NOSE: Clear with pink turbinates. THROAT: No erythema or exudates. NECK: No masses, no JVD, no thyroid enlargement, no adenopathy. CHEST: No chest wall deformity. Symmetrical expansion. LUNGS: Equal air entry with diminished breath sounds over right mid and lower lobe, and diffuse wheezes CVS: Regular rate and rhythm, normal S1 and S2, no gallops, no murmurs, no rubs ABDOMEN: Soft, nontender. No hepatosplenomegaly, normal bowel sounds, no guarding or rigidity. EXTREMITIES: No clubbing, 1+ edema, no cyanosis, 2+ pulses and upper and lower extremities. MUSCULOSKELETAL: Muscle strength and tone normal. SPINE: No scoliosis or deformity SKIN: No rashes CENTRAL NERVOUS SYSTEM: Alert and oriented -3. No focal deficits, tone is normal in all 4 extremities. PSYCHIATRIC: Alert and oriented -3. Appropriate affect. Intact judgment and insight. - Labs CBC & Chem 7: 02/03/19 05:38 02/03/19 05:38 Labs: Abnormal Lab Results - Last 24 Hours (Table) 02/04/19 02/04/19 02/04/19 Range/Units 11:42 16:57 21:11 POC Glucose (mg/dL) 74 L 205 H 252 H (75-99) mg/dL Assessment and Plan Plan: Assessment: #1. Dyspnea related to recurrent right-sided pleural effusion, with previous history of right-sided thoracentesis and Pleurx catheter placement with subsequent removal. Pleural fluid was found to be exudative, however cytology and cultures were negative. Patient had a bronchoscopy on 11/20/2018 with no evidence of endobronchial disease, and bronchial lavage cytology was negative #2. Recent history of right-sided thoracentesis on 01/22/2019 with removal of 600 mL of serous pleural fluid, exudative in nature, and cytology and cultures were negative #3. Placement of a right-sided Pleurx catheter subsequent removal in view of decreased pleural fluid drainage #4. COPD #5. Previous history of smoking, in remission, patient does carry 35 years of smoking history #6. Acute kidney injury #7. Coronary artery disease, with previous stenting #8. Diabetes mellitus type 2 with diabetic neuropathy #9. Hypertension #10. Hyperlipidemia #11. Hypothyroidism #12. Diverticulosis Plan: Discussed the case with cardiothoracic surgery, and there is no plans for Pleurx catheter insertion or decortication surgery as the patient is a high risk for surgery. Plavix has been on hold for last 3 days, we will proceed with right- sided thoracentesis today and fluid will be sent for analysis again. If doing okay afterwards we may consider discharge home today. I performed a history & physical examination of the patient and discussed their management with my nurse practitioner, Mireille Tillman. I reviewed the nurse practitioner's note and agree with the documented findings and plan of care. Lung sounds are positive for diffuse wheezes throughout the lung amaro. The findings and the impression was discussed with the patient. I attest to the documentation by the nurse practitioner. Time with Patient: Less than 30
[2019-02-05 11:59] LABS: Glucose,Whole Blood 256 mg/dL (75-99)
--- NOTE | 2019-02-05 14:55 | CDI ---
Documentation Clarification Form Date: 02/05/2019 2:32:32 PM From: Debbie Lovell RN, CCDS Admit Date: 02/03/2019 10:18:00 AM Patient Name: Ken Alvares Visit Number: [id number] Discharge Date: ATTENTION: The Clinical Documentation Specialists (CDI) and [facility] Coding Staff appreciate your assistance in clarifying documentation. Please respond to the clarification below the line at the bottom and electronically sign. The CDI & [facility] Coding staff will review the response and follow-up if needed. Please note: Queries are made part of the Legal Health Record. If you have any questions, please contact the author of this message via ITS. Dr. Monse Leonard The patient presented with shortness of breath. Chronic respiratory failure was documented in the progress notes on 02/02/[address] Bazan, and further clarification is needed. History/Risk Factors: COPD, Right-sided pleural effusion. Diabetes Mellitus, Hypertension, Tobacco use: Former Smoker Home oxygen: O2@4/L via nasal cannula. Clinical Indicators: 84-year-old male present with difficulty breathing that has gotten progressively worse. He had a prior right chest tube that was removed Jan 2019. He has diminished breath sounds right base. Vital signs: 02/02/19@09:26 140/74 99 28 87 % 3/L NC, 02/03/19: @08:00 145/72 93 22 94 % 3/L NC 02/02 Chest x-ray: Stable findings, on a Emphysematous changes and cardiomegaly with persistent small to moderate right-sided pleural effusion and associated right lower lung mass like consolidation and/or atelectasis 02/04/19@1036: Stable chest with large right-sided pleural effusion. 02/0213:03: Ultrasound of the chest showed 8.1 cm fluid pocket on the right. Treatment: Monitor O2 Sat's (titrate) Chest x-ray per orders Lasix IV x1 In your professional opinion, can you please clarify if these findings signify one of the following conditions? Chronic Respiratory Failure, with hypoxia Acute on Chronic Respiratory Failure, with hypoxia Other Diagnosis, please specify Unable to determine Specificity: If known, further specify (if known): With hypercapnia? (pCO2 >50 and pH <7.35) With hypoxia? (pO2 <60 mm Hg or SpO2 <91% on room air) (Last Query Form Revision: November 2018) MTDD
--- NOTE | 2019-02-05 15:26 | XR ---
EXAMINATION TYPE: XR chest 1V portable DATE OF EXAM: 02/05/2019 COMPARISON: 02/04/2019 INDICATION: Status post thoracentesis TECHNIQUE: Single frontal view of the chest is obtained. FINDINGS: The heart size is normal. The pulmonary vasculature is normal. Moderate right pleural effusion is present. No pneumothorax is evident. Left lung appears clear. IMPRESSION: 1. No pneumothorax post right portal thoracentesis. 2. Moderate right pleural effusion with adjacent compressive atelectasis
[2019-02-05] MEDS: CARVEDILOL 3.125 MG TAB PO SCH (16:09)
[2019-02-05 16:31] LABS: Glucose,Whole Blood 149 mg/dL (75-99)
[2019-02-05 18:33] LABS: Appearance,BF Hazy; Color,BF Orange
[2019-02-05 18:34] LABS: Mononuclear WBC,Body Fluid 59 %; Nucleated Cells, Body Fluid 1250 /uL; Polynuclear WBC,Body Fluid 41 %; RBC, Body Fluid 5950 /uL
--- NOTE | 2019-02-05 18:45 | P.PN ---
Subjective Progress Note Date: 02/05/19 Principal diagnosis: The patient is a 84-year-old male patient of Dr. Lucas with a past medical history of chronic respiratory failure on 3-4 L at baseline , COPD and former smoker, coronary artery disease with stenting 3, essential hypertension, type 2 diabetes with peripheral neuropathy, renal artery stenosis with stenting who presents to the ER with chief complaint of worsening shortness of breath and cough.the patient was admitted with dyspnea due to recurrent idiopathicright-sided pleural effusion previously worked up with pleural fluid analysis did not point to any causative etiology. pulmonary was consulted who recommended iron replacement of a pigtail chest tube for drainage of the pleural fluid 02/03. Patient evaluated pre-and post thoracentesis now having discomfort but refusing to take anything for pain suggested Tylenol patient even refusing Tylenol or ibuprofen, reports that his breathing is not improved. Continues to be tacypneic , chest x-ray postthoracentesis showing no pneumothorax, moderate right pleural effusion still present with adjacent compressive atelectasis. No acute events overnight Objective - Vital Signs Vital signs: Vital Signs Temp 98.3 F 02/05/19 11:24 Pulse 92 02/05/19 16:08 Resp 22 02/05/19 16:08 BP 181/78 02/05/19 16:08 Pulse Ox 96 02/05/19 16:08 Intake & Output 02/04/19 02/05/19 02/05/19 18:59 06:59 18:59 Intake Total 232 10 720 Output Total 300 Balance 232 -290 720 Weight 71.4 kg Intake: IV 10 10 Invasive Line 1 10 10 Oral 222 720 Output: Urine 300 Other: Voiding Method Toilet Toilet Toilet # Voids 1 1 1 - Exam Constitutional: No acute distress, conversant, pleasant Eyes: Anicteric sclerae, moist conjunctiva, no lid-lag, PERRLA ENMT: NC/AT,Oropharynx clear, no erythema, exudates Neck:Supple, FROM, no masses, or JVD, No carotid bruits; No thyromegaly Lungs: diminished in the right middle and lower lung amaro, increased dullness to percussion, clear to auscultation on the left Cardiovascular: Heart regular in rate and rhythm, No murmurs, gallops, or rubs, +1 peripheral edema Abdominal: Soft Nontender, nom distended, no guarding, no rebound or rigidity, Normoactive bowel sounds No hepatomegaly, No splenomegaly, No palpable mass No abdominal wall hernia noted Skin: Normal temperature, tone, texture, turgor, No induration No subcutaneous nodules, No rash, lesions, No ulcers Extremities:No digital cyanosis No clubbing, Pedal pulses intact and symmetrical Radial pulses intact and symmetrical Normal gait and station, No calf tenderness Psychiatric: Alert and oriented to person, place and time, Appropriate affect Intact judgement Neuro: Muscles Strength 5/5 in all 4 extremities, Sensation to light touch grossly present throughout, Cranial nerves II-XII grossly intact. No focal sensory deficits - Labs CBC & Chem 7: 02/03/19 05:38 02/03/19 05:38 Labs: Abnormal Lab Results - Last 24 Hours (Table) 02/04/19 02/05/19 02/05/19 Range/Units 21:11 11:42 16:21 POC Glucose (mg/dL) 252 H 256 H 149 H (75-99) mg/dL Assessment and Plan Assessment: Recurrent right-sided pleural effusion * History of bronchoscopy 11/20 with no evidence of endobronchial disease, nothing by mouth negative cytology * Prior thoracentesis 01/22 pleural analysis exudative with cytology and cultures negative * Thoracentesis performed today with approximately 5 50 mL of pleural fluid withdrawn with plans for analysis * Patient really by cardiothoracic surgery and deemed to be too high risk for decortication or Pleurx catheter insertion chronic respiratory failure * Continue on supplemental oxygen at 3 L * Chest x-ray postthoracentesis showing no pneumothorax , moderate right pleural effusion with adjacent compressive atelectasis Dyspnea * Secondary to recurrent right-sided pleural effusion Essential hypertension * Blood pressure stable and controlled * Continue current regimen Type 2 diabetes with hyperglycemia * Blood sugar stable and controlled continue current regimen Coronary artery disease with stenting * Stable asymptomatic COPD without acute exacerbation Stable asymptomatic CKD stage III in the setting of Renal artery stenosis with stent with atrophic Left Kidney Disposition * We'll continue to monitor the patient night anticipated discharge tomorrow
[2019-02-05 20:17] LABS: Glucose,Whole Blood 227 mg/dL (75-99)
[2019-02-05] MEDS: INSULIN DETEMIR (LEVEMIR) 100 UNIT/ML SYR SQ SCH (20:19)
--- NOTE | 2019-02-05 21:43 | P.PN ---
Progress Note - Text Progress Note Date: 02/05/19 patient has chronic hypoxic respiratory failure,multifactorial
[2019-02-06 00:20] LABS: Total Protein, Body Fluid 3362 mg/dL
[2019-02-06 00:38] LABS: Glucose, BF Source Pleural Fluid; Glucose, Body Fluid 82 mg/dL; LDH, Body Fluid Source Pleural Fluid
[2019-02-06 06:08] LABS: Glucose,Whole Blood 78 mg/dL (75-99)
[2019-02-06] MEDS: CARVEDILOL 3.125 MG TAB PO SCH (06:13)
[2019-02-06] MEDS: INSULIN ASPART (NovoLOG) 100 UNIT/ML VIAL SQ SCH ×2 (06:13→12:05)
[2019-02-06] MEDS: glipiZIDE 5 MG TAB PO SCH (06:13)
[2019-02-06] MEDS: LEVOTHYROXINE 25 MCG TAB PO SCH (06:13)
--- NOTE | 2019-02-06 06:45 | PCN ---
PROCEDURE NOTE PROCEDURE PERFORMED: Right-sided thoracentesis. PREOPERATIVE DIAGNOSIS: Right pleural effusion/recurrent. POSTOPERATIVE DIAGNOSIS: Right pleural effusion/recurrent. ANESTHESIA USED: 2 mL of 1% lidocaine. PROCEDURE DETAILS: The patient was placed in a sitting upright position, the area below the right scapula was prepared in a sterile fashion and drapes were applied. The area which was earlier localized by ultrasound was locally anesthetized, and then a 26-gauge needle was inserted at the same site, advanced into the pleural space. However, I was not able to reach the pleural space with a needle to localize the fluid with the needle. Then a small tiny incision was made, and a standard thoracentesis catheter and needle were used, I was able to insert the needle and catheter into the same site and advanced into the pleural space until the fluid was obtained. Then the needle was pulled out of the pleural space, and the catheter was advanced into the pleural space. Freely flowing fluid was removed, roughly 550 mL of bilious looking and dark looking fluid was removed from the right pleural space. The patient developed a significant amount of discomfort and pain at the end of the procedure, hence after 550 mL of fluid were removed, the catheter was removed out of the pleural space. The fluid was sent for different diagnostic studies, and chest x-ray postoperatively showed no evidence of pneumothorax, and no postoperative complications. MMODL / IJN: [id number] /
[2019-02-06] MEDS: amLODIPine 5 MG TAB PO SCH (09:10)
[2019-02-06] MEDS: HYDROCHLOROTHIAZIDE 25 MG TAB PO SCH (09:10)
[2019-02-06] MEDS: hydrALAZINE HCL 25 MG TAB PO SCH (09:10)
[2019-02-06] MEDS: LINAGLIPTIN 5 MG TABLET PO SCH (09:10)
[2019-02-06] MEDS: MULTIVITAMINS, THERA 1 EACH TAB PO SCH (09:11)
[2019-02-06 11:45] LABS: Glucose,Whole Blood 133 mg/dL (75-99)
[2019-02-06 11:53] VITALS: BP 149/70; PULSE 87; RESP 30; TEMP 98.4
[2019-02-06] MEDS ORDERED: CLOPIDOGREL 75 MG TAB PO STA (11:57)
--- NOTE | 2019-02-06 14:29 | P.PN ---
Subjective Progress Note Date: 02/06/19 Principal diagnosis: This is a 84-year-old male patient who is known to us from his previous admission for large right-sided pleural effusion, with previous thoracentesis on 10/29/2018 removal of 1950 mL of dark pleural fluid, which was exudative, however the cytology was negative, alters were also negative. On 11/20/2018 patient underwent bronchoscopy with BAL airway examination, which did not show any endobronchial disease and cytology of the bronchial washing was negative. Patient had a reaccumulation of the right sided pleural effusion and was referred to thoracic surgery. A Pleurx catheter was placed in the right pleural space by Dr. Guaman on 12/11/2018, but because of decreased drainage, it was removed on January 08. Cytology of the pleural fluid collected on the day of the Pleurx catheter insertion was again negative. Most recently patient had a follow-up appointment with Dr. Rivas 01/12/2019 and patient was complaining of shortness of breath and for this reason CT angios chest was completed a large right-sided pleural effusion, right lower lobe volume loss, Infiltrate or a mass difficult to exclude, right-sided pleural thickening was also noted. No mediastinal mass or lymphadenopathy greater than 1 cm, there were calcified hilar mediastinal lymph nodes. Other medical history includes diabetes mellitus II with peripheral neuropathy, hypertension, hyperlipidemia, hypothyroidism, osteoarthritis, coronary artery disease with previous stenting, COPD, and patient is a former smoker, his history of TIA. Patient came into the emergency department on 02/02/2019 with complaints of worsening shortness of breath. He had a right-sided ultrasound-guided thoracentesis by interventional radiology on 01/22/2019 and approximately 600 mL of serous pleural fluid was removed and sent for analysis, cytology was negative, fluid analysis revealed exudative fluid LDH of 387, pleural fluid total protein of 3.9, and serum protein of 7.0. Chest x-ray was completed showing overall stable findings, on a Emphysematous changes and cardiomegaly with persistent small to moderate right-sided pleural effusion and associated right lower lung mass like consolidation and/or atelectasis. Chest x-ray was not significantly different from his most recent chest x-ray after his right- sided thoracentesis on 01/22/2019. Ultrasound of the chest showed 8.1 cm fluid pocket on the right. Previous echocardiogram in October 2018 showed preserved left ventricular systolic function with an EF of 60-65% without significant valvular abnormalities and a moderate pulmonary hypertension. EKG showed normal sinus rhythm without acute ischemic changes, troponin was negative. Patient denies any fever, chills, denies any cough or congestion, denied any chest pain or palpitations, no nausea, no vomiting or diarrhea. Having severe exertional dyspnea. He is currently on 3 L of oxygen with a pulse ox of 99%, increased wheezing. On 02/03/2019 patient seen in follow-up on selective care unit. Interventional radiology was consulted yesterday for right-sided pigtail chest tube insertion however they recommended Plavix to be held for 5 days. Patient is Alert, and si tting up on the edge of the bed today, he is having shortness of breath on exertion and at times at rest, and intermittent pain in his right torso. He is on 3 L of oxygen with a pulse ox of 97%, he is afebrile, hemodynamically stable, Plavix was held today. We will consult the cardiothoracic surgery for placement of a Pleurx catheter, and possible biopsies. On 02/04/2019 patient seen in follow-up on selective care unit, he is awake and alert, mildly tachypneic, and short of breath at rest, but no acute distress, pulse ox is 92% on 3 L, hemodynamically stable, he denies any chest pain. His Plavix remains on hold, and patient will be seen by surgery today for possibility of right-sided Pleurx catheter placement. CT chest without contrast was completed yesterday showing persistent pleural thickening throughout the right lung with increasing right. Hilar and right lower lobe infiltrate and or atelectasis. Underlying mass was difficult to exclude, and redemonstrated a large right-sided pleural effusion. On 02/05/2019 patient seen in follow-up on selective care unit, he sitting up in the chair, he is tachypneic, with a rate between 20 and 24 breaths per minute, shallow respirations, dyspneic with conversation. He is on 3 L of oxygen, with pulse ox of 97%, he is afebrile, no complaints of chest pain, lung sounds reveal diminished breath sounds on the right side. he was seen by CT surgery, and CT surgery felt that patient would be a high risk for decortication surgery, and that the patient did not feel any better with the Pleurx catheter when it was in. Plavix has been on hold, and we will proceed with right-sided thoracentesis today. On 02/06/2019 patient seen in follow-up, still tachypneic, but seems to be less short of breath. Vital signs are stable, remains off of liters of oxygen, with a pulse ox of 96%, afebrile, hemodynamically stable, pleural fluid cytology revealed exudative fluid, with fluid LDH of 638, fluid total protein of 3.3 g, and serum protein of 7.4 g/dl. Pleural fluid cultures are pending, cytology is pending, clinical patient remains stable, we'll resume his Plavix and patient ischemic cleared for discharge home today with outpatient follow-up Objective - Vital Signs Vital signs: Vital Signs Temp 98.4 F 02/06/19 11:50 Pulse 87 02/06/19 11:50 Resp 30 H 02/06/19 11:50 BP 149/70 02/06/19 11:50 Pulse Ox 96 02/06/19 11:50 Intake & Output 02/05/19 02/06/19 02/06/19 18:59 06:59 18:59 Intake Total 720 240 Output Total 500 Balance 720 -500 240 Weight 72.2 kg Intake: Oral 720 240 Output: Urine 500 Other: Voiding Method Toilet Toilet Toilet # Voids 1 2 - Exam GENERAL EXAM: Alert, pleasant, 84-year-old white male, on 3 L of oxygen, dyspneic and bronchospastic HEAD: Normocephalic/atraumatic. EYES: Normal reaction of pupils, equal size. Conjunctiva pink, sclera white. NOSE: Clear with pink turbinates. THROAT: No erythema or exudates. NECK: No masses, no JVD, no thyroid enlargement, no adenopathy. CHEST: No chest wall deformity. Symmetrical expansion. LUNGS: Equal air entry with diminished breath sounds over right mid and lower lobe, no wheezes CVS: Regular rate and rhythm, normal S1 and S2, no gallops, no murmurs, no rubs ABDOMEN: Soft, nontender. No hepatosplenomegaly, normal bowel sounds, no guarding or rigidity. EXTREMITIES: No clubbing, 1+ edema, no cyanosis, 2+ pulses and upper and lower extremities. MUSCULOSKELETAL: Muscle strength and tone normal. SPINE: No scoliosis or deformity SKIN: No rashes CENTRAL NERVOUS SYSTEM: Alert and oriented -3. No focal deficits, tone is normal in all 4 extremities. PSYCHIATRIC: Alert and oriented -3. Appropriate affect. Intact judgment and insight. - Labs CBC & Chem 7: 02/03/19 05:38 02/03/19 05:38 Labs: Abnormal Lab Results - Last 24 Hours (Table) 02/05/19 02/05/19 02/06/19 Range/Units 16:21 20:11 11:44 POC Glucose (mg/dL) 149 H 227 H 133 H (75-99) mg/dL Microbiology - Last 24 Hours (Table) 02/05/19 14:35 Gram Stain - Preliminary Pleural Fluid Body Fluid Culture - Preliminary 02/05/19 14:35 Fungal Culture - Preliminary Pleural Fluid 02/05/19 14:35 Acid Fast Bacilli Culture - Preliminary Pleural Fluid 02/05/19 14:35 Anaerobic Culture - Preliminary Pleural Fluid Assessment and Plan Plan: Assessment: #1. Dyspnea related to recurrent right-sided pleural effusion, with previous history of right-sided thoracentesis and Pleurx catheter placement with subsequent removal. Pleural fluid was found to be exudative, however cytology and cultures were negative. Patient had a bronchoscopy on 11/20/2018 with no evidence of endobronchial disease, and bronchial lavage cytology was negative #2. Recent history of right-sided thoracentesis on 01/22/2019 with removal of 600 mL of serous pleural fluid, exudative in nature, and cytology and cultures were negative #3. Placement of a right-sided Pleurx catheter subsequent removal in view of decreased pleural fluid drainage #4. COPD #5. Previous history of smoking, in remission, patient does carry 35 years of smoking history #6. Acute kidney injury #7. Coronary artery disease, with previous stenting #8. Diabetes mellitus type 2 with diabetic neuropathy #9. Hypertension #10. Hyperlipidemia #11. Hypothyroidism #12. Diverticulosis Plan: Patient is clinically stable, still tachypneic but overall breathing better. Vital signs are stable, pleural fluid cytology is pending, analysis revealed exudative fluid. From pulmonary perspective patient came in discharged home today with outpatient follow-up with Dr. Rivas, and patient will likely be referred to a tertiary care center for thoracoscopic lung biopsy diagnostic purposes, if the pleural fluid cytology remains negative I performed a history & physical examination of the patient and discussed their management with my nurse practitioner, Mireille Tillman. I reviewed the nurse practitioner's note and agree with the documented findings and plan of care. Lung sounds are positive for diffuse wheezes throughout the lung amaro. The findings and the impression was discussed with the patient. I attest to the documentation by the nurse practitioner. Time with Patient: Less than 30
--- NOTE | 2019-02-06 18:01 | P.DS ---
Providers Date of admission: 02/03/19 10:18 Expected date of discharge: 02/06/19 Attending physician: Neil Bazan MD Consults: 02/02/19 11:44 Consult Physician Urgent Consulting Provider: Monse Leonard Consult Reason/Comments: Pleural effusion, dyspnea Do you want consulting provider notified?: Yes 02/03/19 12:02 Consult Physician Routine Consulting Provider: Domenico Powers Consult Reason/Comments: recurrent right sided pleural effusion, pleurix cath Do you want consulting provider notified?: Yes Primary care physician: Cathy Rivera MD Hospital Course: Discharge diagnosis Recurrent idiopathic right sided pleural effusion Chronic respiratory failure on home oxygen Essential hypertension Type 2 diabetes with hyperglycemia Current artery disease with stenting COPD without acute exacerbation CK D stage III in the setting of renal artery stenosis with stent with atrophy of left kidney Hospital course The patient is a 84-year-old male patient with chronic respiratory failure on home oxygen at 3 L that presented and was admitted with dyspnea due to recurrent idiopathic right-sided pleural effusion. The patient had previously had bronchoscopy 11/20 with no evidence of endobronchial disease and negative cytology. Recent thoracentesis 01/22 with pleural exudative with cytology and cultures negative. Cardiothoracic surgery was consulted for con sideration to place possible Pleurx catheter or decortication. Patient was evaluated and deemed too high risk for decortication or Pleurx catheter insertion. The patient's Plavix was held for a few days and he subsequently had thoracentesis performed with approximately 550 ml of pleural fluid withdrawn DH of 638, fluid total protein of 3.3 g, and serum protein of 7.4 g/dl. Pleural fluid cultures are pending, cytology is pending. The patient was cleared for discharge with plans for follow-up in pulmonary clinic with Dr. Rivas with plans for referral to a tertiary care center for thorascopic lung biopsy diagnosis if pleural fluid analysis continues to be nondiagnostic. The patient was discharged home in stable condition and told to follow-up with pulmonary. Discharge process took approximately 35 minutes Focused exam Respiratory: Diminished over the right lower and middle lobe, dyspneic with good saturations on 3 L via nasal cannula Patient Condition at Discharge: Good Plan - Discharge Summary Discharge Rx Participant: Yes New Discharge Prescriptions: New Carvedilol [Coreg] 3.125 mg PO BID-W/MEALS #60 tab Continue Vitamin B Complex 1 cap PO DAILY Multivitamins, Thera [Multivitamin (formulary)] 1 tab PO DAILY Linagliptin [Tradjenta] 5 mg PO DAILY Insulin Glargine [Lantus] 22 unit SQ HS Atorvastatin [Lipitor] 20 mg PO HS hydrALAZINE HCL 25 mg PO TID glipiZIDE [Glucotrol] 5 mg PO AC-BID amLODIPine [Norvasc] 5 mg PO BID Hydrochlorothiazide [Hydrodiuril] 25 mg PO DAILY Levothyroxine Sodium [Synthroid] 25 mcg PO DAILY Clopidogrel [Plavix] 75 mg PO DAILY Discharge Medication List Atorvastatin [Lipitor] 20 mg PO HS 10/28/18 [History] Hydrochlorothiazide [Hydrodiuril] 25 mg PO DAILY 10/28/18 [History] Insulin Glargine [Lantus] 22 unit SQ HS 10/28/18 [History] Levothyroxine Sodium [Synthroid] 25 mcg PO DAILY 10/28/18 [History] Linagliptin [Tradjenta] 5 mg PO DAILY 10/28/18 [History] Multivitamins, Thera [Multivitamin (formulary)] 1 tab PO DAILY 10/28/18 [History] Vitamin B Complex 1 cap PO DAILY 10/28/18 [History] amLODIPine [Norvasc] 5 mg PO BID 10/28/18 [History] glipiZIDE [Glucotrol] 5 mg PO AC-BID 10/28/18 [History] hydrALAZINE HCL 25 mg PO TID 10/28/18 [History] Clopidogrel [Plavix] 75 mg PO DAILY 02/02/19 [History] Carvedilol [Coreg] 3.125 mg PO BID-W/MEALS #60 tab 02/06/19 [Rx] Follow up Appointment(s)/Referral(s): Vasquez Rivas DO [Family Provider] - 02/18/19 1:45 pm (February 18, 2019 at 1:45) [facility], [NON-STAFF] - Cathy Rivera MD [Primary Care Provider] - 1-2 days (February 09 at 10:00) Patient Instructions/Handouts: How to Use an Incentive Spirometer (DC), Pleural Effusion (DC), Shortness of Breath (DC) Activity/Diet/Wound Care/Special Instructions: Interventional Radiology will call you after discharge to set up a date/time for your next thoracentesis . Standing order given for thoracentesis every 3 weeks. Hold Plavix 5 days prior to thoracentesis Discharge Disposition: HOME SELF-CARE
[2019-02-07] MEDS ORDERED: CLOPIDOGREL 75 MG TAB PO SCH (09:00)
== END 2019-02-06 14:28 | disposition home health service (06) | DRG 187 ==
LOC: EC 09:16 → 3SCARD 11:45 → OBSVTOIN 02-03 10:18
PROVIDERS: ADMIT Family Medicine; ATTEND Family Medicine
PROC: 0W993ZX Drainage of Right Pleural Cavity, Percutaneous Approach, Diagnostic (ICD-10-PCS; principal; 2019-02-05)
DX: J90 Pleural effusion, not elsewhere classified (principal); J98.11 Atelectasis; N17.9 Acute kidney failure, unspecified; J96.11 Chronic respiratory failure with hypoxia; E11.22 Type 2 diabetes mellitus with diabetic chronic kidney disease; E11.42 Type 2 diabetes mellitus with diabetic polyneuropathy; E11.65 Type 2 diabetes mellitus with hyperglycemia; J44.9 Chronic obstructive pulmonary disease, unspecified; I27.20 Pulmonary hypertension, unspecified; I70.1 Atherosclerosis of renal artery; N18.3 Chronic kidney disease, stage 3 (moderate); E78.5 Hyperlipidemia, unspecified; E03.9 Hypothyroidism, unspecified; I12.9 Hypertensive chronic kidney disease with stage 1 through stage 4 chronic kidney disease, or unspecified chronic kidney disease; I25.10 Atherosclerotic heart disease of native coronary artery without angina pectoris; K57.90 Diverticulosis of intestine, part unspecified, without perforation or abscess without bleeding; M19.90 Unspecified osteoarthritis, unspecified site; Z79.02 Long term (current) use of antithrombotics/antiplatelets; Z79.4 Long term (current) use of insulin; Z79.82 Long term (current) use of aspirin; Z79.890 Hormone replacement therapy; Z79.899 Other long term (current) drug therapy; Z99.81 Dependence on supplemental oxygen; Z86.73 Personal history of transient ischemic attack (TIA), and cerebral infarction without residual deficits; Z95.5 Presence of coronary angioplasty implant and graft; Z87.891 Personal history of nicotine dependence; Z90.49 Acquired absence of other specified parts of digestive tract; Z98.42 Cataract extraction status, left eye; Z98.41 Cataract extraction status, right eye; Z96.1 Presence of intraocular lens; Z86.74 Personal history of sudden cardiac arrest; Z82.49 Family history of ischemic heart disease and other diseases of the circulatory system; Z81.1 Family history of alcohol abuse and dependence
CPT/HCPCS: 36415; 71045; 71046; 71250; 76604; 80053; 82945; 83036; 83615; 83735; 83880; 84157; 84484; 85025; 85610; 85730; 87070; 87075; 87102; 87116; 87205; 87206; 87252; 87496; 87498; 87502; 87529; 87634; 87798; 88108; 88305; 88341; 88342; 89050; 93005; 99285